=== PATIENT | female | born 1945 | race Caucasian/White ===

== ENCOUNTER 2018-08-08 08:17 | Day surgery (SDC) | payer OTHER, MEDICARE ==
[2018-08-02 13:57] LABS: Absolute Lymphocytes (CBC) 1.8 K/uL (0.7-4.9); Absolute Monocytes 0.4 K/uL (0.1-1.3); Absolute Neutrophil 5.2 K/uL (1.8-8.0); Basophils % 0.5 % (0-1.3); Eosinophils % 2.2 % (0-4.4); Hematocrit 42.7 % (36.0-45.0); Lymphocytes % 23.8 % (15.3-44.8); MPV 8.4 fL (7.6-11.3); Monocytes % 5.5 % (3.3-12.3); RBC Red Blood Cell Count 4.78 M/uL (3.86-4.86)
[2018-08-02 14:03] LABS: Protime INR 0.95
[2018-08-02 14:09] LABS: Potassium 3.8 mmol/L (3.5-5.1)
--- NOTE | 2018-08-03 05:30 | EKG ---
Test Date: 2018-08-02 Test Time: 12:01:06 Pigment Processor: WILLIAM MEASUREMENT RESULTS: Intervals: Rate: 88 [place]: 198 QRSD: 84 QT: 356 QTc: 430 [place]: P: 48 [place]: 198 QRS: -19 T: 47 INTERPRETIVE STATEMENTS: Sinus rhythm with occasional premature ventricular complexes Abnormal ECG Compared to ECG 11/13/2012 09:25:01 Ventricular premature complex(es) now present Sinus bradycardia no longer present Electronically Signed On 08-03-18 05:29:53 CDT by Enrike Roach
--- OUTSIDE RECORDS SUMMARY | 2018-08-08 08:37 | XMS REPORT | Clinical Summary ---
:1945 Author Organization [facility] Address [address] [place] [address] Care Team Providers Name Role Phone Sourav Gomez MD Primary Care Provider Allergies Active Allergy Reactions Severity Noted Date Comments Hydrocodone-Acetaminophen GI Intolerance, Hives High 06/11/2016 Medications Medication Sig Dispensed Refills Start End Status Date Date losartan (COZAAR) 100 Take 100 mg by 0 Active MG tablet mouth daily. hydroCHLOROthiazide Take 25 mg by 0 Active (HYDRODIURIL) 25 MG mouth daily. tablet amLODIPine (NORVASC) 10 0 Active mg tablet 7 losartan-hydrochlorothi 0 Active azide (HYZAAR) 100-25 7 mg per tablet simvastatin (ZOCOR) 40 0 Active MG tablet 7 COMBIVENT RESPIMAT 0 Active 20-100 mcg/actuation 7 mist inhaler anastrozole (ARIMIDEX) Take 1 mg by 0 Active 1 mg chemo tablet mouth. 6 aspirin (ECOTRIN) 81 MG Take 81 mg by 0 Active enteric coated tablet mouth daily. calcium Take by mouth. 0 Active carbonate/vitamin D3 (CALCIUM 600 + D,3, ORAL) ascorbic acid, vitamin Take 500 mg by 0 Active C, (ascorbic acid with mouth daily. rhona hips) 500 MG tablet potassium 99 mg tablet Take by mouth. 0 Active omega-3/dha/epa/dpa/fis Take by mouth. 0 Active h oil (OMEGA-3 2100 ORAL) therapeutic Take 1 tablet 0 Active multivitamin by mouth daily. (THERAGRAN) tablet garlic 1,000 mg capsule Take by mouth. 0 Active cinnamon bark 500 mg Take 500 mg by 0 Active capsule mouth daily. albuterol (PROAIR Inhale 2 puffs 18 g 11 Active HFA,PROVENTIL every 6 (six) 9 020 HFA,VENTOLIN HFA) 90 hours as needed mcg/actuation inhaler for wheezing. fluticasone-vilanterol Inhale 1 3 each 1 Active (BREO ELLIPTA) 200-25 inhalations 9 019 mcg/dose blister with once daily for device powder for 90 days. inhalation budesonide-formoterol Inhale 2 puffs 0 Discontinued (SYMBICORT) 160-4.5 2 (two) times a 018 mcg/actuation inhaler day. fluticasone-vilanterol Inhale 1 1 each 3 Discontinued (BREO ELLIPTA) 200-25 inhalations 8 019 mcg/dose blister with once daily. 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 Encounters Date Type Specialty Care Team Description 07/03/2018 Refill Pulmonology Aminata Soriano MA 06/04/2018 Office Visit Pulmonology Yelena Willard MD Mild intermittent asthma, unspecified whether complicated (Primary Dx) 04/30/2018 Clinical Support Pulmonology Yelena Willard MD Dyspnea, unspecified type Randi Thomas 04/30/2018 Clinical Support Pulmonology Yelena Willard MD Dyspnea, unspecified type Randi Thomas 04/30/2018 Office Visit Pulmonology Yelena Willard MD Dyspnea, unspecified type (Primary Dx); Seasonal allergic rhinitis due to pollen; Intermittent asthma, unspecified asthma severity, unspecified whether complicated after 08/07/2017 Family History Medical History Relation Name Comments Cancer Mother Relation Name Status Comments Mother Social History Tobacco Use Types Packs/Day Years Used Date Former Smoker Cigarettes 1 30 Smokeless Tobacco: Never Used Alcohol Use Drinks/Week oz/Week Comments No Sex Assigned at Date Recorded Not on file Job Start Date Occupation Industry Not on file Not on file Not on file Travel History Travel Start Travel End No recent travel history available. Last Filed Vital Signs Vital Sign Reading Time Taken Blood Pressure 158/80 06/04/2018 10:55 AM [employer] Pulse 61 06/04/2018 10:55 AM [employer]ION SPECIALIST Temperature 36.8 C (98.2 F) 06/04/2018 10:55 AM [employer] EXTENSION SPECIALIST Respiratory Rate - - Oxygen Saturation 100% 06/04/2018 10:55 AM [employer] EXTENSION SPECIALIST Inhaled Oxygen Concentration - - Weight 76.9 kg (169 lb 8 oz) 06/04/2018 10:55 AM [employer] EXTENSION SPECIALIST Height 166.4 cm (5' 5.5") 04/30/2018 9:55 AM [employer]ESTRY EXTENSION SPECIALIST Body Mass Index 27.78 06/04/2018 10:55 AM [employer]Y EXTENSION SPECIALIST Plan of Treatment Date Type Specialty Care Team Description 12/03/2018 Office [place] [id number] [id number] Health Maintenance Due Date Last Done Comments BREAST CANCER SCREENING 10/21/1993 COLON CANCER SCREENING 10/21/1993 SHINGLES VACCINES (#1) 10/21/1993 65+ PNEUMOCOCCAL VACCINE (1 of 2 - PCV13) 10/21/2008 PNEUMOCOCCAL POLYSACCHARIDE VACCINE AGE 65 AND OVER 10/21/2008 INFLUENZA VACCINE 12/20/2017 Implants Implanted Type Area [employer] Device Shelf Model / Identifier Expiration Serial / Date Lot Oxf Twin-Pegged Cmntd Fem Sm - [id number] IMPLANT Left: [employer] [id number] / Implanted: Qty: 1 on 06/11/2016 by Sanchez Gallego MD DEVICES Knee / [id number] Cement Bone Full-Dose Premixed With Tobramycin Simplex P 1ea - [id number] Surgical Left: TING 09/18/2017 [id number] / Implanted: Qty: 1 on 06/11/2016 by Sanchez Gallego MD Bone Cement Knee ORTHOPEDICS / HIPS-KNEES [id number] Procedures Procedure Name Priority Date/Time Associated Diagnosis Comments PULMONARY FUNCTION Routine 04/30/2018 10:27 AM Dyspnea, unspecified Results for this TEST [employer]Y EXTENSION SPECIALIST type procedure are in the results section. after 08/07/2017 Results Pulmonary function tests, complete (04/30/2018 10:27 AM FORESTRY EXTENSION SPECIALIST) FEV1 Post 1.93 1.67 - 2.90 L [facility] FEV1/FVC % Post 66.56 65.29 - 84.88 % [facility] MVV Post 80.37 72.13 - 97.59 L/min [facility] FVC Post 2.89 2.31 - 3.76 L [facility] PEF Post 7.39 3.77 - 7.36 L/s [facility] FEF 25-75% Post 0.99 0.50 - 3.09 L/s [facility] R0.5IN Pre 3.09 3.06 - 3.06 cmH2O*s/L [facility] FRCpl Pre 3.73 1.98 - 3.62 L [facility] RV Pre 3.01 1.62 - 2.77 L [facility] TLC Pre 5.66 4.20 - 6.18 L [facility] RV % TLC Pre 53.23 34.53 - 53.71 % [facility] VC Pre 2.65 2.31 - 3.76 L [facility] ERV Pre 0.72 0.61 - 0.61 L [facility] IC Pre 1.92 2.09 - 2.09 L [facility] sR0.5IN Pre 13.44 cmH2O*s [facility] Raw Pre 5.42 3.06 - 3.06 cmH2O*s/L [facility] sGaw Predicted 0.04 0.10 - 0.10 1/(cmH2O*s) [facility] FEV1 Pre 1.61 1.67 - 2.90 L [facility] FEV1/FVC % Pre 61.77 65.29 - 84.88 % [facility] MVV Pre 78.93 72.13 - 97.59 L/min [facility] FVC Pre 2.60 2.31 - 3.76 L [facility] PEF Pre 6.42 3.77 - 7.36 L/s [facility] FEF 25-75% Pre 0.68 0.50 - 3.09 L/s [facility] DLCO Pre 18.62 10.56 - 25.25 ml/(min*mmHg) [facility] DL/VA Pre 3.91 2.57 - 5.32 ml/(min*mmHg*L) [facility] VA SB Pre 4.76 5.04 - 5.04 L [facility] FEV1 Predicted 2.29 [facility] FEV1 LLN 1.67 [facility] FEV1 % Pre of Predicted 70.3 % [facility] FEV1 % Post of Predicted 84.2 % [facility] FEV1 % Change 19.9 % [facility] FVC Predicted 3.04 [facility] FVC LLN 2.31 [facility] FVC % Pre of Predicted 85.6 % [facility] FVC % Post of Predicted 95.3 % [facility] FVC % Change 11.3 % [facility] FEV1/FVC % Predicted 75 [facility] FEV1/FVC % LLN 65 [facility] FEV1/FVC % Pre of Predicted 82.3 % [facility] FEV1/FVC % Post of Predicted 88.6 % [facility] FEV1/FVC % Change 7.8 % [facility] FEF 25-75% Predicted 1.80 [facility] FEF 25-75% LLN 0.50 [facility] FEF 25-75% % Pre of Predicted 37.9 % [facility] FEF 25-75% % Post of Predicted 55.2 % [facility] FEF 25-75% % Change 45.4 % [facility] PEF Predicted 5.56 [facility] PEF LLN 3.77 [facility] PEF % Pre of Predicted 115.5 % [facility] PEF % Post of Predicted 132.8 % [facility] PEF % Change 15.0 % [facility] VC Predicted 3.04 [facility] VC LLN 2.31 [facility] VC % Pre of Predicted 87.1 % [facility] ERV Predicted 0.61 [facility] ERV LLN 0.61 [facility] ERV % Pre of Predicted 119.6 % [facility] FRCpl % Predicted 2.80 [facility] FRCpl % LLN 1.98 [facility] FRCpl % Pre of Predicted 133.4 % [facility] IC Predicted 2.09 [facility] IC LLN 2.09 [facility] IC % Pre of Predicted 91.9 % [facility] RV Predicted 2.20 [facility] RV LLN 1.62 [facility] RV % Pre of Predicted 137.2 % [facility] RV % TLC Predicted 44 [facility] RV % TLC LLN 35 [facility] RV % TLC % Pre of Predicted 120.6 % [facility] TLC Predicted 5.19 [facility] TLC LLN 4.20 [facility] TLC % Pre of Predicted 109.0 % [facility] Raw Predicted 3.06 [facility] Raw LLN 3.06 [facility] Raw % Pre of Predicted 177.3 % [facility] R0.5IN Predicted 3.06 [facility] R0.5IN LLN 3.06 [facility] R0.5IN % Pre of Predicted 101.0 % [facility] sGaw Predicted 0.10 [facility] sGaw LLN 0.10 [facility] sGaw % Pre of Predicted 41.6 % [facility] DLCO Predicted 17.90 [facility] DLCO LLN 10.56 [facility] DLCO % Pre of Predicted 104.0 % [facility] DLCOc Predicted 17.90 [facility] DLCOc LLN 10.56 [facility] DL/VA Predicted 3.95 [facility] DL/VA LLN 2.57 [facility] DL/VA % Pre of Predicted 99.2 % [facility] KCOc SB Predicted 3.95 [facility] KCOc SB LLN 2.57 [facility] VA SB Predicted 5.04 [facility] VA SB LLN 5.04 [facility] VA SB % Pre of Predicted 94.4 % [facility] MIP Predicted 49.42 [facility] MIP LLN 22.70 [facility] MEP Predicted 61.16 [facility] MEP LLN 19.26 [facility] MVV Predicted 85 [facility] MVV LLN 72 [facility] MVV % Pre of Predicted 93.0 % [facility] MVV % Post of Predicted 94.7 % [facility] MVV Change 1.8 % [facility] Narrative Performed At Performing Organization Address City/State/[facility] Phone Number [facility] [address] [place] [address] after 08/07/2017 Insurance Payer Benefit Plan / Group Subscriber ID Type Phone Address MEDICARE MEDICARE PART A AND B xxxxxxxxxxx Medicare [place], [place] AARP AARP SUPPLEMENT xxxxxxxxxxx Commercial Advance Directives Patient has advance care planning documents, and code status on file. For more information, please contact:Michael Marcelino[address] [place] [address] Code Status Date Activated Date Inactivated Comments Full Code 06/11/2016 5:02 PM 06/15/2016 5:09 PM Code Status decision reached by: Patient Full Code 06/11/2016 12:43 PM 06/11/2016 5:02 PM Code Status decision reached by: Patient
--- OUTSIDE RECORDS SUMMARY | 2018-08-08 08:40 | XMS REPORT | Continuity of Care Document ---
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 010 and Spine COPD (<span Active Problem 09/13/2016 Ortho ID="[id number]">Co and Spine nfirmed</span>) Hypercholesteremia Active Problem 09/13/2016 [facility] Hypertension Active Problem 09/13/2016 [facility] Arthritis Active Problem 06/14/2016 [facility] OSTEOARTHRITIS OF Active [facility] KNEE, UNSPECIFIED [place] Medications Medication Details Route Status Patient Ordering Order Source Instructions Provider Date celecoxib 200 MG 200 mg=1 cap, Active Oral Capsule PO, BID, # 28 2017 Ortho [Celebrex] cap, 0 and Refill(s), Spine Pharmacy: [facility] [id number] tramadol 50 mg=1 tab, PO, Active hydrochloride 50 MG Q6H, PRN Pain, X 2017 Ortho Oral Tablet 10 day, # 40 and tab, 0 Spine Refill(s), given to patient rifaMPIN 150 mg 600 mg=4 cap, Active oral capsule PO, [id number], X 2017 Ortho 14 day, # 56 and cap, 0 Spine Refill(s), Pharmacy: [facility] [id number] POLYETHYLENE GLYCOL 17 gm, PO, Active 3350 142 MG/ML Oral Daily, X 15 day, 2017 Ortho Solution [Miralax] # 255 gm, 0 and Refill(s), Spine Pharmacy: [facility] [id number] Docusate Sodium 100 100 mg=1 cap, Active MG Oral Capsule PO, BID, # 20 2017 Ortho cap, 0 and Refill(s), Spine Pharmacy: [facility] [id number] carvedilol 6.25 mg 3.125 mg=0.5 Active oral tablet tab, PO, Q12H, # 2017 Ortho 30 tab, 0 and Refill(s), Spine Pharmacy: [facility] [id number] Aspirin 325 MG 325 mg=1 tab, Active Enteric Coated PO, BID, # 60 2017 Ortho Tablet tab, 0 and Refill(s), Spine Pharmacy: [facility] [id number] ferrous sulfate 325 325 mg=1 tab, Active mg oral enteric PO, BID, give 2017 Ortho coated tablet with orange and juice, # 60 tab, Spine 1 Refill(s), Pharmacy: [facility] [place] [id number] anastrozole 1 mg, 1 tab, No Longer Route: PO, Drug Active 2016 Ortho form: TAB, and Bedtime, Dosing Spine Weight 73.091, kg, Start date: 09/09/16 21:00:00 CDT, Duration: 30 day, Stop date: 10/08/16 21:00:00 CDTNotes: (Same as: Arimidex) Chemotherapy agent/Handle with caution WASTE: F/P - Black; E - Yellow Coreg 3.125 mg, 0.5 No Longer tab, Route: PO, Active 2016 Ortho Drug form: TAB, and Q12H, Dosing Spine Weight 73.091, kg, Start date: 09/09/16 21:00:00 CDT, Duration: 30 day, Stop date: 10/09/16 9:00:00 CDTNotes: Give with food. (Same As: Coreg) Rifampin 600 mg, 4 cap, No Longer Route: PO, Drug Active 2016 Ortho form: CAP, and PRND64H, Dosing Spine Weight 73.091, kg, Start date: 09/09/16 15:00:00 CDT, Duration: 30 day, Stop date: 10/08/16 15:00:00 CDTNotes: (Same as: Rifadin) Dexamethasone 10 mg, 1 mL, Inactive Route: IVP, Drug 2016 Ortho form: INJ, ONCE, and Dosing Weight Spine 73.091, kg, Start date: 09/09/16 12:25:00 CDT, Stop date: 09/09/16 12:25:00 CDTNotes: MEDICATION WASTE Product Size: 10 mg Product Wasted: ___ mg Hydralazine 5 mg, 0.25 mL, No Longer Route: IV, Drug Active 2016 Ortho form: INJ, Q4H, and Dosing Weight Spine 73.091, kg, PRN Hypertension, Start date: 09/09/16 12:23:00 CDT, Duration: 30 day, Stop date: 10/09/16 12:22:00 CDT, Systolic Blood pressure greater than 160 mmHgNotes: (Same as: Apresoline) Push over 5 minutes Hydrochlorothiazide 1 tab, Route: No Longer 25 MG / Losartan PO, Drug Form: Active 2016 Ortho Potassium 100 MG TAB, Dosing and Oral Tablet Weight 73.091, Spine kg, Daily, Start date: 09/09/16 9:00:00 CDT, Duration: 30 day, Stop date: 10/08/16 9:00:00 CDTNotes: (losartan-hydroc hlorothiazide 100-25 mg TAB) (Same as: Hyzaar) Non-formulary POLYETHYLENE GLYCOL 17 gm, 1 pkt, No Longer 3350 Route: PO, Drug Active 2016 Ortho form: PWDR, and Daily, Dosing Spine Weight 73.091, kg, Start date: 09/09/16 9:00:00 CDT, Duration: 30 day, Stop date: 10/08/16 9:00:00 CDTNotes: Dissolve in 8 oz of water or juice. (Same as: Miralax) Simvastatin 40 mg, 2 tab, No Longer Route: PO, Drug Active 2016 Ortho form: TAB, and Bedtime, Dosing Spine Weight 73.091, kg, Start date: 09/08/16 21:00:00 CDT, Duration: 30 day, Stop date: 10/07/16 21:00:00 CDTNotes: (Same as: Zocor) celecoxib 200 mg, 1 cap, No Longer Route: PO, Drug Active 2016 Ortho form: CAP, and [id number], Dosing Spine Weight 73.091, kg, Start date: 09/08/16 21:00:00 CDT, Duration: 30 day, Stop date: 10/08/16 9:00:00 CDTNotes: NSAID. Please check indication. Not for seizure. (Same As: CeleBREX) Vancomycin 1,000 mg, Route: No Longer IVPB, Q12H, Active 2016 Ortho Dosing Weight and 73.091, kg, Time Spine Critical Medication, Start date: 09/08/16 21:00:00 CDT, Duration: 4 doses or times, Stop date: 09/10/16 9:00:00 CDT, Pharmacy to adjust dose for renal functionNotes: TIME CRITICAL MEDICATION (Same As: Vancocin) Infusion rate 2001 mg: infuse over 2.5 hours MEDICATION WASTE Product Size: 1000 mg Product Wasted: ___ mg Tranexamic Acid 1.95 gm, 3 tab, Inactive Route: PO, Drug 2016 Ortho form: TAB, ONCE, and Dosing Weight Spine 73.091, kg, Start date: 09/08/16 18:25:00 CDT, Stop date: 09/08/16 18:25:00 CDTNotes: (Same as: Lysteda) Non-Formulary Ondansetron 4 mg, 2 mL, No Longer Route: IV, Drug Active 2016 Ortho form: INJ, Q8H, and Dosing Weight Spine 73.091, kg, PRN Nausea, Start date: 09/08/16 18:25:00 CDT, Duration: 3 doses or times, Stop date: Limited # of timesNotes: (Same as: Zofran) MEDICATION WASTE Product Size: 4 mg Product Wasted: ___ mg Tramadol 100 mg, 2 tab, No Longer Route: PO, Drug Active 2016 Ortho form: TAB, and Q6Hnow, Dosing Spine Weight 73.091, kg, Start date: 09/08/16 18:00:00 CDT, Duration: 30 day, Stop date: 10/08/16 15:00:00 CDTNotes: Not to exceed 400mg/day. (Same As: Ultram) Symbicort 160/4.5 2 puff, Route: No Longer inhalation aerosol INHALER, Drug Active 2016 Ortho with adapter Form: AERO/A, and Dosing Weight Spine 73.091, kg, QID, Start date: 09/08/16 17:00:00 CDT, Stop date: 10/08/16 13:00:00 CDTNotes: (Same as: Symbicort) WASTE: Aerosol - Return to Pharmacy Docusate 100 mg, 1 cap, No Longer Route: PO, Drug Active 2016 Ortho form: CAP, BID, and Dosing Weight Spine 73.091, kg, Start date: 09/08/16 17:00:00 CDT, Duration: 30 day, Stop date: 10/08/16 9:00:00 CDTNotes: (Same as: Colace) (Do Not Crush) Aspirin 325 MG 325 mg, 1 tab, No Longer Enteric Coated Route: PO, Drug Active 2016 Ortho Tablet form: ECTAB, and BID, Dosing Spine Weight 73.091, kg, Start date: 09/08/16 17:00:00 CDT, Duration: 30 day, Stop date: 10/08/16 9:00:00 CDTNotes: (Do Not Crush) Do not crush or chew. Cefazolin 2 gm, 100 mL, No Longer Route: IVPB, Active 2016 Ortho Drug form: INJ, and ABXQ6H, Dosing Spine Weight 73.091, kg, Start date: 09/08/16 14:30:00 CDT, Duration: 6 doses or times, Stop date: 09/09/16 20:30:00 CDTNotes: Same as: Ancef Trazodone 50 mg, 1 tab, No Longer Route: PO, Drug Active 2016 Ortho form: TAB, and Bedtime, Dosing Spine Weight 73.091, kg, PRN Insomnia, Start date: 09/08/16 12:25:00 CDT, Duration: 30 day, Stop date: 10/08/16 12:24:00 CDTNotes: (Same As: Desyrel) Ondansetron 4 mg, 2 mL, Inactive Route: IVP, Drug 2016 Ortho form: INJ, Q8H, and Dosing Weight Spine 73.091, kg, PRN Nausea & Vomiting, Start date: 09/08/16 12:25:00 CDT, Duration: 30 day, Stop date: 10/08/16 12:24:00 CDTNotes: (Same as: Shaun) MEDICATION WASTE Product Size: 4 mg Product Wasted: ___ mg Melatonin 3 mg, 1 tab, No Longer Route: PO, Drug Active 2016 Ortho form: TAB, and Bedtime, Dosing Spine Weight 73.091, kg, PRN Insomnia, Start date: 09/08/16 12:25:00 CDT, Duration: 30 day, Stop date: 10/08/16 12:24:00 CDTNotes: (Same as: Melatonin) Bisacodyl 10 mg, 1 supp, No Longer Route: CT, Drug Active 2016 Ortho form: SUPP, and Daily, Dosing Spine Weight 73.091, kg, PRN Constipation, Start date: 09/08/16 12:25:00 CDT, Duration: 30 day, Stop date: 10/08/16 12:24:00 CDTNotes: (Same As: Dulcolax, Bisco-Lax) Morphine 4 mg, 0.4 mL, No Longer Route: IVP, Drug Active 2016 Ortho form: INJ, Q4H, and Dosing Weight Spine 73.091, kg, PRN Pain Score 7-10, Start date: 09/08/16 12:25:00 CDT, Duration: 30 day, Stop date: 10/08/16 12:24:00 CDTNotes: (Same as:MORPhine Sulfate) Oxycodone 5 mg, 1 tab, No Longer Hydrochloride 5 MG Route: PO, Drug Active 2016 Ortho Oral Tablet form: TAB, Q4H, and Dosing Weight Spine 73.091, kg, PRN Pain Score 6-10, Start date: 09/08/16 12:25:00 CDT, Duration: 30 day, Stop date: 10/08/16 12:24:00 CDTNotes: (Same as: Roxicodone) Milk of Magnesia 30 ml, Route: No Longer PO, Drug Form: Active 2017 Ortho SUSP, Dosing and Weight 73.091, Spine kg, Daily, PRN Constipation, Start date: 09/08/16 12:25:00 CDT, Duration: 30 day, Stop date: 10/08/16 12:24:00 CDTNotes: (Same as: Milk of Magnesia, MOM) sodium chloride 1,000 mL, Rate: No Longer 0.9% 1000 ml INJ 85 ml/hr, Infuse Active 2016 Ortho 1,000 mL over: 11.8 hr, and Route: IV, Spine Dosing Weight 73.091 kg, Total Volume: 1,000, Start date: 09/08/16 12:25:00 CDT, Duration: 30 day, Stop date: 10/08/16 12:24:00 CDT Tylenol 650 mg, 2 tab, No Longer Route: PO, Drug Active 2016 Ortho form: TAB, Q6H, and Dosing Weight Spine 73.091, kg, PRN For Temp > 100.4 F, Start date: 09/08/16 12:25:00 CDT, Duration: 30 day, Stop date: 10/08/16 12:24:00 CDTNotes: Do not exceed 4 gm/day. (Same as: Tylenol) Maalox Advanced 15 mL, Route: No Longer Regular Strength PO, Drug Form: Active 2017 Ortho SUSP SUSP, Dosing and Weight 73.091, Spine kg, QID, PRN Indigestion, Start date: 09/08/16 12:25:00 CDT, Duration: 30 day, Stop date: 10/08/16 12:24:00 CDTNotes: (aluminum hydroxide-magnes ium hyd- simethicone [id number]/5ml 30 ml ud JOON) Famotidine 20 mg, 1 tab, No Longer Route: PO, Drug Active 2016 Ortho form: TAB, BID, and Dosing Weight Spine 73.091, kg, PRN Indigestion, Start date: 09/08/16 12:25:00 CDT, Duration: 30 day, Stop date: 10/08/16 12:24:00 CDTNotes: (Same as: Pepcid) Hydromorphone 0.5 mg, 0.25 mL, Inactive Route: IVP, Drug 2016 Ortho form: INJ, and Q5Min, Dosing Spine Weight 73.091, kg, PRN Pain Score 7-10, Start date: 09/08/16 6:50:00 CDT, Duration: 4 doses or times, Stop date: 09/08/16 13:00:00 CDTNotes: Same as Dilaudid Oxycodone 5 mg, 1 tab, Inactive Route: PO, Drug 2016 Ortho form: TAB, Q4H, and Dosing Weight Spine 73.091, kg, PRN Pain Score 4-6, Start date: 09/08/16 6:50:00 CDT, Stop date: 09/08/16 13:00:00 CDTNotes: (Same as: Roxicodone) Labetalol 10 mg, 2 mL, Inactive Route: IVP, Drug 2016 Ortho form: INJ, and Q5Min, Dosing Spine Weight 73.091, kg, PRN Elevated BP, Start date: 09/08/16 6:50:00 CDT, Duration: 5 doses or times, Stop date: 09/08/16 13:00:00 CDT Naloxone 0.4 mg, 1 mL, Inactive Route: IVP, Drug 2016 Ortho form: INJ, and Q2MIN, Dosing Spine Weight 73.091, kg, PRN Narcotic Reversal, Start date: 09/08/16 6:50:00 CDT, Duration: 8 doses or times, Stop date: Limited # of timesNotes: Same as Narcan Ondansetron 4 mg, 2 mL, Inactive Route: IVP, Drug 2016 Ortho form: INJ, ONCE, and Dosing Weight Spine 73.091, kg, PRN Nausea & Vomiting, Start date: 09/08/16 6:50:00 CDTNotes: (Same as: Zofran) MEDICATION WASTE Product Size: 4 mg Product Wasted: ___ mg Flumazenil 0.2 mg, 2 mL, Inactive Route: IVP, Drug 2016 Ortho form: INJ, PRN, and Dosing Weight Spine 73.091, kg, PRN Benzodiazepine Reversal, Initial dose, Start date: 09/08/16 6:50:00 CDT, Stop date: 09/08/16 13:00:00 CDTNotes: (Same as: Romazicon) vancomycin + sodium 500 mg, Route: No Longer chloride 0.9% 250 IRRIG, ONCALL, Active 2016 Ortho mL INJ (for IV set) Start date: and 250 mL 09/08/16 6:00:00 Spine CDT, Duration: 1 doses or times, Stop date: 09/08/16 14:00:00 CDTNotes: TIME CRITICAL MEDICATION (Same As: Vancocin) ropivacaine 100 mL, Route: No Longer InFILtration(loc Active 2016 Ortho al), Drug Form: and INJ, ONCALL, Spine Start date: 09/08/16 6:00:00 CDT, Stop date: 09/08/16 14:00:00 CDTNotes: NOT FOR IV use Ropivacaine 5 mg/mL (49.25 mL) Epinephrine 1 mg/mL (0.5 mL) Clonidine 0.1 mg/mL (0.8 mL) Ketorolac 30 mg/mL (1 mL) Normal Saline 48.45 mL polymyxin B sulfate 125,000 unit, No Longer + sodium chloride Route: IRRIG, Active 2016 Ortho 0.9% 250 mL INJ ONCALL, Start and (for IV set) 250 mL date: 09/08/16 Spine 6:00:00 CDT, Duration: 1 doses or times, Stop date: 09/08/16 14:00:00 CDTNotes: (Same as: Polymyxin B Sulfate) Ancef 1 gm, IV, Q8H, 0 Active Refill(s) 2017 Ortho and Spine Lactated Ringers 1,000 mL, Rate: Inactive 1,000 mL 40 ml/hr, Infuse 2017 Ortho over: 25 hr, and Route: IV, Spine Dosing Weight 73.091 kg, Total Volume: 1,000, Start date: 09/08/16 5:31:00 CDT, Duration: 30 day, Stop date: 10/08/16 5:30:00 CDT Ancef 2 gm, 100 mL, Inactive Route: IVPB, 2017 Ortho Drug form: INJ, and ONCE, Dosing Spine Weight 73.091, kg, Start date: 09/08/16 5:30:00 CDT, Duration: 1 doses or times, Stop date: 09/08/16 5:30:00 CDT, Surgical Prophylaxis Only; For patients Notes: Same as: Ancef Celebrex 400 mg, Route: Inactive PO, Drug form: 2017 Ortho CAP, ONCE, and Dosing Weight Spine 73.091, kg, Start date: 09/08/16 5:30:00 CDT, Stop date: 09/08/16 5:30:00 CDT Tranexamic Acid 1,950 mg, Route: Inactive PO, ONCE, Dosing 2017 Ortho Weight 73.091, and kg, Start date: Spine 09/08/16 5:30:00 CDT, Stop date: 09/08/16 5:30:00 CDT Dexamethasone 10 mg, Route: Inactive IV, ONCE, Dosing 2017 Ortho Weight 73.091, and kg, Start date: Spine 09/08/16 5:30:00 CDT, Stop date: 09/08/16 5:30:00 CDT Zofran 4 mg, Route: IV, Inactive ONCE, Dosing 2017 Ortho Weight 73.091, and kg, Start date: Spine 09/08/16 5:30:00 CDT, Stop date: 09/08/16 5:30:00 CDT vancomycin 1 g 1 gm, IV, Q12H, Active intravenous # 20 doses or 2017 Ortho injection times, 0 and Refill(s) Spine Home Medication PO, Daily, No Longer Refill(s) 0 Active 2016 Ortho and Spine aspirin 81 mg 81 mg=1 tab, PO, No Longer tablet, enteric Daily, # 90 tab, Active 2017 Ortho coated 3 Refill(s) and Spine Vancomycin 750 mg, IV, No Longer Q12H, 0 Active 2017 Ortho Refill(s) and Spine ceFAZolin 2 g 2 gm, IV, Q8H, # No Longer injection 30 doses or Active 2016 Ortho times, 0 and Refill(s) Spine Ancef 2 gm, 100 mL, Inactive Route: IVPB, 2016 Ortho Drug form: INJ, and Q6H, Dosing Spine Weight 72.273, kg, Start date: 08/10/16 14:00:00 CDT, Stop date: 09/09/16 8:00:00 CDT, > 50 kg; Pediatric DosingNotes: Same as Ancef Aspirin 81 MG 81 mg=1 tab, PO, Active Chewable Tablet BID, # 42 tab, 0 2016 Ortho Refill(s), and Pharmacy: [facility] [id number] celecoxib 200 MG 200 mg=1 cap, Active Oral Capsule PO, BID, # 28 2016 Ortho [Celebrex] cap, 0 and Refill(s), Spine Pharmacy: [facility] [id number] Dexamethasone 10 mg, 1 mL, Inactive Route: IVP, Drug 2016 Ortho form: INJ, ONCE, and Dosing Weight Spine 72.955, kg, Start date: 08/09/16 14:30:00 CDT, Stop date: 08/09/16 14:30:00 CDTNotes: MEDICATION WASTE Product Size: 10 mg Product Wasted: ___ mg anastrozole 1 mg, 1 tab, No Longer Route: PO, Drug Active 2016 Ortho form: TAB, and Daily, Dosing Spine Weight 72.273, kg, Start date: 08/09/16 9:00:00 CDT, Duration: 30 day, Stop date: 09/07/16 9:00:00 CDTNotes: (Same as: Arimidex) Chemotherapy agent/Handle with caution WASTE: F/P - Black; E - Yellow Hydrochlorothiazide 1 tab, Route: No Longer 25 MG / Losartan PO, Drug Form: Active 2017 Ortho Potassium 100 MG TAB, Dosing and Oral Tablet Weight 72.273, Spine kg, Daily, Start date: 08/09/16 9:00:00 CDT, Duration: 30 day, Stop date: 09/07/16 9:00:00 CDTNotes: (losartan-hydroc hlorothiazide 100-25 mg TAB) (Same as: Hyzaar) Non-formulary POLYETHYLENE GLYCOL 17 gm, 1 pkt, No Longer 3350 Route: PO, Drug Active 2016 Ortho form: PWDR, and Daily, Dosing Spine Weight 72.273, kg, Start date: 08/09/16 9:00:00 CDT, Duration: 30 day, Stop date: 09/07/16 9:00:00 CDTNotes: Dissolve in 8 oz of water or juice. (Same as: Miralax) tramadol 50 mg=1 tab, PO, Active hydrochloride 50 MG Q4H, PRN Pain, X 2017 Ortho Oral Tablet 10 day, # 60 and tab, 0 Refill(s) Spine Vancomycin 1,000 mg, Route: No Longer IVPB, Q12H, Active 2016 Ortho Dosing Weight and 72.955, kg, Time Spine Critical Medication, Start date: 08/08/16 23:30:00 CDT, Duration: 4 doses or times, Stop date: 08/10/16 11:30:00 CDT, Pharmacy to adjust dose for renal functionNotes: TIME CRITICAL MEDICATION (Same As: Vancocin) Infusion rate 2001 mg: infuse over 2.5 hours MEDICATION WASTE Product Size: 1000 mg Product Wasted: ___ mg Celebrex 200 mg, 1 cap, Inactive Route: PO, Drug 2016 Ortho form: CAP, BID, and Dosing Weight Spine 72.273, kg, Start date: 08/08/16 21:00:00 CDT, Duration: 30 day, Stop date: 09/07/16 9:00:00 CDTNotes: NSAID. Please check indication. Not for seizure. (Same As: CeleBREX) Simvastatin 40 mg, 1 tab, No Longer Route: PO, Drug Active 2016 Ortho form: TAB, and Bedtime, Dosing Spine Weight 72.273, kg, Start date: 08/08/16 21:00:00 CDT, Duration: 30 day, Stop date: 09/06/16 21:00:00 CDTNotes: (Same as: Zocor) meloxicam 7.5 mg, 1 tab, No Longer Route: PO, Drug Active 2016 Ortho form: TAB, BID, and Dosing Weight Spine 72.273, kg, Start date: 08/08/16 21:00:00 CDT, Duration: 30 day, Stop date: 09/07/16 9:00:00 CDTNotes: (Same as: Mobabena) celecoxib 200 mg, 1 cap, No Longer Route: PO, Drug Active 2016 Ortho form: CAP, Q12H, and Dosing Weight Spine 72.273, kg, Start date: 08/08/16 21:00:00 CDT, Duration: 30 day, Stop date: 09/07/16 9:00:00 CDTNotes: NSAID. Please check indication. Not for seizure. (Same As: CeleBREX) Tranexamic Acid 1.95 gm, 3 tab, Inactive Route: PO, Drug 2016 Ortho form: TAB, ONCE, and Dosing Weight Spine 72.955, kg, Start date: 08/08/16 20:30:00 CDT, Stop date: 08/08/16 20:30:00 CDTNotes: (Same as: Lysteda) Non-Formulary Ondansetron 4 mg, 2 mL, No Longer Route: IV, Drug Active 2016 Ortho form: INJ, Q8H, and Dosing Weight Spine 72.955, kg, PRN Nausea, Start date: 08/08/16 20:30:00 CDT, Duration: 3 doses or times, Stop date: Limited # of timesNotes: (Same as: Zofran) MEDICATION WASTE Product Size: 4 mg Product Wasted: ___ mg Symbicort 160/4.5 2 puff, Route: No Longer inhalation aerosol INHALER, Drug Active 2016 Ortho with adapter Form: AERO/A, and Dosing Weight Spine 72.273, kg, BID, Start date: 08/08/16 20:00:00 CDT, Duration: 30 day, Stop date: 09/07/16 8:00:00 CDTNotes: (Same as: Symbicort) WASTE: Aerosol - Return to Pharmacy Docusate 100 mg, 1 cap, No Longer Route: PO, Drug Active 2016 Ortho form: CAP, BID, and Dosing Weight Spine 72.273, kg, Start date: 08/08/16 17:00:00 CDT, Duration: 30 day, Stop date: 09/07/16 9:00:00 CDTNotes: (Same as: Colace) (Do Not Crush) Famotidine 20 mg, 1 tab, No Longer Route: PO, Drug Active 2016 Ortho form: TAB, BID, and Dosing Weight Spine 72.955, kg, Start date: 08/08/16 17:00:00 CDT, Duration: 30 day, Stop date: 09/07/16 9:00:00 CDTNotes: (Same as: Pepcid) Aspirin 325 MG 325 mg, 1 tab, No Longer Enteric Coated Route: PO, Drug Active 2016 Ortho Tablet form: ECTAB, and BID, Dosing Spine Weight 72.273, kg, Start date: 08/08/16 17:00:00 CDT, Duration: 30 day, Stop date: 09/07/16 9:00:00 CDTNotes: (Do Not Crush) Do not crush or chew. Cefazolin 2 gm, 100 mL, No Longer Route: IVPB, Active 2016 Ortho Drug form: INJ, and Q6H, Dosing Spine Weight 72.955, kg, Start date: 08/08/16 17:00:00 CDT, Duration: 6 doses or times, Stop date: 08/09/16 23:00:00 CDTNotes: Same as: Ancef Saline Flush 0.9% 10 mL, Route: No Longer IVP, Drug Form: Active 2016 Ortho INJ, Dosing and Weight 72.273, Spine kg, Q8H, Start date: 08/08/16 16:00:00 CDT, Duration: 30 day, Stop date: 09/07/16 8:00:00 CDTNotes: Same as: BD Posiflush Sterile Lidocaine 50 mg, 5 mL, No Longer Hydrochloride 10 Route: Active 2016 Ortho MG/ML Injectable INTRADERM, Drug and Solution Form: INJ, Spine Dosing Weight 72.273, kg, ONCALL, Start date: 08/08/16 15:00:00 CDT, Duration: 30 day, Stop date: 09/07/16 14:59:00 CDTNotes: (Same as: Xylocaine) Saline Flush 0.9% 10 mL, Route: No Longer IVP, Drug Form: Active 2017 Ortho INJ, Dosing and Weight 72.273, Spine kg, PRN, PRN Line Flush, Start date: 08/08/16 14:59:00 CDT, Duration: 30 day, Stop date: 09/07/16 14:58:00 CDTNotes: Same as: BD Posiflush Sterile Acetaminophen 300 1 tab, Route: No Longer MG / Codeine PO, Drug Form: Active 2017 Ortho Phosphate 30 MG TAB, Dosing and Oral Tablet Weight 72.273, Spine [Tylenol with kg, Q4H, PRN Codeine #3] Pain Score 4-6, Start date: 08/08/16 14:30:00 CDT, Duration: 30 day, Stop date: 09/07/16 14:29:00 CDTNotes: Do not exceed 4gm/day of acetaminophen. (Same as: Tylenol with Codeine # 3) tramadol 50 mg, 1 tab, No Longer hydrochloride 50 MG Route: PO, Drug Active 2016 Ortho Oral Tablet form: TAB, Q6H, and Dosing Weight Spine 72.273, kg, PRN Pain Score 1-3, Start date: 08/08/16 14:30:00 CDT, Duration: 30 day, Stop date: 09/07/16 14:29:00 CDTNotes: Not to exceed 400mg/day. (Same As: Ultram) Ondansetron 4 mg, Route: Inactive IVP, Q8H, Dosing 2016 Ortho Weight 72.273, and kg, PRN Nausea & Spine Vomiting, Start date: 08/08/16 14:30:00 CDT, Duration: 30 day, Stop date: 09/07/16 14:29:00 CDT Bisacodyl 10 mg, 1 supp, No Longer Route: CT, Drug Active 2016 Ortho form: SUPP, and Daily, Dosing Spine Weight 72.273, kg, PRN Constipation, Start date: 08/08/16 14:30:00 CDT, Duration: 30 day, Stop date: 09/07/16 14:29:00 CDTNotes: (Same As: Dulcolax, Bisco-Lax) Morphine 4 mg, 0.4 mL, No Longer Route: IVP, Drug Active 2016 Ortho form: INJ, Q4H, and Dosing Weight Spine 72.955, kg, PRN Pain Score 7-10, Start date: 08/08/16 14:30:00 CDT, Duration: 30 day, Stop date: 09/07/16 14:29:00 CDTNotes: (Same as:MORPhine Sulfate) sodium chloride 1,000 mL, Rate: No Longer 0.9% 1000 ml INJ 85 ml/hr, Infuse Active 2016 Ortho 1,000 mL over: 11.8 hr, and Route: IV, Spine Dosing Weight 72.273 kg, Total Volume: 1,000, Start date: 08/08/16 14:30:00 CDT, Duration: 30 day, Stop date: 09/07/16 14:29:00 CDT Tylenol 650 mg, 2 tab, No Longer Route: PO, Drug Active 2016 Ortho form: TAB, Q6H, and Dosing Weight Spine 72.955, kg, PRN For Temp > 100.4 F, Start date: 08/08/16 14:30:00 CDT, Duration: 30 day, Stop date: 09/07/16 14:29:00 CDTNotes: Do not exceed 4 gm/day. (Same as: Tylenol) Maalox Advanced 30 mL, Route: No Longer Regular Strength PO, Drug Form: Active 2016 Ortho SUSP SUSP, Dosing and Weight 72.955, Spine kg, QID, PRN Indigestion, Start date: 08/08/16 14:30:00 CDT, Duration: 30 day, Stop date: 09/07/16 14:29:00 CDTNotes: (aluminum hydroxide-magnes ium hyd- simethicone [phone]/5ml 30 ml ud JOON) Milk of Magnesia 30 ml, Route: No Longer PO, Drug Form: Active 2017 Ortho SUSP, Dosing and Weight 72.955, Spine kg, Daily, PRN Constipation, Start date: 08/08/16 14:30:00 CDT, Duration: 30 day, Stop date: 09/07/16 14:29:00 CDTNotes: (Same as: Milk of Magnesia, MOM) Oxycodone 5 mg, 1 tab, No Longer Hydrochloride 5 MG Route: PO, Drug Active 2016 Ortho Oral Tablet form: TAB, Q4H, and Dosing Weight Spine 72.955, kg, PRN Pain Score 7-10, Start date: 08/08/16 14:30:00 CDT, Duration: 30 day, Stop date: 09/07/16 14:29:00 CDTNotes: (Same as: Roxicodone) Vancomycin 1 gm, Route: IV, Inactive ONCE, Dosing 2016 Ortho Weight 72.273, and kg, Start date: Spine 08/08/16 12:19:00 CDT, Stop date: 08/08/16 12:19:00 CDT Flumazenil 0.2 mg, 2 mL, Inactive Route: IVP, Drug 2016 Ortho form: INJ, PRN, and Dosing Weight Spine 72.273, kg, PRN Benzodiazepine Reversal, Initial dose, Start date: 08/08/16 11:54:00 CDT, Duration: 30 day, Stop date: 09/07/16 11:53:00 CDTNotes: (Same as: Romazicon) Naloxone 0.4 mg, 1 mL, Inactive Route: IVP, Drug 2016 Ortho form: INJ, and Q2MIN, Dosing Spine Weight 72.273, kg, PRN Narcotic Reversal, Start date: 08/08/16 11:54:00 CDT, Duration: 8 doses or times, Stop date: Limited # of timesNotes: Same as Narcan Hydromorphone 0.5 mg, 0.25 mL, Inactive Route: IVP, Drug 2016 Ortho form: INJ, and Q5Min, Dosing Spine Weight 72.273, kg, PRN Pain Score 7-10, Start date: 08/08/16 11:54:00 CDT, Duration: 4 doses or times, Stop date: Limited # of timesNotes: Same as Dilaudid Meperidine 12.5 mg, 0.25 Inactive MH mL, Route: IVP, 2016 Ortho Drug form: INJ, and Q30Min, Dosing Spine Weight 72.273, kg, PRN Other -See Comment, For shivering, Start date: 08/08/16 11:54:00 CDT, Duration: 2 doses or times, Stop date: Limited # of timesNotes: (Same as: Demerol) "Use Precaution in Elderly, Seizure disorders, and Renal impairment" Ondansetron 4 mg, 2 mL, Inactive Route: IVP, Drug 2016 Ortho form: INJ, ONCE, and Dosing Weight Spine 72.273, kg, PRN Nausea & Vomiting, Start date: 08/08/16 11:54:00 CDTNotes: (Same as: Zofran) MEDICATION WASTE Product Size: 4 mg Product Wasted: ___ mg Oxycodone 5 mg, 1 tab, Inactive Route: PO, Drug 2016 Ortho form: TAB, Q4H, and Dosing Weight Spine 72.273, kg, PRN Pain Score 4-6, Start date: 08/08/16 11:54:00 CDT, Stop date: 08/08/16 22:00:00 CDTNotes: (Same as: Roxicodone) Albuterol 0.833 3 ml, Route: No Longer MG/ML / Ipratropium NEB, Drug Form: Active 2017 [facility]o [place] 0.167 MG/ML SOLN, Dosing and Inhalant Solution Weight 72.273, Spine kg, PRN, PRN Respiratory Protocol, Start date: 08/08/16 9:36:00 CDT, Duration: 30 day, Stop date: 09/07/16 9:35:00 CDTNotes: (Same as: Duoneb) Dexamethasone 10 mg, 1 mL, Inactive Route: IV, Drug 2016 Ortho form: INJ, ONCE, and Dosing Weight Spine 72.273, kg, Start date: 08/08/16 9:07:00 CDT, Stop date: 08/08/16 9:07:00 CDTNotes: MEDICATION WASTE Product Size: 10 mg Product Wasted: ___ mg Celebrex 400 mg, 2 cap, Inactive Route: PO, Drug 2017 Ortho form: CAP, ONCE, and Dosing Weight Spine 72.273, kg, Start date: 08/08/16 9:07:00 CDT, Stop date: 08/08/16 9:07:00 CDTNotes: NSAID. Please check indication. Not for seizure. (Same As: CeleBREX) Ancef 2 gm, 100 mL, Inactive Route: IVPB, 2016 Ortho Drug form: INJ, and ONCE, Dosing Spine Weight 72.273, kg, Start date: 08/08/16 9:06:00 CDT, Duration: 1 doses or times, Stop date: 08/08/16 9:06:00 CDT, Surgical Prophylaxis Only; For patients Notes: Same as: Ancef Tranexamic Acid 1,950 mg, 3 tab, Inactive Route: PO, Drug 2016 Ortho form: TAB, ONCE, and Dosing Weight Spine 72.273, kg, Start date: 08/08/16 9:06:00 CDT, Stop date: 08/08/16 9:06:00 CDTNotes: (Same as: Lysteda) Non-Formulary Zofran 4 mg, 2 mL, Inactive Route: IVP, Drug 2016 Ortho form: INJ, ONCE, and Dosing Weight Spine 72.273, kg, Start date: 08/08/16 9:06:00 CDT, Stop date: 08/08/16 9:06:00 CDTNotes: (Same as: Zofran) MEDICATION WASTE Product Size: 4 mg Product Wasted: ___ mg Lactated Ringers 1,000 mL, Rate: Inactive 1,000 mL TKO, Route: IV, 2017 Ortho Dosing Weight and 72.273 kg, Total Spine Volume: 1,000, Start date: 08/08/16 9:06:00 CDT, Duration: 30 day, Stop date: 09/07/16 9:05:00 CDT ropivacaine 100 mL, Route: Inactive InFILtration(loc 2017 Ortho al), Drug Form: and INJ, ONCALL, Spine Start date: 08/08/16 6:00:00 CDT, Duration: 1 day, Stop date: 08/09/16 5:59:00 CDTNotes: NOT FOR IV use Ropivacaine 5 mg/mL (49.25 mL) Epinephrine 1 mg/mL (0.5 mL) Clonidine 0.1 mg/mL (0.8 mL) Ketorolac 30 mg/mL (1 mL) Normal Saline 48.45 mL polymyxin B sulfate 125,000 unit, Inactive + sodium chloride Route: IRRIG, 2016 Ortho 0.9% 250 mL INJ ONCALL, Start and (for IV set) 250 mL date: 08/08/16 Spine 6:00:00 CDT, Duration: 1 doses or times, Stop date: 08/09/16 0:00:00 CDTNotes: (Same as: Polymyxin B Sulfate) vancomycin + sodium 500 mg, Route: Inactive chloride 0.9% 250 IRRIG, ONCALL, 2016 Ortho mL INJ (for IV set) Start date: and 250 mL 08/08/16 6:00:00 Spine CDT, Duration: 1 doses or times, Stop date: 08/09/16 0:00:00 CDTNotes: TIME CRITICAL MEDICATION (Same As: Vancocin) cephalexin 500 mg 500 mg=1 cap, No Longer oral capsule PO, QID, pt to Active 2016 Ortho take until DOS and per Dr. Kay Gallego., 0 Refill(s) meloxicam 7.5 mg 7.5 mg=1 tab, No Longer oral tablet PO, BID Active 2016 Ortho and Spine Physical Therapy See Active Instructions, 2016 Ortho MISC, ONCALL, and Evaluate and Spine Treat 3 times per week for 4-6 weeks, # 1 unit, 0 Refill(s), s/p left medial unicompartmental knee replacement Aspirin 81 MG 81 mg=1 tab, PO, Active Chewable Tablet BID, # 42 tab, 0 2015 Ortho Refill(s), and Pharmacy: [facility] [id number] celecoxib 200 MG 200 mg=1 cap, Active Oral Capsule PO, BID, # 28 2015 Ortho [Celebrex] cap, 0 and Refill(s), Spine Pharmacy: [facility] [id number] Dexamethasone 10 mg, 1 mL, Inactive Route: IVP, Drug 2015 Ortho form: INJ, ONCE, and Dosing Weight Spine 76.591, kg, Start date: 05/03/16 12:12:00 COMMERCIAL LOAN COLLECTION OFFICER, Stop date: 05/03/16 12:12:00 CSTNotes: MEDICATION WASTE Product Size: 10 mg Product Wasted: ___ mg POLYETHYLENE GLYCOL 17 gm, 1 pkt, Inactive 3350 Route: PO, Drug 2015 Ortho form: PWDR, and Daily, Dosing Spine Weight 76.591, kg, Start date: 05/03/16 9:00:00 COMMERCIAL LOAN COLLECTION OFFICER, Duration: 30 day, Stop date: 06/01/16 9:00:00 CSTNotes: Dissolve in 8 oz of water or juice. (Same as: Miralax) Hydrochlorothiazide 1 tab, Route: Inactive 25 MG / Losartan PO, Drug Form: 2016 Ortho Potassium 100 MG TAB, Dosing and Oral Tablet Weight 76.591, Spine kg, Daily, Start date: 05/03/16 9:00:00 COMMERCIAL LOAN COLLECTION OFFICER, Duration: 30 day, Stop date: 06/01/16 9:00:00 CSTNotes: (losartan-hydroc hlorothiazide 100-25 mg TAB) (Same as: Hyzaar) Non-formulary celecoxib 200 mg, 1 cap, No Longer Route: PO, Drug Active 2015 Ortho form: CAP, and [id number], Dosing Spine Weight 76.591, kg, Start date: 05/02/16 21:00:00 COMMERCIAL LOAN COLLECTION OFFICER, Duration: 30 day, Stop date: 06/01/16 9:00:00 CSTNotes: NSAID. Please check indication. Not for seizure. (Same As: CeleBREX) Lovenox 40 mg, 0.4 mL, No Longer Route: SUB-Q, Active 2015 Ortho Drug form: INJ, and [id number], Dosing Spine Weight 76.591, kg, Start date: 05/02/16 21:00:00 COMMERCIAL LOAN COLLECTION OFFICER, Duration: 30 day, Stop date: 05/31/16 21:00:00 CSTNotes: (Same as: Lovenox) Simvastatin 40 mg, 1 tab, No Longer Route: PO, Drug Active 2015 Ortho form: TAB, and Bedtime, Dosing Spine Weight 76.591, kg, Start date: 05/02/16 21:00:00 COMMERCIAL LOAN COLLECTION OFFICER, Duration: 30 day, Stop date: 05/31/16 21:00:00 CSTNotes: (Same as: Zocor) Symbicort 160/4.5 2 puff, Route: No Longer inhalation aerosol INHALER, Drug Active 2015 Ortho with adapter Form: AERO/A, and Dosing Weight Spine 76.591, kg, BID, Start date: 05/02/16 20:00:00 COMMERCIAL LOAN COLLECTION OFFICER, Duration: 30 day, Stop date: 06/01/16 8:00:00 CSTNotes: (Same as: Symbicort) WASTE: Aerosol - Return to Pharmacy anastrozole 1 mg, 1 tab, No Longer Route: PO, Drug Active 2015 Ortho form: TAB, and Daily, Dosing Spine Weight 76.591, kg, Start date: 05/02/16 19:00:00 COMMERCIAL LOAN COLLECTION OFFICER, Duration: 30 day, Stop date: 06/01/16 9:00:00 CSTNotes: (Same as: Arimidex) Chemotherapy agent/Handle with caution WASTE: F/P - Black; E - Yellow Tranexamic Acid 1,950 mg, 3 tab, Inactive Route: PO, Drug 2015 Ortho form: TAB, ONCE, and Dosing Weight Spine 76.591, kg, Start date: 05/02/16 18:12:00 COMMERCIAL LOAN COLLECTION OFFICER, Stop date: 05/02/16 18:12:00 CSTNotes: (Same as: Lysteda) Non-Formulary Ondansetron 4 mg, 2 mL, No Longer Route: IV, Drug Active 2015 Ortho form: INJ, Q8H, and Dosing Weight Spine 76.591, kg, PRN Nausea, Start date: 05/02/16 18:12:00 COMMERCIAL LOAN COLLECTION OFFICER, Duration: 3 doses or times, Stop date: Limited # of timesNotes: (Same as: Zofran) MEDICATION WASTE Product Size: 4 mg Product Wasted: ___ mg Docusate 100 mg, 1 cap, Inactive Route: PO, Drug 2015 Ortho form: CAP, BID, and Dosing Weight Spine 76.591, kg, Start date: 05/02/16 17:00:00 COMMERCIAL LOAN COLLECTION OFFICER, Duration: 30 day, Stop date: 06/01/16 9:00:00 CSTNotes: (Same as: Colace) (Do Not Crush) Aspirin 325 MG 325 mg, 1 tab, No Longer Enteric Coated Route: PO, Drug Active 2015 Ortho Tablet form: ECTAB, and BID, Dosing Spine Weight 76.591, kg, Start date: 05/02/16 17:00:00 COMMERCIAL LOAN COLLECTION OFFICER, Duration: 30 day, Stop date: 06/01/16 9:00:00 CSTNotes: (Do Not Crush) Do not crush or chew. ceFAZolin (SCIP) 2 gm, 100 mL, No Longer Route: IVPB, Active 2015 Ortho Drug form: INJ, and [id number], Dosing Spine Weight 76.591, kg, Start date: 05/02/16 16:00:00 COMMERCIAL LOAN COLLECTION OFFICER, Duration: 3 doses or times, Stop date: 05/03/16 4:00:00 CSTNotes: Same as: Ancef Albuterol 0.833 3 mL, Route: No Longer MG/ML / Ipratropium INHALER, Drug Active 2015 Ortho [place] 0.167 MG/ML Form: SOLN, and Inhalant Solution Dosing Weight Spine 76.591, kg, QID, PRN as needed for shortness of breath or wheezing, Start date: 05/02/16 13:00:00 COMMERCIAL LOAN COLLECTION OFFICER, Stop date: 06/01/16 8:00:00 CSTNotes: (Same as: Corrie) Ondansetron 4 mg, 2 mL, No Longer Route: IVP, Drug Active 2015 Ortho form: INJ, Q6H, and Dosing Weight Spine 76.591, kg, PRN Nausea & Vomiting, Start date: 05/02/16 12:55:00 COMMERCIAL LOAN COLLECTION OFFICER, Duration: 30 day, Stop date: 06/01/16 12:54:00 CSTNotes: (Same as: Lexifran) MEDICATION WASTE Product Size: 4 mg Product Wasted: ___ mg Acetaminophen 650 mg, 2 tab, Inactive Route: PO, Drug 2015 Ortho form: TAB, Q4H, and Dosing Weight Spine 76.591, kg, PRN Pain 1-3/Temp > 100.4 F, Start date: 05/02/16 12:55:00 COMMERCIAL LOAN COLLECTION OFFICER, Duration: 30 day, Stop date: 06/01/16 12:54:00 CSTNotes: Do not exceed 4 gm/day. (Same as: Tylenol) Insulin, Aspart, 2 unit, 0.02 mL, Inactive Human Route: SUB-Q, 2015 Ortho Drug form: SOLN, and Sliding Scale, Spine Dosing Weight 76.591, kg, PRN Blood Glucose Results, Start date: 05/02/16 12:37:00 COMMERCIAL LOAN COLLECTION OFFICER, Duration: 30 day, Stop date: 06/01/16 12:36:00 CSTNotes: Roll in palms of hands gently; Do not shake vigorously. (Same as: NovoLOG) "single patient use only" WASTE: F/P - Black; E - Municipal Trash Bin Stable for 28 days at room temperature. Expires in days from Da te Ondansetron 4 mg, 2 mL, Inactive Route: IVP, Drug 2015 Ortho form: INJ, ONCE, and Dosing Weight Spine 76.591, kg, PRN Nausea & Vomiting, Start date: 05/02/16 12:37:00 CSTNotes: (Same as: Zofran) MEDICATION WASTE Product Size: 4 mg Product Wasted: ___ mg Hydromorphone 0.5 mg, 0.25 mL, Inactive Route: IVP, Drug 2015 Ortho form: INJ, and Q5Min, Dosing Spine Weight 76.591, kg, PRN Pain Score 7-10, Start date: 05/02/16 12:37:00 COMMERCIAL LOAN COLLECTION OFFICER, Duration: 4 doses or times, Stop date: 05/02/16 18:36:00 CSTNotes: Same as Dilaudid Naloxone 0.4 mg, 1 mL, Inactive Route: IVP, Drug 2015 Ortho form: INJ, and Q2MIN, Dosing Spine Weight 76.591, kg, PRN Narcotic Reversal, Start date: 05/02/16 12:37:00 COMMERCIAL LOAN COLLECTION OFFICER, Duration: 8 doses or times, Stop date: 05/02/16 18:36:00 CSTNotes: Same as Narcan Flumazenil 0.2 mg, 2 mL, Inactive Route: IVP, Drug 2015 Ortho form: INJ, PRN, and Dosing Weight Spine 76.591, kg, PRN Benzodiazepine Reversal, Initial dose, Start date: 05/02/16 12:37:00 COMMERCIAL LOAN COLLECTION OFFICER, Duration: 6 hr, Stop date: 05/02/16 18:36:00 CSTNotes: (Same as: Romazicon) Labetalol 10 mg, 2 mL, Inactive Route: IVP, Drug 2015 Ortho form: INJ, and Q5Min, Dosing Spine Weight 76.591, kg, PRN Elevated BP, Start date: 05/02/16 12:37:00 COMMERCIAL LOAN COLLECTION OFFICER, Duration: 5 doses or times, Stop date: 05/02/16 18:36:00 COMMERCIAL LOAN COLLECTION OFFICER Morphine 2 mg, 0.2 mL, Inactive Route: IVP, Drug 2015 Ortho form: INJ, and Q5Min, Dosing Spine Weight 76.591, kg, PRN Pain Score 4-6, Start date: 05/02/16 12:37:00 COMMERCIAL LOAN COLLECTION OFFICER, Duration: 5 doses or times, Stop date: 05/02/16 18:36:00 CSTNotes: (Same as:MORPhine Sulfate) Acetaminophen 1,000 mg, 100 Inactive mL, Route: IVPB, 2015 Ortho Drug form: INJ, and ONCE, Dosing Spine Weight 76.591, kg, PRN Pain Score 1-3, Start date: 05/02/16 12:37:00 COMMERCIAL LOAN COLLECTION OFFICER, Duration: 1 doses or times, Stop date: Limited # of timesNotes: Infuse over 15 minutes Do not exceed 4gm/day of acetaminophen MEDICATION WASTE Product Size: 1000 mg Product Wasted: ___ mg Hydralazine 10 mg, 0.5 mL, Inactive Route: IVP, Drug 2015 Ortho form: INJ, and Q20Min, Dosing Spine Weight 76.591, kg, PRN Elevated BP, Start date: 05/02/16 12:37:00 COMMERCIAL LOAN COLLECTION OFFICER, Duration: 2 doses or times, Stop date: 05/02/16 18:36:00 CSTNotes: (Same as: Apresoline) Push over 5 minutes Bisacodyl 10 mg, 1 supp, No Longer Route: CT, Drug Active 2015 Ortho form: SUPP, and Daily, Dosing Spine Weight 76.591, kg, PRN Constipation, Start date: 05/02/16 12:12:00 COMMERCIAL LOAN COLLECTION OFFICER, Duration: 30 day, Stop date: 06/01/16 12:11:00 CSTNotes: (Same As: Dulcolax, Bisco-Lax) Ondansetron 4 mg, 2 mL, Inactive Route: IVP, Drug 2015 Ortho form: INJ, Q8H, and Dosing Weight Spine 76.591, kg, PRN Nausea & Vomiting, Start date: 05/02/16 12:12:00 COMMERCIAL LOAN COLLECTION OFFICER, Duration: 30 day, Stop date: 06/01/16 12:11:00 CSTNotes: (Same as: Shaun) MEDICATION WASTE Product Size: 4 mg Product Wasted: ___ mg Morphine 5 mg, 0.5 mL, No Longer Route: IVP, Drug Active 2015 Ortho form: INJ, Q4H, and Dosing Weight Spine 76.591, kg, PRN Pain Score 7-10, Start date: 05/02/16 12:12:00 COMMERCIAL LOAN COLLECTION OFFICER, Duration: 30 day, Stop date: 06/01/16 12:11:00 CSTNotes: (Same as:MORPhine Sulfate) Oxycodone 5 mg, 1 tab, No Longer Hydrochloride 5 MG Route: PO, Drug Active 2015 Ortho Oral Tablet form: TAB, Q6H, and Dosing Weight Spine 76.591, kg, PRN Pain Score 6-10, Start date: 05/02/16 12:12:00 COMMERCIAL LOAN COLLECTION OFFICER, Duration: 30 day, Stop date: 06/01/16 12:11:00 CSTNotes: (Same as: Roxicodone) Tramadol 50 mg, 1 tab, No Longer Route: PO, Drug Active 2015 Ortho form: TAB, Q6H, and Dosing Weight Spine 76.591, kg, PRN Pain Score 1-5, Start date: 05/02/16 12:12:00 COMMERCIAL LOAN COLLECTION OFFICER, Duration: 30 day, Stop date: 06/01/16 12:11:00 CSTNotes: Not to exceed 400mg/day. (Same As: Ultram) Milk of Magnesia 30 ml, Route: No Longer PO, Drug Form: Active 2016 Ortho SUSP, Dosing and Weight 76.591, Spine kg, Daily, PRN Constipation, Start date: 05/02/16 12:12:00 COMMERCIAL LOAN COLLECTION OFFICER, Duration: 30 day, Stop date: 06/01/16 12:11:00 CSTNotes: (Same as: Milk of Magnesia, MOM) Famotidine 20 mg, 1 tab, No Longer Route: PO, Drug Active 2015 Ortho form: TAB, BID, and Dosing Weight Spine 76.591, kg, PRN Indigestion, Start date: 05/02/16 12:12:00 COMMERCIAL LOAN COLLECTION OFFICER, Duration: 30 day, Stop date: 06/01/16 12:11:00 CSTNotes: (Same as: Pepcid) sodium chloride 1,000 mL, Rate: No Longer 0.9% 1000 ml INJ 85 ml/hr, Infuse Active 2016 Ortho 1,000 mL over: 11.8 hr, and Route: IV, Spine Dosing Weight 76.591 kg, Total Volume: 1,000, Start date: 05/02/16 12:12:00 COMMERCIAL LOAN COLLECTION OFFICER, Duration: 30 day, Stop date: 06/01/16 12:11:00 COMMERCIAL LOAN COLLECTION OFFICER Tylenol 650 mg, 2 tab, No Longer Route: PO, Drug Active 2015 Ortho form: TAB, Q6H, and Dosing Weight Spine 76.591, kg, PRN For Temp > 100.4 F, Start date: 05/02/16 12:12:00 COMMERCIAL LOAN COLLECTION OFFICER, Stop date: 06/01/16 12:11:00 CSTNotes: Do not exceed 4 gm/day. (Same as: Tylenol) Maalox Advanced 15 mL, Route: No Longer Regular Strength PO, Drug Form: Active 2016 Ortho SUSP SUSP, Dosing and Weight 76.591, Spine kg, QID, PRN Indigestion, Start date: 05/02/16 12:12:00 COMMERCIAL LOAN COLLECTION OFFICER, Duration: 30 day, Stop date: 06/01/16 12:11:00 CSTNotes: (aluminum hydroxide-magnes ium hyd- simethicone [id number]/5ml 30 ml ud JOON) Tranexamic Acid 1,950 mg, 3 tab, Inactive Route: PO, Drug 2015 Ortho form: TAB, ONCE, and Dosing Weight Spine 76.591, kg, Start date: 05/02/16 8:01:00 COMMERCIAL LOAN COLLECTION OFFICER, Stop date: 05/02/16 8:01:00 CSTNotes: (Same as: Lysteda) Non-Formulary Dexamethasone 10 mg, 1 mL, Inactive Route: IV, Drug 2015 Ortho form: INJ, ONCE, and Dosing Weight Spine 76.591, kg, Start date: 05/02/16 8:01:00 COMMERCIAL LOAN COLLECTION OFFICER, Stop date: 05/02/16 8:01:00 CSTNotes: MEDICATION WASTE Product Size: 10 mg Product Wasted: ___ mg Lactated Ringers 1,000 mL, Rate: No Longer 1,000 mL TKO, Route: IV, Active 2015 Ortho Dosing Weight and 76.591 kg, Total Spine Volume: 1,000, Start date: 05/02/16 8:00:00 COMMERCIAL LOAN COLLECTION OFFICER, Duration: 30 day, Stop date: 06/01/16 7:59:00 COMMERCIAL LOAN COLLECTION OFFICER Ancef 2 gm, 100 mL, Inactive Route: IVPB, 2015 Ortho Drug form: INJ, and ONCE, Dosing Spine Weight 76.591, kg, Start date: 05/02/16 8:00:00 COMMERCIAL LOAN COLLECTION OFFICER, Duration: 1 doses or times, Stop date: 05/02/16 8:00:00 COMMERCIAL LOAN COLLECTION OFFICER, Surgical Prophylaxis Only; For patients Notes: Same as Ancef Zofran 4 mg, 2 mL, Inactive Route: IVP, Drug 2015 Ortho form: INJ, ONCE, and Dosing Weight Spine 76.591, kg, Start date: 05/02/16 8:00:00 COMMERCIAL LOAN COLLECTION OFFICER, Stop date: 05/02/16 8:00:00 CSTNotes: (Same as: Zofran) MEDICATION WASTE Product Size: 4 mg Product Wasted: ___ mg Celebrex 400 mg, 2 cap, Inactive Route: PO, Drug 2015 Ortho form: CAP, ONCE, and Dosing Weight Spine 76.591, kg, Start date: 05/02/16 8:00:00 COMMERCIAL LOAN COLLECTION OFFICER, Stop date: 05/02/16 8:00:00 CSTNotes: NSAID. Please check indication. Not for seizure. (Same As: CeleBREX) ropivacaine 100 mL, Route: No Longer InFILtration(loc Active 2015 Ortho al), Drug Form: and INJ, ONCALL, Spine Start date: 05/02/16 6:00:00 COMMERCIAL LOAN COLLECTION OFFICER, Stop date: 05/02/16 14:00:00 CSTNotes: NOT FOR IV use Ropivacaine 5 mg/mL (49.25 mL) Epinephrine 1 mg/mL (0.5 mL) Clonidine 0.1 mg/mL (0.8 mL) Ketorolac 30 mg/mL (1 mL) Normal Saline 48.45 mL polymyxin B sulfate 125,000 unit, No Longer + sodium chloride Route: IRRIG, Active 2015 Ortho 0.9% INJ 250 mL Drug form: and PDR/INJ, ONCALL, Spine Start date: 05/02/16 6:00:00 COMMERCIAL LOAN COLLECTION OFFICER, Stop date: 05/02/16 15:00:00 CSTNotes: (Same as: Polymyxin B Sulfate) vancomycin + sodium 500 mg, Route: No Longer chloride 0.9% INJ IRRIG, Drug Active 2015 Ortho 250 mL form: PDR/INJ, and ONCALL, Start Spine date: 05/02/16 6:00:00 COMMERCIAL LOAN COLLECTION OFFICER, Stop date: 05/02/16 14:00:00 CSTNotes: TIME CRITICAL MEDICATION (Same As: Vancocin) Home Medication 99 mg=, PO, No Longer Daily, Refill(s) Active 2015 Ortho 0 and Spine meloxicam 7.5 mg 15 mg=2 tab, PO, No Longer oral tablet Daily, # 30 tab, Active 2015 Ortho 0 Refill(s) and Spine Vitamin D3 5000 5,000 IntlUnit=1 No Longer intl units oral tab, PO, Daily, Active 2015 Ortho tablet 0 Refill(s) and Spine aspirin 81 mg 81 mg=1 tab, PO, No Longer tablet, enteric Daily, # 90 tab, Active 2015 Ortho coated 3 Refill(s) and Spine garlic oral tablet 1 tab, PO, No Longer Daily, 0 Active 2015 Ortho Refill(s) and Spine Vitamin C 500 mg 1,000 mg=2 tab, No Longer oral tablet PO, Daily, # 30 Active 2015 Ortho tab, 0 Refill(s) and Spine multivitamin 2 tab, PO, No Longer Daily, 0 Active 2015 Ortho Refill(s) and Spine Cinnamon 500 mg 1,000 mg=2 cap, No Longer oral capsule PO, Daily, # 100 Active 2015 Ortho cap, 0 Refill(s) and Spine Calcium Carbonate 2 tab, PO, No Longer 1500 MG / Daily, # 60 tab, Active 2015 Ortho Cholecalciferol 400 0 Refill(s) and UNT Oral Tablet Spine anastrozole 1 mg 1 mg=1 tab, PO, Active oral tablet Daily, # 30 tab, 2016 Ortho 0 Refill(s) and Spine Symbicort 160/4.5 2 puff, INHALER, Active inhalation aerosol BID, # 1 ea, 3 2015 Ortho with adapter Refill(s) and Spine 200 ACTUAT 1 puff, INHALER, Active Albuterol 0.09 QID, # 14 gm, 0 2015 Ortho MG/ACTUAT / Refill(s) and Ipratropium [place] Spine 0.018 MG/ACTUAT Metered Dose Inhaler [Combivent] Hydrochlorothiazide 1 tab, PO, Active 25 MG / Losartan Daily, # 30 tab, 2016 Ortho Potassium 100 MG 0 Refill(s) and Oral Tablet Spine simvastatin 40 mg 40 mg=1 tab, PO, Active oral tablet Bedtime, # 90 2016 Ortho tab, 1 Refill(s) and Spine Allergies, Adverse Reactions, Alerts Substance Category Reaction Severity Reaction Status Date Comments Source type Reported acetaminoph Assertion nausea/vom Drug Active en-HYDROcod iting allergy Ortho one and Spine Immunizations Immunization Date Given Site Status Last Updated Comments Source Results Order Name Results Value Reference Date Interpretation Comments Source Range HEMATOLOGY Hct 29.1 % 36.0 - 09/10 Ortho 48.0 /2016 and Spine HEMATOLOGY Hgb 9.3 g/dL 12.0 - 09/10 Ortho 16.0 /2016 and Spine ELECTROLYTE AGAP 13.9 meq/L 10.0 - 09/09 Ortho S 20.0 and Spine ELECTROLYTE Calcium Lvl 9.9 mg/dL 8.5 - 10.5 09/09 Ortho S and Spine ELECTROLYTE eGFR 81 09/09 Result Comment: The eGFR is calculated using the CKD-EPI formula. In most young, healthy individuals the eGFR will be >90 mL/ min/1.73m2. The eGFR declines with age. An eGFR of 60-89 may be normal in [facility] S mL/min/1.7 /2017 some populations, particularly the elderly, for whom the CKD-EPI formula has not been extensively validated. Use of the eGFR is not recommended in the following populations: and Spine 3m2 Individuals with unstable creatinine concentrations, including patients and those with serious co-morbid conditions. Patients with extremes in muscle mass or diet. The data above are obtained from the National Kidney Disease Education Program (NKDEP) which additionally recommends that when the eGFR is used in patients with extremes of body mass index for purposes of drug dosing, the eGFR should be multiplied by the estimated BMI. ELECTROLYTE CO2 26 meq/L 24 - 32 09/09 Ortho S and Spine ELECTROLYTE BUN 14 mg/dL 7 - 22 09/09 Ortho S and Spine ELECTROLYTE Glucose Lvl 147 mg/dL 70 - 99 09/09 Ortho S and Spine ELECTROLYTE Chloride Lvl 105 meq/L 95 - 109 09/09 Ortho S and Spine ELECTROLYTE Potassium 3.9 meq/L 3.5 - 5.1 09/09 Ortho S Lvl /2016 and Spine ELECTROLYTE Creatinine 0.74 mg/dL 0.50 - 09/09 Ortho S Lvl 1.40 /2016 and Spine ELECTROLYTE Sodium Lvl 141 meq/L 135 - 145 09/09 Ortho S /2016 and Spine HEMATOLOGY Hgb 9.3 g/dL 12.0 - 09/09 Ortho 16.0 /2016 and Spine HEMATOLOGY Hct 28.8 % 36.0 - 09/09 Ortho 48.0 /2016 and Spine TOXICOLOGY Vanco Tr TND 2100 09/09 Ortho and Spine TOXICOLOGY Vanco Tr 14.1 ug/ml 09/09 Ortho /2016 and Spine Chest 1view Chest 1view EXAM: XR CHEST 1 VIEW 09/08 - [facility] /2016 - [facility] This report was dictated by a Transverse Abdominal Muscle Surgeon/Fellow. I have personally reviewed the images as well as the Resident's interpretation and agree with the findings. DATE: 09/08/2016 7:28 PM CDT Read by: Dori Guevara MD Resident: Dori Guevara MD Dictated Date/time: 09/08/16 20:57 Electronically Signed by: Moy Ly MD 09/09/16 08:02 FINAL REPORT INDICATION: Central Line Placement - Chest 1 view for central line placement COMPARISON: 08/08/2016 FINDINGS: Left PICC with tip overlying SVC. The cardiomediastinal silhouette is stable. While evaluation is limited given semi-upright positioning, no distinct pneumothorax is identified. Minimal basilar atelectasis present. IMPRESSION: 1. Stable left PICC. THIS IS A PRELIMINARY REPORT BY THE ON-CALL RESIDENT. CHANGES TO THIS PRELIMINARY REPORT MAY OCCUR IN AN ADDITIONAL PRELIMINARY OR FINALIZED VERSION.* * IMPRESSION: Left subclavian approach central line with tip in the distal superior vena cava. UT SECTION: Chest Knee 1-2 Knee 1-2 EXAM: XR LEFT KNEE 2 VIEWS 09/08 - [facility] Views Views /2016 - [facility] unilateral unilateral DX DX DATE: 09/08/2016 12:25 PM CDT Read by: Kirsten Beltre MD Dictated Date/time: 09/08/16 15:45 Electronically Signed by: Kirsten Beltre MD 09/08/16 15:49 FINAL REPORT INDICATION: Joint deformities - to be done in PACU, please include all of implant stems ADDITIONAL INFORMATION: Postoperative revision left total knee arthroplasty COMPARISON: 08/08/2016 TECHNIQUE: AP and lateral radiographs of the knee FINDINGS: There has been interim revision of a left total knee arthroplasty , with explantation of a cement spacer, placement of a longstem femoral and tibial component which project in satisfactory alig nment on both views. No perihardware fracture or complication is identified. An additional tibial tuberosity screw, proximal tibial cerclage wire are present. Lateral surgical drains present at the distal femur. IMPRESSION: Expected appearance following interim hardware revision of a left total knee arthroplasty. HEMATOLOGY aPTT 27.6 s 22.9 - 08/31 [facility] 35.8 /2017 and Spine HEMATOLOGY PROTIME 13.4 s 12.0 - 08/31 [facility] 14.7 /2017 and Spine HEMATOLOGY INR 1.00 0.85 - 08/31 Ortho 1.17 and Spine TOXICOLOGY Vanco Tr 11.0 ug/ml 08/10 [facility] TOXICOLOGY Vanco Tr TND 1100 08/10 and Spine HEMATOLOGY Hct 29.9 % 36.0 - 08/10 [facility] Ortho 48.0 and Spine HEMATOLOGY Hgb 9.8 g/dL 12.0 - 08/10 Ortho 16.0 and Spine CHEM PANEL eGFR 74 08/09 Result Comment: The eGFR is calculated using the CKD-EPI formula. In most young, healthy individuals the eGFR will be >90 mL/ min/1.73m2. The eGFR declines with age. An eGFR of 60-89 may be normal in Ortho mL/min/1. some populations, particularly the elderly, for whom the CKD-EPI formula has not been extensively validated. Use of the eGFR is not recommended in the following populations: and Spine 3m2 Individuals with unstable creatinine concentrations, including patients and those with serious co-morbid conditions. Patients with extremes in muscle mass or diet. The data above are obtained from the National Kidney Disease Education Program (NKDEP) which additionally recommends that when the eGFR is used in patients with extremes of body mass index for purposes of drug dosing, the eGFR should be multiplied by the estimated BMI. CHEM PANEL Potassium 4.4 meq/L 3.5 - 5.1 08/09 Ortho Lvl /2016 and Spine CHEM PANEL Calcium Lvl 9.9 mg/dL 8.5 - 10.5 08/09 and Spine CHEM PANEL CO2 24 meq/L 24 - 32 08/09 and Spine CHEM PANEL Chloride Lvl 106 meq/L 95 - 109 08/09 and Spine CHEM PANEL Sodium Lvl 139 meq/L 135 - 145 08/09 and Spine CHEM PANEL BUN 18 mg/dL 7 - 22 08/09 Ortho and Spine CHEM PANEL Creatinine 0.80 mg/dL 0.50 - 08/09 Ortho Lvl 1.40 /2016 and Spine CHEM PANEL Glucose Lvl 119 mg/dL 70 - 99 08/09 Ortho and Spine CHEM PANEL AGAP 13.4 meq/L 10.0 - 08/09 Ortho 20.0 and Spine HEMATOLOGY Hct 30.8 % 36.0 - 03/21 Ortho 48.0 /2016 and Spine HEMATOLOGY Hgb 10.1 g/dL 12.0 - 08/09 [facility] 16.0 /2016 and Spine Chest 1 v Chest 1 v EXAM: XR CHEST AP 1 VIEW 08/08 - [facility] for for /2016 - Wu Placement Placement DX DX DATE: 08/08/2016 1930 hours CDT Read by: Volodymyr Jeffries MD Dictated Date/time: 08/09/16 08:21 Electronically Signed by: Volodymyr Jeffries MD 08/09/16 08:24 FINAL REPORT INDICATION: Line Placement COMPARISON: None TECHNIQUE: Chest AP -- 1 View FINDINGS: Left PICC tip at mid SVC. Cardiac silhouette size is normal. Central pulmonary vascularity is within normal limits. Mediastinal and hilar contours are normal. Minimal scarring and/or subsegmental atelectasis at the left lung base noted. No airspace consolidation, pleural effusion, or pneumothorax present. Skeletal structures demonstrate no acute findings. Gallbladder has been removed. IMPRESSION: Left PICC tip at mid SVC. Minimal scarring and/or subsegmental atelectasis at the left lung base. 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 Expected postoperative soft tissue changes and a lateral drain are noted. No acute fracture seen. Diffuse osteopenia is present. There are vascular calcifications. IMPRESSION: Status post knee arthroplasty with metallic femoral component and tibial stem spacer without immediate complications. CHEM PANEL eGFR 81 07/27 Result Comment: The eGFR is calculated using the CKD-EPI formula. In most young, healthy individuals the eGFR will be >90 mL/ min/1.73m2. The eGFR declines with age. An eGFR of 60-89 may be normal in Ortho mL/min/1.7 /2017 some populations, particularly the elderly, for whom the CKD-EPI formula has not been extensively validated. Use of the eGFR is not recommended in the following populations: and Spine 3m2 Individuals with unstable creatinine concentrations, including patients and those with serious co-morbid conditions. Patients with extremes in muscle mass or diet. The data above are obtained from the National Kidney Disease Education Program (NKDEP) which additionally recommends that when the eGFR is used in patients with extremes of body mass index for purposes of drug dosing, the eGFR should be multiplied by the estimated BMI. CHEM PANEL Bili Total 0.4 mg/dL 0.2 - 1.3 / Ortho and Spine CHEM PANEL ALANINE 23 unit/L 0 - 65 / Ortho AMINOTRANSFE /2016 and Spine RASE CHEM PANEL ASPARTATE 37 unit/L 0 - 37 / Ortho TRANSAMINASE and Spine CHEM PANEL Alk Phos 110 unit/L 39 - 136 / Ortho and Spine CHEM PANEL Globulin 3.5 g/dL 2.7 - 4.2 / Ortho and Spine CHEM PANEL A/G Ratio 1.2 0.7 - 1.6 / Ortho and Spine CHEM PANEL Glucose Lvl 88 mg/dL 70 - 99 / Ortho and Spine CHEM PANEL Calcium Lvl 12.1 mg/dL 8.5 - 10.5 / Ortho and Spine CHEM PANEL B/C Ratio 26 6 - 25 / Ortho and Spine CHEM PANEL Total 7.6 g/dL 6.4 - 8.4 / Ortho Protein and Spine CHEM PANEL Albumin Lvl 4.1 g/dL 3.5 - 5.0 / Ortho and Spine CHEM PANEL Sodium Lvl 139 meq/L 135 - 145 / [facility] and Spine CHEM PANEL BUN 19 mg/dL 7 - 22 / Ortho and Spine CHEM PANEL Creatinine 0.74 mg/dL 0.50 - 03/ Ortho Lvl 1.40 /2016 and Spine CHEM PANEL AGAP 12.1 meq/L 10.0 - 03/08 [facility] 20.0 /2016 and Spine CHEM PANEL Chloride Lvl 103 meq/L 95 - 109 / Ortho and Spine CHEM PANEL Potassium 4.1 meq/L 3.5 - 5.1 /08 Ortho Lvl /2016 and Spine CHEM PANEL CO2 28 meq/L 24 - 32 / Ortho and Spine HEMATOLOGY Sed Rate 8 mm/h 0 - 20 07/27 Ortho and Spine HEMATOLOGY PROTIME 12.2 s 12.0 - /08 Ortho 14.7 /2016 and Spine HEMATOLOGY aPTT 29.5 s 22.9 - /08 Ortho 35.8 /2016 and Spine HEMATOLOGY INR 0.89 0.85 - 07/27 Ortho 1.17 /2016 and Spine HEMATOLOGY Hct 41.2 % 36.0 - /08 Ortho 48.0 /2016 and Spine HEMATOLOGY MCH 27.9 pg 27.0 - /08 Ortho 31.0 /2016 and Spine HEMATOLOGY MCHC 32.2 g/dL 32.0 - 03/08 Ortho 36.0 /2016 and Spine HEMATOLOGY MCV 86.6 fL 80.0 - 07/27 Ortho 98.0 /2016 and Spine HEMATOLOGY RBC 4.75 M/CMM 4.20 - 0308 Ortho 5.40 /2017 and Spine HEMATOLOGY Hgb 13.3 g/dL 12.0 - 0308 Ortho 16.0 /2016 and Spine HEMATOLOGY RDW 15.1 % 11.5 - 0308 Ortho 14.5 /2016 and Spine HEMATOLOGY MPV 8.0 fL 7.4 - 10.4 07/27 Ortho and Spine HEMATOLOGY Platelet 293 K/CMM 133 - 450 07/27 Ortho and Spine HEMATOLOGY WBC 7.8 K/CMM 3.7 - 10.4 07/27 Ortho and Spine HEMATOLOGY Basophils 0.7 % 0.0 - 1.0 /08 Ortho and Spine HEMATOLOGY Lymphocytes 1.4 K/CMM 1.0 - 5.5 / Ortho # /2017 and Spine HEMATOLOGY Eosinophils 1.6 % 0.0 - 4.0 /08 Ortho and Spine HEMATOLOGY Segs 70.8 % 45.0 - 03/08 Ortho 75.0 /2017 and Spine HEMATOLOGY Lymphocytes 18.3 % 20.0 - 03/08 Ortho 40.0 /2017 and Spine HEMATOLOGY Monocytes 8.6 % 2.0 - 12.0 07/27 Ortho and Spine HEMATOLOGY Basophils # 0.1 K/CMM 0.0 - 0.2 07/27 [facility] Ortho /2016 and Spine HEMATOLOGY Segs-Bands # 5.5 K/CMM 1.5 - 8.1 07/27 [facility] Ortho /2016 and Spine HEMATOLOGY Monocytes # 0.7 K/CMM 0.0 - 0.8 07/27 [facility] Ortho /2016 and Spine HEMATOLOGY Eosinophils 0.1 K/CMM 0.0 - 0.5 07/27 [facility] Ortho # /2016 and Spine IMMUNOLOGY C-REACTIVE null <=2.9 mg/L 07/27 [facility]o PROTEIN and Spine ELECTROLYTE AGAP 13.7 meq/L 10.0 - 05/03 [facility]o S 20.0 /2015 and Spine ELECTROLYTE eGFR 69 05/03 Result Comment: The eGFR is calculated using the CKD-EPI formula. In most young, healthy individuals the eGFR will be >90 mL/ min/1.73m2. The eGFR declines with age. An eGFR of 60-89 may be normal in Ortho S mL/min/1.7 /2015 some populations, particularly the elderly, for whom the CKD-EPI formula has not been extensively validated. Use of the eGFR is not recommended in the following populations: and Spine 3m2 Individuals with unstable creatinine concentrations, including patients and those with serious co-morbid conditions. Patients with extremes in muscle mass or diet. The data above are obtained from the National Kidney Disease Education Program (NKDEP) which additionally recommends that when the eGFR is used in patients with extremes of body mass index for purposes of drug dosing, the eGFR should be multiplied by the estimated BMI. ELECTROLYTE CO2 24 meq/L 24 - 32 05/03 [facility] Ortho S /2015 and Spine ELECTROLYTE Chloride Lvl 106 meq/L 95 - 109 05/03 [facility]o S /2015 and Spine ELECTROLYTE Potassium 4.7 meq/L 3.5 - 5.1 05/03 [facility]o S Lvl /2015 and Spine ELECTROLYTE BUN 17 mg/dL 7 - 22 05/03 [facility]o S /2015 and Spine ELECTROLYTE Sodium Lvl 139 meq/L 135 - 145 05/03 [facility]o S /2015 and Spine ELECTROLYTE Creatinine 0.85 mg/dL 0.50 - 05/03 [facility]o S Lvl 1.40 /2015 and Spine ELECTROLYTE Glucose Lvl 149 mg/dL 70 - 99 05/03 [facility]o S /2015 and Spine ELECTROLYTE Calcium Lvl 9.9 mg/dL 8.5 - 10.5 05/03 [facility] S /2015 and Spine HEMATOLOGY Hct 38.6 % 36.0 - 05/03 Ortho 48.0 /2016 and Spine HEMATOLOGY Hgb 12.8 g/dL 12.0 - 05/03 Ortho 16.0 and Spine ELECTROLYTE AGAP 12.0 meq/L 10.0 - 04/28 Ortho S 20.0 /2015 and Spine ELECTROLYTE B/C Ratio 26 6 - 25 04/28 Ortho S /2015 and Spine ELECTROLYTE A/G Ratio 1.3 0.7 - 1.6 04/28 Ortho S /2015 and Spine ELECTROLYTE Globulin 3.4 g/dL 2.7 - 4.2 04/28 Ortho S and Spine ELECTROLYTE eGFR 77 04/28 Result Comment: The eGFR is calculated using the CKD-EPI formula. In most young, healthy individuals the eGFR will be >90 mL/ min/1.73m2. The eGFR declines with age. An eGFR of 60-89 may be normal in [facility] S mL/min/1.7 /2016 some populations, particularly the elderly, for whom the CKD-EPI formula has not been extensively validated. Use of the eGFR is not recommended in the following populations: and Spine 3m2 Individuals with unstable creatinine concentrations, including patients and those with serious co-morbid conditions. Patients with extremes in muscle mass or diet. The data above are obtained from the National Kidney Disease Education Program (NKDEP) which additionally recommends that when the eGFR is used in patients with extremes of body mass index for purposes of drug dosing, the eGFR should be multiplied by the estimated BMI. ELECTROLYTE Chloride Lvl 102 meq/L 95 - 109 04/28 Ortho S and Spine ELECTROLYTE CO2 29 meq/L 24 - 32 04/28 Ortho S and Spine ELECTROLYTE ASPARTATE 28 unit/L 0 - 37 04/28 Ortho S TRANSAMINASE and Spine ELECTROLYTE ALANINE 50 unit/L 0 - 65 04/28 Ortho S AMINOTRANSFE /2015 and Spine RASE ELECTROLYTE Albumin Lvl 4.3 g/dL 3.5 - 5.0 04/28 Ortho S and Spine ELECTROLYTE Total 7.7 g/dL 6.4 - 8.4 04/28 Ortho S Protein and Spine ELECTROLYTE Calcium Lvl 11.0 mg/dL 8.5 - 10.5 04/28 Ortho S and Spine ELECTROLYTE Alk Phos 104 unit/L 39 - 136 04/28 Ortho S and Spine ELECTROLYTE Bili Total 0.3 mg/dL 0.2 - 1.3 04/28 Ortho S and Spine ELECTROLYTE Creatinine 0.77 mg/dL 0.50 - 04/28 [facility] Ortho S Lvl 1.40 and Spine ELECTROLYTE Potassium 4.0 meq/L 3.5 - 5.1 04/28 Ortho S Lvl /2015 and Spine ELECTROLYTE Sodium Lvl 139 meq/L 135 - 145 04/28 Ortho S and Spine ELECTROLYTE BUN 20 mg/dL 7 - 22 04/28 Ortho S and Spine ELECTROLYTE Glucose Lvl 104 mg/dL 70 - 99 04/28 Ortho and Spine HEMATOLOGY MCH 29.4 pg 27.0 - 04/28 Ortho 31.0 and Spine HEMATOLOGY RDW 14.8 % 11.5 - 04/28 Ortho 14. and Spine HEMATOLOGY Platelet 301 K/CMM 133 - 450 04/28 Ortho and Spine HEMATOLOGY MCHC 33.2 g/dL 32.0 - 04/28 Ortho 36.0 and Spine HEMATOLOGY Hgb 15.4 g/dL 12.0 - 04/28 Ortho 16.0 and Spine HEMATOLOGY RBC 5.25 M/CMM 4.20 - 04/28 Ortho 5.40 and Spine HEMATOLOGY MCV 88.5 fL 80.0 - 04/28 Ortho 98.0 /2015 and Spine HEMATOLOGY Hct 46.5 % 36.0 - 04/28 Ortho 48.0 /2015 and Spine HEMATOLOGY MPV 7.4 fL 7.4 - 10.4 04/28 [facility] and Spine HEMATOLOGY WBC 7.2 K/CMM 3.7 - 10.4 04/28 Ortho and Spine HEMATOLOGY Basophils # 0.1 K/CMM 0.0 - 0.2 04/28 [facility] and Spine HEMATOLOGY Monocytes # 0.8 K/CMM 0.0 - 0.8 04/28 [facility]o and Spine HEMATOLOGY Eosinophils 0.2 K/CMM 0.0 - 0.5 04/28 Ortho and Spine HEMATOLOGY Lymphocytes 1.7 K/CMM 1.0 - 5.5 04/28 Ortho # and Spine HEMATOLOGY Segs-Bands # 4.5 K/CMM 1.5 - 8.1 04/28 Ortho and Spine HEMATOLOGY Basophils 1.0 % 0.0 - 1.0 04/28 Ortho and Spine HEMATOLOGY Eosinophils 2.8 % 0.0 - 4.0 04/28 Ortho and Spine HEMATOLOGY Monocytes 10.9 % 2.0 - 12.0 04/28 Ortho and Spine HEMATOLOGY Lymphocytes 23.5 % 20.0 - 04/28 Ortho 40.0 /2016 and Spine HEMATOLOGY Segs 61.8 % 45.0 - 04/28 Ortho 75.0 /2016 and Spine HEMATOLOGY INR 0.87 0.85 - 04/28 Ortho 1.17 /2016 and Spine HEMATOLOGY aPTT 30.1 s 22.9 - 04/28 Ortho 35.8 /2015 and Spine HEMATOLOGY PROTIME 12.0 s 12.0 - 04/28 Ortho 14.7 /2016 and Spine URINE AND UA Sq Epi Rare /LPF Few /LPF 04/28 Ortho STOOL and Spine URINE AND UA 0.2 EU/dL 0.1 - 1.0 04/28 Ortho STOOL Urobilinogen /2015 and Spine URINE AND UA Blood Negative Negative 04/28 Ortho STOOL and Spine (04/28/16 1:20 PM) URINE AND UA Ketones Negative Negative 04/28 Ortho STOOL mg/dL mg/dL and Spine URINE AND UA Bili Negative Negative 04/28 Ortho STOOL and Spine *NA* (04/28/16 1:20 PM) URINE AND UA Leuk Est Negative Negative 04/28 Ortho STOOL and Spine (04/28/16 1:20 PM) URINE AND UA Nitrite Negative Negative 04/28 Ortho STOOL and Spine (04/28/16 1:20 PM) URINE AND UA Protein Negative Negative 04/28 Ortho STOOL mg/dL mg/dL and Spine URINE AND UA Glucose Negative Negative 04/28 Ortho STOOL mg/dL mg/dL /2015 and Spine URINE AND UA Spec Grav 1.025 <=1.030 04/28 Ortho STOOL and Spine URINE AND UA pH 6.0 5.0 - 8.0 04/28 Ortho STOOL and Spine URINE AND UA Turbidity Clear Clear 04/28 Ortho STOOL /2016 and Spine (04/28/16 1:20 PM) URINE AND UA Color Yellow Yellow 04/28 Ortho and Spine *NA* (04/28/16 1:20 PM) Vital Signs Vital Sign Value Date Comments Source Temperature Oral (F) 98.4 F 09/10/2016 [facility] and Spine Respitory Rate 18 09/10/2016 [facility] Spine Heart Rate 68 09/10/2016 [facility] Spine Systolic (mm Hg) 145 09/10/2016 [facility] and Spine Diastolic (mm Hg) 75 09/10/2016 [facility] and Spine Systolic (mm Hg) 145 09/10/2016 [facility] and Spine Diastolic (mm Hg) 74 09/10/2016 [facility] and Spine Respitory Rate 16 09/10/2016 [facility] and Spine Heart Rate 65 09/10/2016 Ortho and Spine Temperature Oral (F) 98.4 F 09/10/2016 Ortho and Spine Respitory Rate 17 09/10/2016 [facility] and Spine Heart Rate 63 09/10/2016 Ortho and Spine Temperature Oral (F) 98.1 F 09/10/2016 Ortho and Spine Systolic (mm Hg) 142 09/10/2016 [facility] and Spine Diastolic (mm Hg) 79 09/10/2016 Ortho and Spine Weight 73.091 09/08/2016 Ortho and Spine BMI Calculated 26.01 09/08/2016 Ortho and Spine Height 167.64 cm 08/30/2016 [facility] and Spine Systolic (mm Hg) 143 08/10/2016 [facility] and Spine Diastolic (mm Hg) 72 08/10/2016 [facility] and Spine Heart Rate 70 08/10/2016 [facility] and Spine Systolic (mm Hg) 139 08/10/2016 [facility] and Spine Diastolic (mm Hg) 68 08/10/2016 Ortho and Spine Respitory Rate 16 08/10/2016 Ortho and Spine Temperature Oral (F) 98.7 F 08/10/2016 [facility] and Spine Heart Rate 57 08/10/2016 Ortho and Spine Temperature Oral (F) 97.8 F 08/10/2016 [facility] and Spine Heart Rate 66 08/10/2016 Ortho and Spine Systolic (mm Hg) 139 08/10/2016 [facility] and Spine Diastolic (mm Hg) 68 08/10/2016 Ortho and Spine Respitory Rate 18 08/10/2016 Ortho and Spine Temperature Oral (F) 97.8 F 08/10/2016 Ortho and Spine Respitory Rate 18 08/10/2016 Ortho and Spine Height 168.91 cm 08/08/2016 Ortho and Spine BMI Calculated 25.33 08/08/2016 Ortho and Spine Weight 72.273 08/08/2016 Ortho and Spine Temperature Oral (F) 98.5 F 05/03/2016 Ortho and Spine Respitory Rate 18 05/03/2016 Ortho and Spine Heart Rate 64 05/03/2016 Ortho and Spine Systolic (mm Hg) 117 05/03/2016 Ortho and Spine Diastolic (mm Hg) 65 05/03/2016 Ortho and Spine Heart Rate 75 05/03/2016 Ortho and Spine Temperature Oral (F) 97.7 F 05/03/2016 Ortho and Spine Systolic (mm Hg) 131 05/03/2016 Ortho and Spine Diastolic (mm Hg) 78 05/03/2016 Ortho and Spine Respitory Rate 18 05/03/2016 Ortho and Spine Heart Rate 101 05/03/2016 Ortho and Spine Respitory Rate 18 05/03/2016 Ortho and Spine Temperature Oral (F) 97.6 F 05/03/2016 Ortho and Spine Systolic (mm Hg) 132 05/03/2016 Ortho and Spine Diastolic (mm Hg) 72 05/03/2016 Ortho and Spine Weight 76.591 05/02/2016 Ortho and Spine BMI Calculated 27.25 05/02/2016 Ortho and Spine Height 167.64 cm 04/27/2016 Ortho and Spine Encounters Location Location Encounter Encounter Reason Attending ADM DC Status Source Details Type Number For Provider Date Date Visit [facility] [id number] Sanchez 05/02 05/03 [facility] Spine [facility] [id number] Sanchez 06/11 06/11 [employer] Outpatient [facility] Orthopedic and and Spine Spine [facility] Inpatient [id number] Sanchez 08/08 08/10 [facility] Orthopedic and and Spine Spine [facility] Inpatient [id number] Sanchez 09/08 09/10 [facility] Procedures Procedure Code Date Perfomer Comments Source Incision AND [id number] 08/08/2016 [facility] and drainage Spine Revision of knee [id number] 06/11/2016 [facility] and replacement Spine Arthroplasty [id number] 05/02/2016 [facility]ine Foot joint [id number] 05/22/2013 [facility] and operations Spine Lumpectomy of [id number] 05/22/2012 [facility] and breast Spine Lumpectomy of [id number] 05/22/2012 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 Spine Rotator cuff repair [id number] 05/22/2011 [facility] Spine Cholecystectomy<sup [id number] 05/22/2008 with lysis of [facility] and >1</sup> adhesions Spine Cholecystectomy<sup [id number] 05/22/2008 with lysis of [facility] and >2</sup> adhesions Spine Suspension of [id number] 05/22/1997 [facility] and bladder Spine Knee joint [id number] 05/22/1990 [facility] and operation Spine Arthroscopy of knee [id number] 05/22/1989 [facility] Spine Hysterectomy [id number] 05/22/1974 [facility] Spine 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
--- OUTSIDE RECORDS SUMMARY | 2018-08-08 08:42 | XMS REPORT ---
:1945 [facility] Address [address] [place] [address] Dr. Coello [address] [place] [id number] Care Team Providers Name Role Phone Unavailable Unavailable Unavailable Problems This patient has no known problems. Allergies, Adverse Reactions, Alerts This patient has no known allergies or adverse reactions. Medications This patient has no known medications.
--- OUTSIDE RECORDS SUMMARY | 2018-08-08 08:43 | XMS REPORT ---
:1945 Author Organization [employer] Care Team Providers Name Role Phone Polanco Freddy Provider Role Unavailable Allergies, Adverse Reactions, Alerts Substance Reaction Event Type [place] Info Not Available Drug Allergy Problems Problem Type Condition Code Onset Dates Condition Status Assessment Left hand pain M79.642 Active Assessment Trigger ring finger of left hand M65.342 Active Medications Medication Code Code Instructions Start End Status Dosage System Date Date Calcium 500 + D [facility] 27659619080 500-125 MG-UNIT Active 1 tablet Orally Twice a day Multivitamin [facility] 8[address]96-[address]163 Active not defined [place] 3 [facility] 50[address] 120-180 MG Active 1 capsule Orally Once a day potassium NDC 0 Oral Active 1 tab Breo Ellipta [facility] [address]-77 Active not defined Losartan [facility] [address]-84 Active not Potassium-HCTZ defined Garlic [facility] 14864009750 1000 MG Orally Active as directed Cinnamon 1000mg [facility] 84623-22560 Active not defined Vitamin C [facility] 08626811155 500 MG Orally Active as directed Vitamin D-3 [facility] 68527694606 5000 UNIT Active 1 tablet Orally Once a day Aspirin 81 [facility] 97724330489 81 MG Orally Active 1 tablet Once a day Combivent [facility] [address]-13 Active not Respimat defined Simvastatin [facility] [address]-46 Active not defined Amlodipine NDC 0 Active not Besylate defined Anastrozole [facility] [address]-57 Active not defined Results No Known Results Summary Purpose [employer] Submission
--- OUTSIDE RECORDS SUMMARY | 2018-08-08 08:43 | XMS REPORT ---
:1945 Author Organization [employer] Care Team Providers Name Role Phone Polanco Freddy Provider Role Unavailable Allergies, Adverse Reactions, Alerts Substance Reaction Event Type [place] Info Not Available Drug Allergy Problems Problem Type Condition Code Onset Dates Condition Status Assessment Trigger ring finger of left hand M65.342 Active Assessment Left hand pain M79.642 Active Medications Medication Code Code Instructions Start End Status Dosage System Date Date Anastrozole [facility] [address]-48 Active not defined Simvastatin [facility] [address]-32 Active not defined Vitamin C [facility] 98539660339 500 MG Orally Active as directed Calcium 500 + D [facility] 08783650578 500-125 MG-UNIT Active 1 tablet Orally Twice a day Losartan [facility] [address]-76 Active not Potassium-HCTZ defined potassium ND 0 Oral Active 1 tab [place] 3 [facility] [address] 120-180 MG Active 1 capsule Orally Once a day Amlodipine ND 0 Active not Besylate defined Breo Ellipta [facility] [address]-40 Active not defined Cinnamon 1000mg [facility] 96[address]91 Active not defined Multivitamin [facility] 58991-[address]64 Active not defined Garlic [facility] 28267622127 1000 MG Orally Active as directed Hyzaar [facility] 83192341630 50-12.5 MG Active 1 tablet Orally Once a day Vitamin D-3 [facility] 42031321353 5000 UNIT Active 1 tablet Orally Once a day Aspirin 81 [facility] 35332380116 81 MG Orally Active 1 tablet Once a day Combivent [facility] [address]-15 Active not Respimat defined Results No Known Results Summary Purpose [employer]ClinicalWorks Submission
--- OUTSIDE RECORDS SUMMARY | 2018-08-08 08:43 | XMS REPORT ---
:1945 Author Organization [employer] Care Team Providers Name Role Phone Freddy Polanco Provider Role Unavailable Allergies, Adverse Reactions, Alerts Substance Reaction Event Type [place] Info Not Available Drug Allergy Problems Problem Type Condition Code Onset Dates Condition Status Assessment Left hand pain M79.642 Active Assessment Trigger ring finger of left hand M65.342 Active Medications Medication Code Code Instructions Start End Status Dosage System Date Date Cinnamon 1000mg [facility] [address]35-[address]19 Active not defined Anastrozole [facility] [address]-30 Active not defined potassium NDC 0 Oral Active 1 tab Calcium 500 + D [facility] 70084213417 500-125 MG-UNIT Active 1 tablet Orally Twice a day Losartan [facility] [address]-38 Active not Potassium-HCTZ defined [place] 3 [facility] [address]94 120-180 MG Active 1 capsule Orally Once a day Combivent [facility] [address]-28 Active not Respimat defined Garlic [facility] 94640842315 1000 MG Orally Active as directed Multivitamin [facility] 64247-[address]873 Active not defined Vitamin C [facility] 12180397544 500 MG Orally Active as directed Vitamin D-3 [facility] 13713308356 5000 UNIT Active 1 tablet Orally Once a day Aspirin 81 [facility] 30452036178 81 MG Orally Active 1 tablet Once a day Breo Ellipta [facility] [address]-92 Active not defined Hyzaar [facility] 99018597807 50-12.5 MG Active 1 tablet Orally Once a day Amlodipine ND 0 Active not Besylate defined Simvastatin [facility] [address]-91 Active not defined Results No Known Results Summary Purpose eClinicalWorks Submission
[2018-08-08] MEDS ORDERED: Ringers Lactate 1,000 ML IV ONE (09:01)
[2018-08-08] MEDS ORDERED: CEFAZOLIN/SWI 1gm 0 GM/0 ML SYR ONE (09:01)
[2018-08-08] MEDS ORDERED: PROPOFOL 200 MG/20 ML VIAL IV ONE ×2 (09:34→10:36)
[2018-08-08] MEDS ORDERED: LIDOCAINE 2% MPF 5 ML VIAL ONE (09:35)
[2018-08-08] MEDS ORDERED: FENTANYL CITR 100 MCG/2 ML ONE ×2 (09:35→10:36)
[2018-08-08] MEDS ORDERED: CEFAZOLIN/SWI 1gm 1 GM/10 ML SYR ONE (09:53)
[2018-08-08] MEDS ORDERED: ONDANSETRON 4 MG/2 ML VIAL ONE ×2 (10:03→11:16)
[2018-08-08] MEDS ORDERED: BUPIVACAINE 0.25% PF 10 ML VIAL ONE (10:28)
[2018-08-08] MEDS ORDERED: LIDOCAINE 1% MPF 5 ML VIAL ONE (10:36)
[2018-08-08] MEDS ORDERED: KETOROLAC 30 MG/ML INJ ONE (11:16)
--- NOTE | 2018-08-08 11:33 | P.BOP ---
Preoperative diagnosis: left hand ring finger trigger digit Postoperative diagnosis: same Primary procedure: left hand ring finger A1 vicki release Embossograph Operator: NONE,NONE Estimated blood loss: 2 cc Specimen: none Findings: see dictation Anesthesia: General Complications: None Implants: none Fluids & blood products: per anesthesia record; TT: 16 mins @ 250 mmHg Transferred to: Recovery Room Condition: Good
--- NOTE | 2018-08-08 23:02 | OP ---
Date of Procedure: 08/08/2018 Surgeon: Freddy Polanco MD Preoperative Diagnosis: Left hand ring finger trigger digit. Postoperative Diagnosis: Left hand ring finger trigger digit. Procedure Performed: Left hand ring finger A1 vicki release. Anesthesia: General LMA. Fluids: Per Anesthesia records. Estimated Blood Loss: 2 cc. Tourniquet Time: 60 minutes at 250 mmHg. Indication To Procedure: Catrachito is a 72-year-old female who presented to my clinic with signs and sym ptoms consistent with the left hand ring finger trigger digit. The patient failed conservative treat ment measures including corticosteroid injection. Her pain interfered with her activities of daily l iving. I discussed with the patient risks and benefits at length associated with operative and nonop erative treatment. She expressed understanding and elected to proceed with operative treatment as sh maximilian had failed conservative treatment measures. Description Of Procedure: After informed consent was obtained, the patient was identified in the pre operative holding area. The left hand ring finger was marked. The patient WAS then brought back to the operating room, transferred to the operating table in a supine fashion, and placed under general LMA anesthesia. The left upper extremity was then prepped and draped in usual sterile fashion. A ti me-out was initiated. The correct patient and procedure were confirmed and identified. The patient did receive her preoperative prophylactic antibiotics. The left upper extremity was then exsanguinat ed using an Esmarch and the tourniquet was inflated to 250 mmHg. Approximately, a 1 cm longitudinal incision was made centered over the ring finger A1 vicki. Dissection was then taken down to the A1 vicki using Ragnell. Using a 15 blade, the flexor tendon sheath was then incised and released. The re was synovial fluid that was expressed after the flexor tendon sheath was completely released proxi lefty as well as distally over the course of the A1 vicki. Ragnell was then used to pull the flexor tendon out the incision and there was full excursion of the tendon without any triggering. The woun d and the tendon sheath were then irrigated thoroughly with normal saline. The skin was approximated using a 5-0 Prolene. Sterile dressings were applied. Tourniquet was let down. The patient was corina kened and transferred to PACU in stable condition. Postoperative Plan: She will work on [id number] exercises. She will be nonweightbearing. She will follow up in my clinic in one week for a wound check and suture removal. FRANCI/MODL Voice ID: [id number] Report ID: [id number]
== END 2018-08-08 13:10 | disposition home or self-care (01) ==
LOC: OR 08:17
PROVIDERS: ATTEND Orthopaedic Surgery Sports Medicine
PROC: 0LN80ZZ Release Left Hand Tendon, Open Approach (ICD-10-PCS; principal; 2018-08-08 09:30)
DX: M65.342 Trigger finger, left ring finger (principal); I10 Essential (primary) hypertension; J45.909 Unspecified asthma, uncomplicated; Z79.82 Long term (current) use of aspirin; Z79.899 Other long term (current) drug therapy
CPT/HCPCS: 26055; 93005; 85025; 80048; 36415; 85610; 85730; J2704; J3010; J0690; J2405

== ENCOUNTER 2021-11-28 21:38 | Emergency (ER) | payer OTHER, MEDICARE ==
[2021-11-28 22:25] LABS: Urine Blood Trace-intact (Negative); Urine Glucose Negative (Negative); Urine Protein Negative (Negative)
[2021-11-28 22:57] LABS: Absolute Lymphocytes (CBC) 2.6 K/uL (0.7-4.9); Hematocrit 41.7 % (36.0-45.0); MCV 88.8 fL (80-100); MPV 7.5 fL (7.6-11.3); RBC Red Blood Cell Count 4.69 M/uL (3.86-4.86)
[2021-11-28] MEDS ORDERED: HYDRALAZINE HCL 20 MG/ML VIAL ONE (23:05)
[2021-11-28] MEDS ORDERED: HYDRALAZINE HCL 10 MG TABLET ONE (23:05)
[2021-11-28 23:28] LABS: Potassium 3.9 mmol/L (3.5-5.1); Troponin High Sensitivity 6.3 pg/mL (<58.9)
[2021-11-28 23:53] LABS: Urine Bacteria NONE SEEN /HPF (<20); Urine RBC <5 /HPF (NONE SEEN)
[2021-11-29] MEDS ORDERED: HYDRALAZINE HCL 20 MG/ML VIAL ONE (00:14)
--- NOTE | 2021-11-29 00:56 | ER ---
Nurse's Notes [facility] Name: Catrachito Connelly Age: 76 yrs Sex: Female : 1945 Arrival Date: 11/28/2021 Time: 21:45 Bed 8 Private MD: Diagnosis: Essential (primary) hypertension Presentation: 11/28 21:59 Chief complaint: Patient states: My blood pressure at home was over 216/95. It was high jb4 this morning, went back to normal, and now it is back up. Coronavirus screen: At this time, the client does not indicate any symptoms associated with coronavirus-19. Ebola Screen: No symptoms or risks identified at this time. Initial Sepsis Screen: Does the patient meet any 2 criteria? No. Patient's initial sepsis screen is negative. Does the patient have a suspected source of infection? No. Patient's initial sepsis screen is negative. Risk Assessment: Do you want to hurt yourself or someone else? Patient reports no desire to harm self or others. Onset of symptoms was November 28, 2021. Transition of care: patient was not received from another setting of care. 21:59 Method Of Arrival: Ambulatory jb4 21:59 Acuity: PENNY 2 jb4 Historical: - Allergies: 22:03 No Known Allergies; jb4 - PMHx: 22:03 HTN; high cholesterol; Asthma; jb4 - PSHx: 22:03 hysterectomy; Cholecystectomy; Appendectomy; jb4 - Immunization history:: Adult Immunizations up to date. - Social history:: Smoking status: Patient/guardian denies using tobacco, but has a distant history of tobacco abuse. Screenin/11 01:11 Abuse screen: Denies threats or abuse. Nutritional screening: No deficits noted. kl Tuberculosis screening: No symptoms or risk factors identified. Fall Risk None identified. Assessment: 11/28 22:34 General: Appears in no apparent distress. comfortable, Behavior is calm, cooperative, kl appropriate for age. Pain: Denies pain. Neuro: No deficits noted. Reports dizziness. Cardiovascular: Denies chest pain, nausea, Capillary refill < 3 seconds Rhythm is regular. Respiratory: No deficits noted. Airway is patent Trachea midline Respiratory effort is even, unlabored. GI: No deficits noted. No signs and/or symptoms were reported involving the gastrointestinal system. : No deficits noted. No signs and/or symptoms were reported regarding the genitourinary system. EENT: No deficits noted. No signs and/or symptoms were reported regarding the EENT system. Derm: No deficits noted. No signs and/or symptoms reported regarding the dermatologic system. Vital Signs: 21:59 BP 237 / 90; Pulse 60; Resp 16; Temp 97.3(TE); Pulse Ox 98% on R/A; Weight 74.84 kg jb4 (R); Height 5 ft. 6 in. (167.64 cm) (R); Pain 0/10; 22:35 BP 210 / 76; Pulse 51; Resp 16; Pulse Ox 99% on R/A; Pain 0/10; kl 23:27 BP 191 / 83; Pulse 50; kl 23:41 BP 187 / 76; Pulse 49; Resp 16; Pulse Ox 99% on R/A; kl 11/29 00:37 BP 175 / 69; Pulse 51; kl 11/28 21:59 Body Mass Index 26.63 (74.84 kg, 167.64 cm) jb4 ED Course: 11/28 21:45 Patient arrived in ED. bp1 22:03 Triage completed. jb4 22:03 Arm band placed on right wrist. jb4 22:16 Inserted saline lock: 20 gauge in right antecubital area, using aseptic technique. kl 22:25 Urine Microscopic Only Sent. 2 22:25 Urine Culture Sent. 2 22:34 Crystal Dash FNP-C is [facility]. kb 22:34 Andre Finley MD is Attending Physician. kb 22:40 Urine Microscopic Only Sent. 5 22:40 Urine Culture Sent. 5 22:41 Patient has correct armband on for positive identification. Placed in gown. Call light 5 in reach. Side rails up X 1. Adult w/ patient. Warm blanket given. security monitor on. Pulse ox on. NIBP on. 23:06 XRAY Chest (1 view) In Process Unspecified. EDMS 23:29 Notified Nurse Practitioner and/or Physician Training Manager of a critical lab result(s), bb Calcium of 11.9 Crystal MULLINS notified. 23:41 No apparent distress. Resting quietly. 11/29 01:12 No provider procedures requiring assistance completed. IV discontinued, intact, kl bleeding controlled, No redness/swelling at site. Pressure dressing applied. Administered Medications: 11/28 23:01 Drug: hydrALAZINE 5 mg Route: IVP; Site: right antecubital; kl 23:01 Drug: hydrALAZINE 10 mg Route: PO; kl 23:27 Follow up: Response: No adverse reaction kl : Follow up: BP 191 / 83; Pulse 50 bpm; Response: No adverse reaction; Blood pressure is kl unchanged 11/29 00:09 Drug: hydrALAZINE 5 mg Route: IVP; Site: right antecubital; Medication: 01:13 VIS not applicable for this client. kl Outcome: 00:55 Discharge ordered by . kb 01:12 Discharged to home ambulatory. kl 01:12 Condition: improved 01:12 Discharge instructions given to patient, Instructed on discharge instructions, follow up and referral plans. Demonstrated understanding of instructions, follow-up care. 01:14 Patient left the ED. Signatures: Dispatcher [employer] EDMS Crystal Dash, SLY ANTHONY-Donna Solomon RN RN kl Ballard, Brenda, RN RN bb Bryson, James, RN RN jb4 Martinez, Maria 5 Daniela, Kathy 2 Ara, Ritu [facility] Corrections: (The following items were deleted from the chart) 11/28 23:30 23:29 Notified Nurse Practitioner and/or Physician Training Manager of a critical lab bb result(s), Calcium of 11.8 Crystal MULLINS notified bb
--- NOTE | 2021-11-29 00:56 | EDPHYS ---
Physician Documentation [facility] Name: Catrachito Connelly Age: 76 yrs Sex: Female : 1945 Arrival Date: 11/28/2021 Time: 21:45 Bed 8 Private MD: MARSHALL Physician Andre Finley HPI: 11/29 00:53 This 76 yrs old Female presents to ER via Ambulatory with complaints of High Blood kb Pressure. 00:53 The patient has elevated blood pressure and discovered this at home, with a home kb device. Onset: The symptoms/episode began/occurred yesterday. Associated signs and symptoms: Pertinent positives: dizziness, Pertinent negatives: chest pain, dyspnea, headache, lightheadedness, nausea, visual changes, vomiting, weakness. Severity of symptoms: At its worst the blood pressure was moderate. The patient has experienced similar episodes in the past. The patient has not recently seen a physician. Pt reports her blood pressure started running high yesterday and hasn't come down so she came to get checked out because she didn't want to have a stroke. states she has slight dizziness, but denies headache, chest pain, palpitations, shortness of breath. States she has been on the same blood pressure medications since last year and has been taking them as prescribed, has not missed any doses. . Historical: - Allergies: 11/28 22:03 No Known Allergies; jb4 - PMHx: 22:03 HTN; high cholesterol; Asthma; jb4 - PSHx: 22:03 hysterectomy; Cholecystectomy; Appendectomy; jb4 - Immunization history:: Adult Immunizations up to date. - Social history:: Smoking status: Patient/guardian denies using tobacco, but has a distant history of tobacco abuse. ROS: 11/29 00:53 Constitutional: Negative for fever, chills, and weight loss. kb Neuro: Positive for dizziness. All other systems are negative. Exam: 00:53 Constitutional: This is a well developed, well nourished patient who is awake, alert, kb and in no acute distress. Head/Face: Normocephalic, atraumatic. Eyes: Pupils equal round and reactive to light, extra-ocular motions intact. Lids and lashes normal. Conjunctiva and sclera are non-icteric and not injected. Cornea within normal limits. Periorbital areas with no swelling, redness, or edema. ENT: Moist Mucous membranes Cardiovascular: Regular rate and rhythm with a normal S1 and S2. No gallops, murmurs, or rubs. No pulse deficits. Respiratory: Respirations even and unlabored. No increased work of breathing. Talking in full sentences Skin: Warm, dry with normal turgor. Normal color. MS/ Extremity: Pulses equal, no cyanosis. Neurovascular intact. Full, normal range of motion. Neuro: Awake and alert, GCS 15, oriented to person, place, time, and situation. Moves all extremities. Normal gait. Psych: Awake, alert, with orientation to person, place and time. Behavior, mood, and affect are within normal limits. Vital Signs: 11/28 21:59 BP 237 / 90; Pulse 60; Resp 16; Temp 97.3(TE); Pulse Ox 98% on R/A; Weight 74.84 kg jb4 (R); Height 5 ft. 6 in. (167.64 cm) (R); Pain 0/10; 22:35 BP 210 / 76; Pulse 51; Resp 16; Pulse Ox 99% on R/A; Pain 0/10; kl 23:27 BP 191 / 83; Pulse 50; kl 23:41 BP 187 / 76; Pulse 49; Resp 16; Pulse Ox 99% on R/A; kl 11/29 00:37 BP 175 / 69; Pulse 51; kl 11/28 21:59 Body Mass Index 26.63 (74.84 kg, 167.64 cm) jb4 MDM: 11/28 22:34 Patient medically screened. kb 11/29 00:52 Data reviewed: vital signs, nurses notes. Data interpreted: Pulse oximetry: on room air kb is 99 %. Interpretation: normal. Counseling: I had a detailed discussion with the patient and/or guardian regarding: the historical points, exam findings, and any diagnostic results supporting the discharge/admit diagnosis, lab results, radiology results, the need for outpatient follow up, a family practitioner, to return to the emergency department if symptoms worsen or persist or if there are any questions or concerns that arise at home. ED course: Pt states she is feeling good and ready to go home. Will call Dr Caraballo in the morning for follow up and return for any concerns. . 11/28 22:23 Order name: Urine Microscopic Only; Complete Time: 00:04 la1 11/28 22:23 Order name: Urine Culture la1 11/28 22:26 Order name: Urine Dipstick-Ancillary; Complete Time: 22:34 EDMS 11/28 22:34 Order name: Basic Metabolic Panel; Complete Time: 23:42 kb 11/28 22:34 Order name: CBC with Diff; Complete Time: 23:06 kb 11/28 22:34 Order name: Troponin HS; Complete Time: 23:42 kb 11/28 22:23 Order name: Urine Dipstick-Ancillary (obtain specimen); Complete Time: 22:25 la1 11/28 22:34 Order name: XRAY Chest (1 view) kb 11/28 22:34 Order name: EKG; Complete Time: 22:35 kb 11/28 22:34 Order name: Cardiac monitoring; Complete Time: 22:40 kb 11/28 22:34 Order name: EKG - Nurse/Tech; Complete Time: 22:40 kb 11/28 22:34 Order name: IV Saline Lock; Complete Time: 22:41 kb 11/28 22:34 Order name: Labs collected and sent; Complete Time: 22:41 kb 11/28 22:34 Order name: O2 Per Protocol; Complete Time: 22:41 kb 11/28 22:34 Order name: O2 Sat Monitoring; Complete Time: 22:41 kb Administered Medications: 11/28 23:01 Drug: hydrALAZINE 5 mg Route: IVP; Site: right antecubital; kl 23:01 Drug: hydrALAZINE 10 mg Route: PO; kl 23:27 Follow up: Response: No adverse reaction kl 23:27 Follow up: BP 191 / 83; Pulse 50 bpm; Response: No adverse reaction; Blood pressure is kl unchanged 11/29 00:09 Drug: hydrALAZINE 5 mg Route: IVP; Site: right antecubital; kl Disposition Summary: 11/29/21 00:55 Discharge Ordered Location: Home kb Condition: Stable kb Diagnosis - Essential (primary) hypertension kb Followup: kb - With: Emergency Department - When: As needed - Reason: Worsening of condition Followup: kb - With: Private Physician - When: 2 - 3 days - Reason: Recheck today's complaints, Continuance of care, Re-evaluation by your physician Discharge Instructions: - Discharge Summary Sheet kb - Hypertension, Adult, [id number] kb Forms: - Medication Reconciliation Form kb - Thank You Letter kb - Antibiotic Education kb - Prescription Opioid Use kb Signatures: Dispatcher [employer] EDCrystal Camacho, DIGITAL CONTROLS TECHNICAL OFFICER-C DIGITAL CONTROLS TECHNICAL OFFICER-Ckb Donna Woods, RN RN apple GuerrerofrankJaxson, DIGITAL CONTROLS TECHNICAL OFFICER-C DIGITAL CONTROLS TECHNICAL OFFICER-Cla1 Simone Siu RN RN jb4 Corrections: (The following items were deleted from the chart) 00:56 00:53 Pt reports her blood pressure started running high yesterday and hasn't come down kb so she came to get checked out because she didn't want to have a stroke. states she has slight dizziness, but denies headache, chest pain, palpitations, shortness of breath. kb
[2021-11-29 02:31] VITALS: O2SAT 99
[2021-11-29 02:36] VITALS: BP 175/69
[2021-11-29 02:50] VITALS: TEMP 97.3
--- NOTE | 2021-11-29 13:46 | EKG ---
Test Date: 2021-11-28 Test Time: 23:08:43 Senior Analyst: VENITA MEASUREMENT RESULTS: Intervals: Rate: 55 SD: 186 QRSD: 90 QT: 446 QTc: 426 [place]: P: 61 SD: 186 QRS: -3 T: 61 INTERPRETIVE STATEMENTS: Sinus bradycardia Septal infarct, age undetermined Abnormal ECG Compared to ECG 08/02/2018 12:01:06 Myocardial infarct finding now present Sinus rhythm no longer present Ventricular premature complex(es) no longer present Electronically Signed On 11-29-21 13:45:03 CDT by Nura Betancourt
--- NOTE | 2021-11-29 16:16 | RAD REPORT ---
EXAM DESCRIPTION: Chest Single View 11/28/2021 11:41 PM CDT CLINICAL HISTORY: 76 years, Female, CHEST PAIN COMPARISON: None. FINDINGS: Single view of the chest was obtained portable. No prior films are available for compariso n. The cardiomediastinal silhouette demonstrate to be unremarkable. The heart is not enlarged. The thoracic aorta is unremarkable. Costophrenic angles are sharp. No areas of consolidation or masses are seen. The rest of the soft tissue and bony structures demonstrate to be unremarkable. IMPRESSION: NO ACUTE CARDIOPULMONARY DISEASE SEEN. Electronically signed by: Kei Patricio MD 11/28/2021 11:42 PM CDT Due to temporary technical issues with the PACS/Fluency reporting system, reports are being signed by the in house radiologists without review as a courtesy to insure prompt reporting. The interpreting radiologist is fully responsible for the content of the report.
== END 2021-11-29 01:14 | disposition home or self-care (01) ==
LOC: ER 21:38
DX: I10 Essential (primary) hypertension (principal)
CPT/HCPCS: 93005; 87088; 85025; 87086; 80048; 36415; 84484; 71045; 96374; 99284; J0360 ×2; 81003; 81015

== ENCOUNTER 2022-05-23 09:29 | Emergency (ER) | payer OTHER, MEDICARE ==
--- OUTSIDE RECORDS SUMMARY | 2022-05-23 09:36 | XMS REPORT | Continuity of Care Document ---
:1945 Author Organization [facility] t Address [address] [place] [address] Care Team Providers Name Role Phone JOSE, RALPH Primary Care Physician Unavailable Sourav Gomez Attending Clinician Unavailable ANDREIA PALAFOX Attending Clinician Unavailable Andreia Palafox MD Attending Clinician Doctor Unassigned, [place] Attending Clinician Unavailable Yelena Willard MD Attending Clinician MAYKEL CASON M.D. 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 00 l No known No known Disease Unive rs active active ity of problems problems [facility] [id number] SI joint Problem Active Comm on arthritis Spirit - [facility] Age Age Problem Active Common related related Spirit osteoporos osteoporos - [facility] is is [facility] Essential Essential Problem Active Com mon hypertensi hypertensi Sp uyen on on - [facility] [id number] Piriformis Problem Active Co mmon syndrome Spirit of right - [facility] side [facility] [id number] Primary Problem Active Comm on osteoarthr Spirit itis of [facility] right knee [facility] Chronic Chronic Problem Active Common obstructiv obstructiv Sp uyen e e - [facility] pulmonary [facility] Malignant Malignant Problem Active Com mon neoplasm neoplasm Spirit of [place] of [facility] part of portion of female right [facility] breast breast [facility] History of History of Problem Resolve [facility] malignant malignant HL7.CCDAR2 d Physici neoplasm neoplasm ans of breast of breast Knee pain, Knee pain, Problem Active U T left left HL7.CCDAR2 Physic i anterior anterior ans Hypertensi Hypertensi Problem Active U T on on HL7.CCDAR2 Physic i ans Osteoarthr Osteoarthr Problem Active U T osis, osis, HL7.CCDAR2 Physic i localized, localized, an s primary, primary, knee, left knee, left Chronic Chronic Problem Active [facility] pain of pain of HL7.CCDAR2 Phys ici left knee left knee ans 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 seroma arpit seroma HL7.CCDAR2 Physici of of ans musculoske musculoske letal letal structure structure after after musculoske musculoske letal letal procedure procedure Abscess of Abscess of Problem Active U T left knee left knee HL7.CCDAR2 Physici ans Infection Infection Problem Active [facility] of of HL7.CCDAR2 Physic i 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, joint, sequela sequela Aftercare Aftercare Problem Active [facility] following following HL7.CCDAR2 Physici left knee left knee ans joint joint replacemen replacemen t surgery t surgery S/P S/P Problem Active [facility] revision revision HL7.CCDAR2 Ph ysici of total of total ans knee, left knee, left Allergies, Adverse Reactions, Alerts Allergy Allergy Status Severity Reaction(s) Onset Inactive Treating Comm ents Source Name Type Date Date Clinician Hydrocod Propensi Active Hives Method i one-Acet ty to 06-11 st aminophe adverse 00:00: Hospita n reaction 00 l s to drug 67 Drug Active Unknown Common allergy Spirit - [facility] lisinopr lisinopr Active Unknown Commo n il il [facility] amiodaro amiodaro Active Unknown Commo n ne ne [facility] NO KNOWN Drug Active Univers ALLERGIE Class ity of S [facility] Family History Family Member Diagnosis Comments Start Date Stop Date Source Mother Family history of [facility] malignant neoplasm Father Family history of [facility] cardiac disorder Father Family history of [facility] malignant neoplasm Natural mother Cancer [facility] Social History Social Habit Start Date Stop Date Quantity Comments Source History of Tobacco Common Spirit - Use [facility] Exposure to 2022-03-19 2022-03-29 Not sure University of SARS-CoV-2 (event) 00:00:00 13:09:00 [facility] Alcohol intake 2021-10-20 2021-10-20 Current [facility] 00:00:00 00:00:00 non-drinker of Hospital alcohol (finding) Cigarette 2018-04-30 2018-04-30 [facility] pack-years 00:00:00 00:00:00 Hospital Tobacco use and 2018-04-30 2018-04-30 Smokeless [facility] exposure 00:00:00 00:00:00 tobacco non-user Hospital Cigarettes smoked 2018-04-30 2018-04-[address] current (pack per 00:00:00 00:00:00 Hospita l ) - Reported Sex Ass[birth year] At [birth year] [facility] 00:00:00 00:00:00 Hospital Smoking Status Start Date Stop Date Source Never smoker [facility] Former Smoker 2021-12-28 00:00:00 2021-12-28 00:00:00 Common S pirit [facility] Medications Ordered Filled Start Stop Current Ordering Indication Dosage Frequency Signature Comments Components Source Medication Medication Date Date Medication? Clinician (SIG) Name Name Hyalgan 20 Hyalgan 20 0 No 20mg C ommon mg mg 12-27 Spirit 00:00: - [facility] Hyalgan 20 Hyalgan 20 0 No 20mg C ommon mg mg 12-20 Spirit 00:00: - [facility] Hyalgan 20 Hyalgan 20 2021-0 No 20mg C ommon mg mg 12-20 Spirit 00:00: - [facility] Kenalog Kenalog No 40mg Common (Triamcinol (Triamcinol 7-25 S pirit one) one) 00:00: - [facility] 00 [facility] Hyalgan 20 Hyalgan 20 0 No 20mg C ommon mg mg 7-25 Spirit 00:00: - [facility] Bupivicaine Bupivicaine 0 No 2.5mg Common [place] 7-25 Spirit 00:00: - [facility] Bupivicaine Bupivicaine 0 No 2.5mg Common [place] 7-25 Spirit 00:00: - [facility] Kenalog Kenalog No 40mg Common (Triamcinol (Triamcinol 7-25 S pirit one) one) 00:00: - [facility] 00 [facility] Hyalgan 20 Hyalgan 20 0 No 20mg C ommon mg mg 7-25 Spirit 00:00: - [facility] Bupivicaine Bupivicaine 0 No 2.5mg Common [place] 7-25 Spirit 00:00: - [facility] Kenalog Kenalog 0 No 40mg Common (Triamcinol (Triamcinol 7-25 S pirit one) one) 00:00: - [facility] Hyalgan 20 Hyalgan 20 0 No 20mg C ommon mg mg 7-25 Spirit 00:00: - [facility] losartan 0 Yes 100mg QD Take 100 Meth meenu (COZAAR) 6-[address] 100 MG 10:12: mouth Hospita tablet 16 daily. l hydroCHLORO 0 Yes 25mg QD Take 25 mg Methodi thiazide 6-[address] (HYDRODIURI 10:12: daily. Hosp tolu L) 25 MG 16 l tablet aspirin 0 Yes 81mg QD Take 81 mg Meth meenu (ECOTRIN) 6-[address] 81 MG 10:12: daily. Hospita enteric 16 l coated tablet calcium Yes Take by Methodi carbonate/v [address] itamin D3 10:12: Hospita (CALCIUM 16 l 600 + D,3, ORAL) ascorbic 0 Yes 500mg QD Take 500 Meth meenu acid, 6-[address] vitamin C, 10:12: mouth Hospit a (VITAMIN C) 16 daily. l 500 MG tablet potassium Yes Take by Metho di 99 mg 6-[address] tablet 10:12: Hospita 16 l omega-3/dha Yes Take by Met hodi /epa/dpa/fi 6-[address] sh oil 10:12: Hospita (OMEGA-3 16 l 2100 ORAL) therapeutic 0 Yes 1{tbl} QD Take 1 Me thodi multivitami 6-[address] n 10:12: mouth Hospita (THERAGRAN) 16 daily. l tablet garlic Yes Take by Methodi 1,000 mg 6-[address] capsule 10:12: Hospita 16 l cinnamon 0 Yes 500mg QD Take 500 Meth meenu bark 500 mg 6-[address] capsule 10:12: mouth Hospita 16 daily. l Bupivicaine Bupivicaine 0 No 2.5mg Common [place] 4-18 Spirit 00:00: - [facility] Kenalog Kenalog 0 No 40mg Common (Triamcinol (Triamcinol 4-18 S pirit one) one) 00:00: - [facility]I 00 [facility] Bupivicaine Bupivicaine 2021-0 No 2.5mg Common [place] 4-18 Spirit 00:00: - [facility] Kenalog Kenalog 2021-0 No 40mg Common (Triamcinol (Triamcinol 4-18 S pirit one) one) 00:00: - CHI 00 [facility] Bupivicaine Bupivicaine 2021-0 No 2.5mg Common [place] 4-18 Spirit 00:00: - [facility] Kenalog Kenalog 2021-0 No 40mg Common (Triamcinol (Triamcinol 4-18 S pirit one) one) 00:00: - [facility] Bupivicaine Bupivicaine 2021-0 No 2.5mg Common [place] 4-18 Spirit 00:00: - CHI 00 [facility] Debi Ugaldealog No 40mg Common (Triamcinol (Triamcinol 4-18 S pirit one) one) 00:00: - CHI 00 [facility] Bupivicaine Bupivicaine No 2.5mg Common [place] 1-27 Spirit 00:00: - [facility] Debi Kenalog No 40mg Common (Triamcinol (Triamcinol 1-27 S pirit one) one) 00:00: - CHI 00 [facility] Bupivicaine Bupivicaine 0 No 2.5mg Common [place] 1-27 Spirit 00:00: - [facility] Debi Carrera No 40mg Common (Triamcinol (Triamcinol 1-27 S pirit one) one) 00:00: - [facility]I 00 [facility] Bupivicaine Bupivicaine 0 No 2.5mg Common [place] 1-27 Spirit 00:00: - [facility]I 00 [facility] Debi Ugaldealog No 40mg Common (Triamcinol (Triamcinol 1-27 S pirit one) one) 00:00: - CHI 00 [facility] Bupivicaine Bupivicaine 0 No 2.5mg Common [place] 1-27 Spirit 00:00: - [facility] Debi Ugaldealog No 40mg Common (Triamcinol (Triamcinol 1-27 S pirit one) one) 00:00: - [facility]I 00 [facility] fluticasone 2020-05- No QD Inhale 1 M ethodi furoate-eve 201 03-02 inhalation s t anteroL 00:00: 05:59 s once Hospita (Breo 00 :00 daily for l Ellipta) 90 days. 100-25 mcg/dose blister with device powder for inhalation BREO Yes USE 1 Methodi ELLIPTA 8-[address] 200-25 00:00: ONCE DAILY Hospi ta mcg/dose 00 l blister with device powder for inhalation hydrocortis Yes [id number] Apply to Univers one 2.5 % 3-11 affected ity of cream 00:00: area(s) 2 [place] 00 (two) Medical times Branch daily. ketoconazol 2019-0 Yes [id number] Apply to Univers e 2 % cream 3-11 area(s) 2 ity of 00:00: (two) [place] 00 times Medical daily. Branch hydrocortis 2019-0 Yes [id number] Apply to Univers one 2.5 % 3-11 affected ity of cream 00:00: area(s) 2 [place] 00 (two) Medical times Branch daily. ketoconazol 2019-0 Yes [id number] Apply to Univers e 2 % cream 3-11 area(s) 2 ity of 00:00: (two) [place] 00 times Medical daily. Branch hydrocortis 2019-0 Yes [id number] Apply to Univers one 2.5 % 3-11 affected ity of cream 00:00: area(s) 2 [place] 00 (two) Medical times Branch daily. ketoconazol 2019-0 Yes [id number] Apply to Univers e 2 % cream 3-11 area(s) 2 ity of 00:00: (two) [place] 00 times Medical daily. Branch hydrocortis 2018-0 Yes [id number] Apply to Univers one 2.5 % 3-11 affected ity of cream 00:00: area(s) 2 [place] 00 (two) Medical times Branch daily. ketoconazol 2019-0 Yes [id number] Apply to Univers e 2 % cream 3-11 area(s) 2 ity of 00:00: (two) [place] 00 times Medical daily. Branch hydrocortis 2019-0 Yes [id number] Apply to Univers one 2.5 % 3-11 affected ity of cream 00:00: area(s) 2 [place] 00 (two) Medical times Branch daily. ketoconazol 2019-0 Yes [id number] Apply to Univers e 2 % cream 3-11 area(s) 2 ity of 00:00: (two) [place] 00 times Medical daily. Branch LIDOCAINE LIDOCAINE 2019-0 No .5mL Com mon HCL 10MG/ML HCL 10MG/ML 08 S pirit 00:00: - CHI 00 [facility] Betamethaso Betamethaso 2019-0 No .5mL Common ne Sodium ne Sodium 08 Spiri t Phosphate Phosphate 00:00: - C HI 00 [facility] LIDOCAINE LIDOCAINE 2019-0 No .5mL Com mon HCL 10MG/ML HCL 10MG/ML 1-08 S pirit 00:00: - CHI 00 [facility] Betamethaso Betamethaso 2019-0 No .5mL Common ne Sodium ne Sodium 1-08 Spiri t Phosphate Phosphate 00:00: - C HI [facility] LIDOCAINE LIDOCAINE 2019-0 No .5mL Com mon HCL 10MG/ML HCL 10MG/ML 1-08 S pirit 00:00: - [facility] Betamethaso Betamethaso 2019-0 No .5mL Common ne Sodium ne Sodium 1-08 Spiri t Phosphate Phosphate 00:00: - C HI [facility] LIDOCAINE LIDOCAINE 2019-0 No .5mL Com mon HCL 10MG/ML HCL 10MG/ML 1-08 S pirit 00:00: - [facility] Betamethaso Betamethaso 2019-0 No .5mL Common ne Sodium ne Sodium 1-08 Spiri t Phosphate Phosphate 00:00: - C HI [facility] Potassium Yes Take by Unive rs (POTASSIUM- 5-02 mouth. ity of 99) 99 mg 10:17: [place] Tab 15 Medical Branch Potassium Yes Take by Unive rs (POTASSIUM- 5-02 mouth. ity of 99) 99 mg 10:17: [place] Tab 15 Medical Branch Potassium Yes Take by Unive rs (POTASSIUM- 5-02 mouth. ity of 99) 99 mg 10:17: [place] Tab 15 Medical Branch Potassium Yes Take by Unive rs (POTASSIUM- 5-02 mouth. ity of 99) 99 mg 10:17: [place] Tab 15 Medical Branch Potassium Yes Take by Unive rs (POTASSIUM- 5-02 mouth. ity of 99) 99 mg 10:17: [place] Tab 15 Medical Branch CINNAMON Yes Take by Univer s BARK 5-02 mouth. ity of (CINNAMON 10:16: [place] ORAL) 55 Medical Branch MULTIVITAMI Yes Take by Uni vers N ORAL 5-02 mouth. ity of 10:16: [place] [address] Medical Branch ascorbic 0 Yes 500mg Take 500 Univ ers acid 5-02 mg by ity of (VITAMIN C) 10:16: mouth 2 Mata as 500 mg 55 (two) Medical tablet times Branch daily. Aspirin 2018-0 Yes Take by Univers (ASPERDRINK 5-02 mouth. ity of ) 81 mg 10:16: [address] FLAXSEED 2018-0 Yes Take by Univer s OIL (OMEGA 5-02 mouth. ity of 3 ORAL) 10:16: [address] CINNAMON 0 Yes Take by Univer s BARK 5-02 mouth. ity of (CINNAMON 10:16: [place] ORAL) Medical Branch MULTIVITAMI Yes Take by Uni vers N ORAL 5-02 mouth. ity of 10:16: [address] ascorbic Yes 500mg Take 500 Univ ers acid 5-02 mg by ity of (VITAMIN C) 10:16: mouth 2 Mata as 500 mg 55 (two) Medical tablet times Branch daily. Aspirin 2018-0 Yes Take by Univers (ASPERDRINK 5-02 mouth. ity of ) 81 mg 10:16: [address] FLAXSEED Yes Take by Univer s OIL (OMEGA 5-02 mouth. ity of 3 ORAL) 10:16: [address] CINNAMON Yes Take by Univer s BARK 5-02 mouth. ity of (CINNAMON 10:16: [place] ORAL) [address] [place] [address] MULTIVITAMI Yes Take by Uni vers N ORAL 5-02 mouth. ity of 10:16: [address] ascorbic Yes 500mg Take 500 Univ ers acid 5-02 mg by ity of (VITAMIN C) 10:16: mouth 2 Mata as 500 mg 55 (two) Medical tablet times Branch daily. Aspirin 2018-0 Yes Take by Univers (ASPERDRINK 5-02 mouth. ity of ) 81 mg 10:16: [address] FLAXSEED Yes Take by Univer s OIL (OMEGA 5-02 mouth. ity of 3 ORAL) 10:16: [address] CINNAMON 0 Yes Take by Univer s BARK 5-02 mouth. ity of (CINNAMON 10:16: [place] ORAL) Medical Branch MULTIVITAMI Yes Take by Uni vers N ORAL 5-02 mouth. ity of 10:16: [address] ascorbic [address] Yes 500mg Take 500 Univ ers acid 5-02 mg by ity of (VITAMIN C) 10:16: mouth 2 Mata as 500 mg 55 (two) Medical tablet times Branch daily. Aspirin 2018-0 Yes Take by Univers (ASPERDRINK 5-02 mouth. ity of ) 81 mg 10:16: [address] FLAXSEED 0 Yes Take by Univer s OIL (OMEGA 5-02 mouth. ity of 3 ORAL) 10:16: [address] CINNAMON 0 Yes Take by Univer s BARK 5-02 mouth. ity of (CINNAMON 10:16: [facility]) [address] [place] [address] MULTIVITAMI Yes Take by Uni vers N ORAL 5-02 mouth. ity of 10:16: [address] ascorbic Yes 500mg Take 500 Univ ers acid 5-02 mg by ity of (VITAMIN C) 10:16: mouth 2 Mata as 500 mg 55 (two) Medical tablet times [place] daily. Aspirin 2018-0 Yes Take by Univers (ASPERDRINK 5-02 mouth. ity of ) 81 mg 10:16: [address] FLAXSEED Yes Take by Univer s OIL (OMEGA 5-02 mouth. ity of 3 ORAL) 10:16: [address] anastrozole Yes 1mg Take 1 mg U nivers (ARIMIDEX) 5-02 by mouth ity o f 1 mg tablet 10:14: daily. [address] anastrozole 2018 Yes 1mg Take 1 mg U nivers (ARIMIDEX) 5-02 by mouth ity o f 1 mg tablet 10:14: daily. [address] anastrozole 2018 Yes 1mg Take 1 mg U nivers (ARIMIDEX) 5-02 by mouth ity o f 1 mg tablet 10:14: daily. [address] anastrozole 2018-0 Yes 1mg Take 1 mg U nivers (ARIMIDEX) 5-02 by mouth ity o f 1 mg tablet 10:14: daily. [address] anastrozole 0 Yes 1mg Take 1 mg U nivers (ARIMIDEX) 5-02 by mouth ity o f 1 mg tablet 10:14: daily. [address] SYMBICORT Yes INL 2 PFS Uni vers 160-4.5 2-14 PO BID ity of mcg/actuati 00:00: [place] on inhaler 00 [facility] Branch SYMBICORT Yes INL 2 PFS Uni vers 160-4.5 2-14 PO BID ity of mcg/actuati 00:00: [place] on inhaler [facility] SYMBICORT Yes INL 2 PFS Uni vers 160-4.5 2-14 PO BID ity of mcg/actuati 00:00: [place] on inhaler [facility] Branch SYMBICORT Yes INL 2 PFS Uni vers 160-4.5 2-14 PO BID ity of mcg/actuati 00:00: [place] on inhaler [facility] Branch SYMBICORT Yes INL 2 PFS Uni vers 160-4.5 2-14 PO BID ity of mcg/actuati 00:00: [place] on inhaler 00 [facility] Branch Amoxicillin Amoxicillin 2016-05 Yes MAYKEL TAKE 4 [place] 500 MG Oral 500 MG Oral 1-17 P[facility] TABLETS Physici Tablet Tablet 00:00: M.D. DIRECTED ans 00 NAPROXEN 2016-05 Yes Take by Univer s SODIUM 0-23 mouth. ity of (ALEVE 09:01: [place] ORAL) 48 [facility] Branch NAPROXEN 2016-05 Yes Take by Univer s SODIUM 0-23 mouth. ity of (ALEVE 09:01: [place] ORAL) 48 [facility] Branch NAPROXEN 2016-05 Yes Take by Univer s SODIUM 0-23 mouth. ity of (ALEVE 09:01: [place] ORAL) 48 [facility] NAPROXEN 2016-05 Yes Take by Univer s SODIUM 0-23 mouth. ity of (ALEVE 09:01: [place] ORAL) 48 [facility] Branch NAPROXEN 2016-05 Yes Take by Univer s SODIUM 0-23 mouth. ity of (ALEVE 09:01: [place] ORAL) 48 [facility] Branch amLODIPine Yes Methodi (NORVASC) 2-27 st 10 mg 00:00: Hospita tablet 00 l simvastatin Yes Method i (ZOCOR) 40 2-12 st MG tablet 00:00: Hospita 00 l losartan-hy Yes Method i drochloroth 2-01 st iazide 00:00: Hospita (HYZAAR) 00 l 100-25 mg per tablet Amoxicillin Amoxicillin Yes MAYKEL TAKE 4 [place] 500 MG Oral 500 MG Oral 1-17 [facility] TABLETS Physici Tablet Tablet 00:00: M.D. DIRECTED ans 00 COMBIVENT Yes Methodi RESPIMAT 1-11 st 20-100 00:00: Hospita mcg/actuati 00 l on mist inhaler anastrozole 2015-05 Yes 1mg Take 1 mg M ethodi (ARIMIDEX) 2-[address] 1 mg chemo 00:00: Hospita tablet 00 l losartan-hy Yes Univer s drochloroth 8-22 ity of iazide 00:00: [place] (HYZAAR) 00 Medical 100-25 mg Branch per tablet simvastatin Yes Univer s (ZOCOR) 40 8-22 ity of mg tablet 00:00: [place] 00 Medical Branch losartan-hy Yes Univer s drochloroth 8-22 ity of iazide 00:00: [place] (HYZAAR) Medical 100-25 mg Branch per tablet simvastatin Yes Univer s (ZOCOR) 40 8-22 ity of mg tablet 00:00: [place] 00 Medical Branch losartan-hy Yes Univer s drochloroth 8-22 ity of iazide 00:00: [place] (HYZAAR) 00 Medical 100-25 mg Branch per tablet simvastatin Yes Univer s (ZOCOR) 40 8-22 ity of mg tablet 00:00: [place] 00 Medical Branch losartan-hy Yes Univer s drochloroth 8-22 ity of iazide 00:00: [place] (HYZAAR) 00 Medical 100-25 mg Branch per tablet simvastatin Yes Univer s (ZOCOR) 40 8-22 ity of mg tablet 00:00: [place] 00 Medical Branch losartan-hy Yes Univer s drochloroth 8-22 ity of iazide 00:00: [place] (HYZAAR) 00 Medical 100-25 mg Branch per tablet simvastatin Yes Univer s (ZOCOR) 40 8-22 ity of mg tablet 00:00: [place] 00 Medical Branch COMBIVENT Yes Univers RESPIMAT 6-03 ity of 20-100 00:00: [place] mcg/actuati 00 Medical on inhaler Branch COMBIVENT Yes Univers RESPIMAT 6 ity of 20-100 00:00: [place] mcg/actuati Medical on inhaler Branch COMBIVENT Yes Univers RESPIMAT 10-22 ity of 20-100 00:00: [place] mcg/actuati Medical on inhaler Branch COMBIVENT Yes Univers RESPIMAT 10-22 ity of 20- 00:00: [place] mcg/actuati Medical on inhaler Branch COMBIVENT Yes Univers RESPIMAT 10-22 ity of 20-100 00:00: [place] mcg/actuati Medical on inhaler Branch Calcium 500 Calcium 500 Yes Freddy 1 tablet Common + [facility] + [facility] Multivitami Yes Freddy not Common n n Polanco defined [facility] [place] 3 [place] 3 Yes Freddy 1 capsule C [facility] potassium potassium Yes Freddy 1 tab C [facility] Breo Breo Yes Freddy not Common Ellipta Ellipta Polanco defined [facility] Losartan Losartan Yes Freddy not Comm on Potassium-H Potassium-H Polanco defined [facility] Garlic Garlic Yes Freddy as Common Polanco directed [facility] Cinnamon Cinnamon Yes Freddy not Comm on 1000mg 1000mg Polanco [facility] Vitamin C Vitamin C Yes Freddy as Co mmon Polanco directed [facility] Vitamin D-3 Vitamin D-3 Yes Freddy 1 tablet Common Polanco [facility] Aspirin 81 Aspirin 81 Yes Freddy 1 tablet Common Polanco [facility] Combivent Combivent Yes Freddy not Co mmon Respimat Respimat Polanco defined Spir [facility] Simvastatin Simvastatin Yes Freddy not Common Polanco defined [facility] Amlodipine Amlodipine Yes Freddy not Common Besylate Besylate Polanco defined Spir [facility] Anastrozole Anastrozole Yes Freddy not Common Polanco defined [facility] Hyzacalvin Olmoszaar Yes Freddy 1 tablet Comm on Polanco [facility] Tylenol # 3 Tylenol # 3 Yes Freddy one tab Common Polanco [facility] Anastrozole Anastrozole No Anastrozol e Amoxicillin Amoxicillin No Amoxicilli -Pot -Pot n-Pot Clavulanate Clavulanate Clavulanat e potassium potassium No potassium Simvastatin Simvastatin No Simvastati n Spironolact Spironolact No Spironolac one one tone Irbesartan- Irbesartan- No Irbesartan hydroCHLORO hydroCHLORO -hydroCHLO thiazide thiazide ROthiazide Vitamin C Vitamin C No Vitamin C 500 MG 500 MG 500 MG Cinnamon Cinnamon No Cinnamon 1000mg 1000mg 1000mg Aspirin 81 Aspirin 81 No 1{table QD Aspirin 81 81 MG 81 MG t} 81 MG Garlic 1000 Garlic 1000 No Garlic MG MG 1000 MG Alendronate Alendronate No Alendronat Sodium Sodium e Sodium Multivitami Multivitami No Multivitam n n in Hyzaar Hyzaar No 1{table QD Hyzaar 50-12.5 MG 50-12.5 MG t} 50-12.5 MG [place] 3 [place] 3 No 1{capsu QD [place] 3 120-180 MG 120-180 MG le} 120-180 MG potassium potassium No potassium Simvastatin Simvastatin No Simvastati n Vitamin C Vitamin C No Vitamin C 500 MG 500 MG 500 MG Combivent Combivent No Combivent Respimat Respimat Respimat amLODIPine amLODIPine No amLODIPine Besylate Besylate Besylate Alendronate Alendronate No Alendronat Sodium Sodium e Sodium Spironolact Spironolact No Spironolac one one tone Bisoprolol Bisoprolol No Bisoprolol Fumarate Fumarate Fumarate Aspirin 81 Aspirin 81 No 1{table QD Aspirin 81 81 MG 81 MG t} 81 MG methylPREDN methylPREDN No methylPRED ISolone ISolone NISolone Anastrozole Anastrozole No Anastrozol e [place] 3 [place] 3 No 1{capsu QD [place] 3 120-180 MG 120-180 MG le} 120-180 MG Irbesartan- Irbesartan- No Irbesartan hydroCHLORO hydroCHLORO -hydroCHLO thiazide thiazide ROthiazide Multivitami Multivitami No Multivitam n n in Vitamin D-3 Vitamin D-3 No 1{table QD Vitamin 5000 UNIT 5000 UNIT t} D-3 5000 UNIT Tylenol # 3 Tylenol # 3 No Tylenol # 300/30mg 300/30mg 3 300/30mg Breo Breo No Breo Ellipta Ellipta Ellipta Cinnamon Cinnamon No Cinnamon 1000mg 1000mg 1000mg Hyzaar Hyzaar No 1{table QD Hyzaar 50-12.5 MG 50-12.5 MG t} 50-12.5 MG Garlic 1000 Garlic 1000 No Garlic MG MG 1000 MG Econazole Econazole No Econazole Nitrate Nitrate Nitrate Amoxicillin Amoxicillin No Amoxicilli n Amoxicillin Amoxicillin No Amoxicilli -Pot -Pot n-Pot Clavulanate Clavulanate Clavulanat e Losartan Losartan No Losartan Potassium-H Potassium-H Potassium- CTZ CTZ HCTZ Calcium 500 Calcium 500 No 1{table BID Calcium + D 500-125 + D 500-125 t} 500 + D MG-UNIT MG-UNIT 500-125 MG-UNIT potassium potassium No potassium Amoxicillin Amoxicillin No Amoxicilli n Vitamin C Vitamin C No Vitamin C 500 MG 500 MG 500 MG methylPREDN methylPREDN No methylPRED ISolone ISolone NISolone Losartan Losartan No Losartan Potassium-H Potassium-H Potassium- CTZ CTZ HCTZ Tylenol # 3 Tylenol # 3 No Tylenol # 300/30mg 300/30mg 3 300/30mg Amoxicillin Amoxicillin No Amoxicilli -Pot -Pot n-Pot Clavulanate Clavulanate Clavulanat e Cinnamon Cinnamon No Cinnamon 1000mg 1000mg 1000mg Garlic 1000 Garlic 1000 No Garlic MG MG 1000 MG Hyzaar Hyzaar No 1{table QD Hyzaar 50-12.5 MG 50-12.5 MG t} 50-12.5 MG Combivent Combivent No Combivent Respimat Respimat Respimat Aspirin 81 Aspirin 81 No 1{table QD Aspirin 81 81 MG 81 MG t} 81 MG Bisoprolol Bisoprolol No Bisoprolol Fumarate Fumarate Fumarate amLODIPine amLODIPine No amLODIPine Besylate Besylate Besylate Calcium 500 Calcium 500 No 1{table BID Calcium + D 500-125 + D 500-125 t} 500 + D MG-UNIT MG-UNIT 500-125 MG-UNIT Multivitami Multivitami No Multivitam n n in Econazole Econazole No Econazole Nitrate Nitrate Nitrate Alendronate Alendronate No Alendronat Sodium Sodium e Sodium Vitamin D-3 Vitamin D-3 No 1{table QD Vitamin 5000 UNIT 5000 UNIT t} D-3 5000 UNIT [place] 3 [place] 3 No 1{capsu QD [place] 3 120-180 MG 120-180 MG le} 120-180 MG Breo Breo No Breo Ellipta Ellipta Ellipta Simvastatin Simvastatin No Simvastati n Anastrozole Anastrozole No Anastrozol e Irbesartan- Irbesartan- No Irbesartan hydroCHLORO hydroCHLORO -hydroCHLO thiazide thiazide ROthiazide Spironolact Spironolact No Spironolac one one tone Amoxicillin Amoxicillin No Amoxicilli -Pot -Pot n-Pot Clavulanate Clavulanate Clavulanat e [place] 3 [place] 3 No 1{capsu QD [place] 3 120-180 MG 120-180 MG le} 120-180 MG Vitamin C Vitamin C No Vitamin C 500 MG 500 MG 500 MG Combivent Combivent No Combivent Respimat Respimat Respimat Vitamin D-3 Vitamin D-3 No 1{table QD Vitamin 5000 UNIT 5000 UNIT t} D-3 5000 UNIT Amoxicillin Amoxicillin No Amoxicilli n Breo Breo No Breo Ellipta Ellipta Ellipta Tylenol # 3 Tylenol # 3 No Tylenol # 300/30mg 300/30mg 3 300/30mg Bisoprolol Bisoprolol No Bisoprolol Fumarate Fumarate Fumarate Hyzaar Hyzaar No 1{table QD Hyzaar 50-12.5 MG 50-12.5 MG t} 50-12.5 MG Multivitami Multivitami No Multivitam n n in Alendronate Alendronate No Alendronat Sodium Sodium e Sodium Losartan Losartan No Losartan Potassium-H Potassium-H Potassium- CTZ CTZ HCTZ Garlic 1000 Garlic 1000 No Garlic MG MG 1000 MG Cinnamon Cinnamon No Cinnamon 1000mg 1000mg 1000mg potassium potassium No potassium methylPREDN methylPREDN No methylPRED ISolone ISolone NISolone Calcium 500 Calcium 500 No 1{table BID Calcium + D 500-125 + D 500-125 t} 500 + D MG-UNIT MG-UNIT 500-125 MG-UNIT Irbesartan- Irbesartan- No Irbesartan hydroCHLORO hydroCHLORO -hydroCHLO thiazide thiazide ROthiazide Aspirin 81 Aspirin 81 No 1{table QD Aspirin 81 81 MG 81 MG t} 81 MG Simvastatin Simvastatin No Simvastati n Anastrozole Anastrozole No Anastrozol e amLODIPine amLODIPine No amLODIPine Besylate Besylate Besylate Econazole Econazole No Econazole Nitrate Nitrate Nitrate Garlic 1000 Garlic 1000 No Garlic MG MG 1000 MG Bisoprolol Bisoprolol No Bisoprolol Fumarate Fumarate Fumarate Tylenol # 3 Tylenol # 3 No Tylenol # 300/30mg 300/30mg 3 300/30mg potassium potassium No potassium Calcium 500 Calcium 500 No 1{table BID Calcium + D 500-125 + D 500-125 t} 500 + D MG-UNIT MG-UNIT 500-125 MG-UNIT Hyzaar Hyzaar No 1{table QD Hyzaar 50-12.5 MG 50-12.5 MG t} 50-12.5 MG Losartan Losartan No Losartan Potassium-H Potassium-H Potassium- CTZ CTZ HCTZ Vitamin D-3 Vitamin D-3 No 1{table QD Vitamin 5000 UNIT 5000 UNIT t} D-3 5000 UNIT Amoxicillin Amoxicillin No Amoxicilli n methylPREDN methylPREDN No methylPRED ISolone ISolone NISolone Breo Breo No Breo Ellipta Ellipta Ellipta Aspirin 81 Aspirin 81 No 1{table QD Aspirin 81 81 MG 81 MG t} 81 MG Alendronate Alendronate No Alendronat Sodium Sodium e Sodium Anastrozole Anastrozole No Anastrozol e Combivent Combivent No Combivent Respimat Respimat Respimat amLODIPine amLODIPine No amLODIPine Besylate Besylate Besylate Amoxicillin Amoxicillin No Amoxicilli -Pot -Pot n-Pot Clavulanate Clavulanate Clavulanat e Simvastatin Simvastatin No Simvastati n Cinnamon Cinnamon No Cinnamon 1000mg 1000mg 1000mg Vitamin C Vitamin C No Vitamin C 500 MG 500 MG 500 MG Irbesartan- Irbesartan- No Irbesartan hydroCHLORO hydroCHLORO -hydroCHLO thiazide thiazide ROthiazide Econazole Econazole No Econazole Nitrate Nitrate Nitrate [place] 3 [place] 3 No 1{capsu QD [place] 3 120-180 MG 120-180 MG le} 120-180 MG Multivitami Multivitami No Multivitam n n in Bisoprolol Bisoprolol No Bisoprolol Fumarate Fumarate Fumarate Breo Breo No Breo Ellipta Ellipta Ellipta amLODIPine amLODIPine No amLODIPine Besylate Besylate Besylate Econazole Econazole No Econazole Nitrate Nitrate Nitrate Losartan Losartan No Losartan Potassium-H Potassium-H Potassium- CTZ CTZ HCTZ Tylenol # 3 Tylenol # 3 No Tylenol # 300/30mg 300/30mg 3 300/30mg methylPREDN methylPREDN No methylPRED ISolone ISolone NISolone Amoxicillin Amoxicillin No Amoxicilli n Combivent Combivent No Combivent Respimat Respimat Respimat Vitamin D-3 Vitamin D-3 No 1{table QD Vitamin 5000 UNIT 5000 UNIT t} D-3 5000 UNIT Calcium 500 Calcium 500 No 1{table BID Calcium + D 500-125 + D 500-125 t} 500 + D MG-UNIT MG-UNIT 500-125 MG-UNIT Simvastatin Simvastatin Yes U T 10 MG Oral 10 MG Oral Phy sici Tablet Tablet ans Losartan Losartan Yes UT Potassium Potassium Physi ci 50 MG Oral 50 MG Oral ans Tablet Tablet Cinnamon Cinnamon Yes UT 500 MG Oral 500 MG Oral P hysici Capsule Capsule ans Garlic 1000 Garlic 1000 Yes U T MG Oral MG Oral Physici Capsule Capsule ans Combivent Combivent Yes UT AERO AERO Physici ans Immunizations Ordered Immunization Filled Immunization Date Status Commen ts Source Name Name PFIZER COVID-19 MRNA 2020-07-02 Completed Meth odist VACCINATION 00:00:00 [facility] PFIZER COVID-19 MRNA 2020-06-11 Completed Meth odist VACCINATION 00:00:00 Hospital Vital Signs Vital Name Observation Time Observation Value Comments Source Body height 2022-03-29 167.6 cm [facility] 19:55:00 [facility] height 2021-12-27 66 [in_i] [facility] 09:45:00 [facility] weight 2021-12-27 165 [lb_av] [facility] - 09:45:00 [facility] bmi 2021-12-27 26.63 kg/m2 [facility] - 09:45:00 [facility] blood pressure 2021-12-27 122 mm[Hg] [facility] - systolic 09:45:00 [facility] blood pressure 2021-12-27 74 mm[Hg] [facility] - diastolic 09:45:00 [facility] height 2021-12-20 66 [in_i] [facility] - 11:00:00 [facility] weight 2021-12-20 165 [lb_av] [facility] - 11:00:00 [facility] temperature 2021-12-20 97.2 [degF] [facility] - 11:00:00 [facility] bmi 2021-12-20 26.63 kg/m2 [facility] - 11:00:00 [facility] blood pressure 2021-12-20 120 mm[Hg] [facility] - systolic 11:00:00 [facility] blood pressure 2021-12-20 72 mm[Hg] [facility] - diastolic 11:00:00 [facility] height 2021-12-13 66 [in_i] [facility] - 09:45:00 [facility] weight 2021-12-13 165 [lb_av] [facility] - 09:45:00 [facility] temperature 2021-12-13 97.7 [degF] [facility] - 09:45:00 [facility] bmi 2021-12-13 26.63 kg/m2 [facility] - 09:45:00 [facility] blood pressure 2021-12-13 126 mm[Hg] [facility] - systolic 09:45:00 [facility] blood pressure 2021-12-13 72 mm[Hg] [facility] - diastolic 09:45:00 [facility] height 2021-06-17 66 [in_i] [facility] - 13:00:00 [facility] weight 2021-06-17 165 [lb_av] [facility] - 13:00:00 [facility] bmi 2021-06-17 26.63 kg/m2 [facility] - 13:00:00 [facility] blood pressure 2021-06-17 148 mm[Hg] [facility] - systolic 13:00:00 [facility] blood pressure 2021-06-17 90 mm[Hg] [facility] - diastolic 13:00:00 [facility] Heart rate 2021-10-20 57 /min [facility] 15:13:00 Hospital Respiratory rate 2021-10-20 14 /min [facility] 15:13:00 Hospital Oxygen saturation 2021-10-20 99 /min [facility] in Arterial blood 15:13:00 Hospital by Pulse oximetry BP Systolic 2017-08-23 132 mm[Hg] Location: [facility] 10:55:00 BP Diastolic 2017-08-23 77 mm[Hg] Location: [facility] 10:55:00 Height 2017-08-23 66 [in_us] [facility] 10:55:00 Weight 2017-08-23 165 [lb_av] [facility] 10:55:00 Body Mass Index 2017-08-23 26.63 kg/m2 [facility] Calculated 10:55:00 Heart Rate 2017-08-23 71 /min [facility] 10:55:00 Procedures Procedure Date / Time Performing Clinician Source Performed ASSIGNMENT OF BENEFITS 2022-03-29 19:10:32 Doctor Unassigned, No [facility] [U] XRAY KNEE 3 VWS 2017-08-23 00:00:00 [facility] LEFT [id number] History of [facility]end[facility] History of Tubal [facility] Ligation History of Colon [facility] Surgery History of Arthroscopy [facility] Knee Right History of Bladder [facility] History of Arthroscopy [facility] Shoulder Right History of Right Breast [facility] Lumpectomy History of Foot Surgery [facility] History of Total Knee [facility] Replacement Left Plan of Care Planned Activity Planned Date Details Comments Source Future Scheduled 2022-05-06 65+ [facility]AL [facility] 00:57:25 VACCINE (1 - PCV) [code = 65+ PNEUMOCOCCAL VACCINE (1 - PCV)] Future Scheduled 2022-05-06 Hepatitis C screening [facility] Test 00:57:25 (procedure) [code = 404043521] Future Scheduled 2022-05-06 SHINGLES VACCINES (1 [facility] Test 00:57:25 of 2) [code = SHINGLES VACCINES (1 of 2)] Future Scheduled 2022-05-06 COVID-19 VACCINE (4 - [facility] Test 00:57:25 Booster for Pfizer series) [code = COVID-19 VACCINE (4 - Booster for Pfizer series)] Future Scheduled 2022-05-06 INFLUENZA VACCINE [facility] Test 00:57:25 [code = INFLUENZA VACCINE] Encounters Start End Encounter Admission Attending Care Care Encounter Source Date/Time Date/Time Type Type Clinicians Facility Department ID 2021-06-23 Outpatient TIMMY Gomez [facility] [id number] Common 08:18:01 [facility] 2021-06-16 Outpatient TIMMY Gomez [facility] [id number] Common 12:07:45 Sourav [id number] [facility] 2018-12-21 Outpatient MHFB PUL [id number] MH FB 09:09:49 2022-03-29 2022-03-29 Office SHANKAR [facility] [id number] Univers 14:15:00 14:30:46 Visit Andreia Melida [facility] [id number] ity of [facility] [id number] [id number] [address] 2022-03-29 2022-03-29 Outpatient [facility] [id number] [facility] 14:15:00 14:30:46 ANDREIA itmartha [facility] 2022-03-29 2022-03-29 Orders Doctor DEBBIE [id number] Univers 00:00:00 00:00:00 Only Unassigned, MEME [id number] ity of [place] [facility] [id number] [place] [id number] [facility] [address] 2021-12-27 2021-12-27 (IN/ASP) [facility] [id number] C ommon 00:00:00 00:00:00 INJ ASP [facility] 2021-12-20 2021-12-20 (IN/ASP) [facility] [id number] C ommon 00:00:00 00:00:00 INJ ASP [facility] 2021-12-13 2021-12-13 OFFICE [facility] [id number] Co mmon 00:00:00 00:00:00 VISIT Spirit ESTAB PT - [facility] LEVEL 4 [facility] 2021-10-20 2021-10-20 Office Montse [id number] [facility] 10:15:00 16:52:26 Visit Yelena [id number] 3.430.2.7 Hospit a .3.498661 l .8 2021-10-20 2021-10-20 Outpatient OOLUT, [facility] [id number] [place] 00:00:00 00:00:00 YELENA [address] 2021-10-20 2021-10-20 Travel 1.2.840.1 [id number] [facility] 00:00:00 00:00:[id number] 3.430.2.7 0.2.7.3.698 spita .3.422675 084.8 l .8 2021-09-06 2021-09-06 OFFICE STLMLC STL[facility]C [id number] Co mmon 00:00:00 00:00:00 [facility] ESTAB PT - [facility]I LEVEL 4 [facility] 2021-06-17 2021-06-17 OFFICE STLMLC STLMLC [id number] Co mmon 00:00:00 00:00:00 [facility] ESTAB PT - [facility] LEVEL 4 [facility] 2021-04-21 2021-04-21 Outpatient [facility] [id number] [place] 00:00:00 00:00:00 694 Method i 2021-04-21 2021-04-21 [facility] [id number] [address] [place] [address] 00:00:00 00:00:00 YELENA [address] 2021-03-23 2021-03-23 [facility]patient [facility] [id number] Univers 14:30:00 14:45:51 [facility] 2021-03-23 2021-03-23 Office SHANKAR [facility] [id number] Univers 13:57:50 14:45:51 Visit Andreia HATCH [id number] ity of [facility] [id number] Yannick conner [phone] [address] 2021-03-23 2021-03-23 Outpatient Marshal [facility] [id number] Univers 14:30:00 14:30:00 ANDREIA de león [facility] 2020-11-24 2020-11-24 Outpatient OOLUT, [facility] [id number] [place] 00:00:00 00:00:00 YELENA [address] 2020-10-20 2020-10-20 Outpatient OOLUT, [facility] [id number] [place] 00:00:00 00:00:00 YELENA [address] 2020-07-02 2020-07-02 Outpatient [facility] [id number] [place] 00:00:00 00:00:[address] 2020-06-16 2020-06-16 Outpatient STLMLC [facility] [id number] Common 00:00:00 00:00:00 [facility] 2020-06-11 2020-06-11 Outpatient [facility] [id number] [place] 00:00:00 00:00:[address] 2020-04-21 2020-04-21 Outpatient OOLUT, [facility] [id number] [place] 00:00:00 00:00:00 YELENA 659 Method i 2020-04-21 2020-04-21 Outpatient [facility] [id number] [place] 00:00:00 00:00:00 658 [facility] i 2020-04-13 2020-04-13 Outpatient STLMLC STLMLC [id number] Common 00:00:00 00:00:00 [facility] 2020-03-12 2020-03-12 [facility] [id number] 09:40:13 10:09:37 Visit Andreia MAHAJAN [id number] IAY [id number] [place] [id number] AND CHAN [facility] 2020-03-12 2020-03-12 [facility] [id number] [facility] 10:00:00 10:00:00 ANDREIA de león [facility] 2019-11-13 2019-11-13 Outpatient OOLUT, [facility] [id number] [place] 00:00:00 00:00:00 YELENA [address] 2019-05-24 2019-05-24 Outpatient OOLUT, [facility] [id number] [place] 00:00:00 00:00:00 YELENA [address] 2018-09-11 2018-09-11 Out[facility] [id number] Common 08:00:00 08:00:00 [facility] 2018-08-16 2018-08-16 [facility] [id number] Common 09:00:00 09:00:00 [facility] 2018-07-23 2018-07-23 [facility] [id number] Common 14:30:00 14:30:00 t [facility] 2018-06-25 2018-06-25 [facility] [id number] Common 08:30:00 08:30:00 t [facility] 2018-05-29 2018-05-29 Out[facility] [id number] Common 14:30:00 14:30:00 t [facility] 2017-08-23 2017-08-23 Appointnilson CASON, [facility] [id number] [place] 10:45:00 10:45:00 t; Tracy [facility]AR [facility] Kay CASON S Gatito Correia M.D. [place] 2017-04-07 2017-04-07 Appointmen KAMLA, [facility] UTP [id number] [place] 11:30:00 11:30:00 t; Tracy BRAR Ph brice Louise M.D. 2016-10-12 2016-10-12 Appointmen KAMLA, [facility] UTP [id number] [place] 10:00:00 10:00:00 t; Tracy BRAR Ph brice Louise M.D. 2016-09-21 2016-09-21 Appointnilson CASON, JAMES UTP [id number] [place] 10:00:00 10:00:00 t; Tracy BRAR Ph briec Louise M.D. 2016-09-08 2016-09-08 Appointmen PARSLEY, UTP UTP [id number] [place] 09:00:00 09:00:00 t; Tracy BRAR Ph brice Louise M.D. 2016-08-26 2016-08-26 Appointmen PARSLEY, UTP UTP [id number] [place] 14:00:00 14:00:00 t; Tracy BRAR Ph brice Louise M.D. 2016-08-08 2016-08-08 Appointmen PARSLEY, [facility]TP UTP [id number] [place] 12:00:00 12:00:00 t; Tracy BRAR Ph brice Louise M.D. 2016-07-27 2016-07-27 Appointmen PARSLEY, UTP UTP [id number] [place] 08:45:00 08:45:00 t; Tracy BRAR Ph brice Louise M.D. 2016-07-13 2016-07-13 Appointmen PARSLEY, UTP UTP [id number] [place] 08:45:00 08:45:00 t; Tracy BRAR Ph brice Louise M.D. 2016-06-28 2016-06-28 Appointmen PARSLEY, UTP UTP [id number] [place] 09:30:00 09:30:00 t; Tracy BRAR Ph brice Louise M.D. 2016-06-07 2016-06-07 Appointmen KENNETH, UTP UTP [id number] [place] 13:15:00 13:15:00 t; SHARI COOPER, TRACK HOE OPERATOR Nicholei SHARI, ans TRACK HOE OPERATOR 2016-05-24 2016-05-24 Appointmen PARSLEY, UTP UTP [id number] [place] 10:00:00 10:00:00 t; Tracy BRAR Ph brice Louise M.D. 2016-05-02 2016-05-02 Appointmen PARSLEY, UTP UTP [id number] [place] 15:00:00 15:00:00 t; Tracy BRAR Ph brice Louise M.D. 2016-04-06 2016-04-06 Appointmen PARSLEY, UTP UTP [id number] [place] 10:30:00 10:30:00 t; Tracy BRAR Ph brice Louise M.D. 2016-01-27 2016-01-27 [facility] [id number] [place] 11:00:00 11:00:00 t; Tracy BRAR Ph brice Louise M.D. Results Test Description Test Time Test Comments Results Result Sourc e Comments [U] XRAY KNEE 3 2017-08-23 Images [facility] V[facility] LEFT [id number] 10:57:00 acquired, not reported on this accession number.
[2022-05-23] MEDS ORDERED: TETRACAINE HCL 0.5% 4ML OPTH ONE (11:29)
[2022-05-23] MEDS ORDERED: NA CHLORIDE 0.9% 1,000 ML ONE (11:53)
[2022-05-23] MEDS ORDERED: FLUORESCEIN SODIUM 1 MG/WRAP ONE (11:53)
--- NOTE | 2022-05-23 12:49 | ER ---
Nurse's Notes [facility] Name: Catrachito Connelly Age: 76 yrs Sex: Female : 1945 Arrival Date: 05/23/2022 Time: 09:34 Bed 9 Private MD: Sourav Gomez V Diagnosis: Other acute conjunctivitis;Chemical Conjunctivitis Presentation: 05/23 10:21 Chief complaint: Patient states: pain and redness to R eye after getting dish detergent ss in R eye yesterday at 4 pm. Coronavirus screen: Client denies travel out of the [place] in the last 14 days. Ebola Screen: Patient denies exposure to infectious person. Patient denies travel to an Ebola-affected area in the 21 days before illness onset. Initial Sepsis Screen: Does the patient meet any 2 criteria? No. Patient's initial sepsis screen is negative. Does the patient have a suspected source of infection? No. Patient's initial sepsis screen is negative. Risk Assessment: Do you want to hurt yourself or someone else? Patient reports no desire to harm self or others. Note Pt reports she rinsed her eye out vigorously after incident. Onset of symptoms was May 22, 2021. 10:21 Method Of Arrival: Ambulatory ss 10:21 Acuity: PENNY 2 ss Triage Assessment: 12:15 General: Appears distressed, Behavior is calm, cooperative, appropriate for age. ap3 12:15 Pain: Complains of pain in right eye. ap3 Historical: - Allergies: 10:24 No Known Allergies; ss - PMHx: 10:24 Asthma; High Cholesterol; HTN; ss - PSHx: 10:24 Appendectomy; Cholecystectomy; hysterectomy; ss - Immunization history:: Client reports receiving the 2nd dose of the Covid vaccine. - Social history:: Smoking status: Patient denies any tobacco usage or history of. Screenin:15 [facility] ED Fall Risk Assessment (Adult) History of falling in the last 3 months, ap3 including since admission. 13:36 Abuse screen: Denies threats or abuse. Nutritional screening: No deficits noted. ap3 Tuberculosis screening: No symptoms or risk factors identified. Vital Signs: 10:21 BP 131 / 70; Pulse 71; Resp 16; Temp 97.5(TE); Pulse Ox 100% on R/A; Weight 71.21 kg ss (M); Height 5 ft. 4 in. (162.56 cm); Pain 6/10; 10:21 Body Mass Index 26.95 (71.21 kg, 162.56 cm) ED Course: 09:34 Patient arrived in ED. mr 09:35 Sourav Gomez MD is Private Physician. mr 09:37 Karen Machado FNP is [facility] 09:37 Dennise Hernández MD is Attending Physician. [facility] 10:23 Triage completed. ss 10:24 Arm band placed on right wrist. 11:38 Nadiya Glynn, RN is Primary Nurse. ap3 13:37 Patient has correct armband on for positive identification. Bed in low position. Call ap3 light in reach. Side rails up X 1. Adult w/ patient. Pulse ox on. NIBP on. 13:37 No provider procedures requiring assistance completed. Patient did not have IV access ap3 during this emergency room visit. Administered Medications: 11:59 Drug: Tetracaine Drops 0.5 % 1 drops Route: Ophthalmic; Site: right eye; ap3 Medication: 13:37 VIS not applicable for this client. ap3 Outcome: 12:48 Discharge ordered by . [facility] 13:37 Discharged to home ambulatory, with family. ap3 13:37 Condition: good 13:37 Discharge instructions given to patient, Instructed on discharge instructions, follow up and referral plans. Demonstrated understanding of instructions, follow-up care, medications, Prescriptions given X 1. 13:45 Patient left the ED. ap3 Signatures: Shaista BañuelosDebra RN RN Nadiya Glynn RN RN 3 Karen Machado FNP [place] [id number]
--- NOTE | 2022-05-23 12:49 | EDPHYS ---
Physician Documentation [facility] Name: Catrachito Connelly Age: 76 yrs Sex: Female : 1945 Arrival Date: 05/23/2022 Time: 09:34 Bed 9 Private MD: Sourav Gomez V ED Physician Dennise Hernández HPI: 05/23 09:40 This 76 yrs old Female presents to ER via Unassigned with complaints of Redness of Eye, jh7 Eye Swelling. 09:40 The patient is experiencing burning, pain, redness, tearing, The patient sustained a jh7 splash, to the right eye, caused by cleaning solution. Onset: The symptoms/episode began/occurred yesterday. Duration: the symptoms are continuous. Associated signs and symptoms: Pertinent negatives: dizziness, fever. Patient reports eye redness, tearing, and swelling after some dishwashing detergent got in her right eye yesterday at 4 PM. States that she flushed it at home, but is still experiencing a burning sensation. Denies visual loss.. Historical: - Allergies: 10:24 No Known Allergies; ss - PMHx: 10:24 Asthma; High Cholesterol; HTN; ss - PSHx: 10:24 Appendectomy; Cholecystectomy; hysterectomy; ss - Immunization history:: Client reports receiving the 2nd dose of the Covid vaccine. - Social history:: Smoking status: Patient denies any tobacco usage or history of. ROS: 09:40 Constitutional: Negative for fever, chills, and weight loss, ENT: Negative for injury, jh7 pain, and discharge, Neck: Negative for injury, pain, and swelling, Cardiovascular: Negative for chest pain, palpitations, and edema, Respiratory: Negative for shortness of breath, cough, wheezing, and pleuritic chest pain, Abdomen/GI: Negative for abdominal pain, nausea, vomiting, diarrhea, and constipation, Back: Negative for injury and pain, MS/Extremity: Negative for injury and deformity, Skin: Negative for injury, rash, and discoloration, Neuro: Negative for headache, weakness, numbness, tingling, and seizure. 09:40 Eyes: Positive for blurry vision, pain, redness, tearing, Negative for vision loss. 09:40 All other systems are negative. Exam: 09:40 Constitutional: This is a well developed, well nourished patient who is awake, alert, jh7 and in no acute distress. Head/Face: Normocephalic, atraumatic. ENT: Nares patent. No nasal discharge, no septal abnormalities noted. Tympanic membranes are normal and external auditory canals are clear. Oropharynx with no redness, swelling, or masses, exudates, or evidence of obstruction, uvula midline. Mucous membranes moist. Neck: Trachea midline, no thyromegaly or masses palpated, and no cervical lymphadenopathy. Supple, full range of motion without nuchal rigidity, or vertebral point tenderness. No Meningismus. Cardiovascular: Regular rate and rhythm with a normal S1 and S2. No gallops, murmurs, or rubs. Normal PMI, no JVD. No pulse deficits. Respiratory: Lungs have equal breath sounds bilaterally, clear to auscultation and percussion. No rales, rhonchi or wheezes noted. No increased work of breathing, no retractions or nasal flaring. Skin: Warm, dry with normal turgor. Normal color with no rashes, no lesions, and no evidence of cellulitis. Neuro: Awake and alert, GCS 15, oriented to person, place, time, and situation. Motor strength 5/5 in all extremities. Sensory grossly intact. Normal gait. 09:40 Eyes: Periorbital structures: appear normal, Pupils: equal, round, and reactive to light and accomodation, Extraocular movements: intact throughout, Conjunctiva: injected, in the right eye, tearing noted, in right eye, Sclera: no appreciated abnormality, Anterior chamber: normal, Lids and lashes: appear normal. Vital Signs: 10:21 BP 131 / 70; Pulse 71; Resp 16; Temp 97.5(TE); Pulse Ox 100% on R/A; Weight 71.21 kg ss (M); Height 5 ft. 4 in. (162.56 cm); Pain 6/10; 10:21 Body Mass Index 26.95 (71.21 kg, 162.56 cm) Procedures: 11:45 Eye Exam: Right eye negative for corneal abrasion. Eye irrigation of right eye w/ 7 Edgar lens IV tubing with 500 ml normal saline, Patient tolerated well. MDM: 09:37 Patient medically screened. [facility] 12:00 Differential diagnosis: Corneal abrasion of right eye. Foreign body in right eye. jh7 Chemical conjunctivitis in right eye. Infectious conjunctivitis in right eye. Data reviewed: vital signs, nurses notes. Data interpreted: Pulse oximetry: is 100 %. Counseling: I had a detailed discussion with the patient and/or guardian regarding: the historical points, exam findings, and any diagnostic results supporting the discharge/admit diagnosis, to return to the emergency department if symptoms worsen or persist or if there are any questions or concerns that arise at home. Response to treatment: the patient's symptoms have markedly improved after treatment. 05/23 09:50 Order name: Eye Tray; Complete Time: 11:59 [facility] 05/23 09:50 Order name: Fluoresene Opth strip; Complete Time: 11:59 [facility] 05/23 09:50 Order name: Visual Acuity; Complete Time: 13:36 [facility] 05/23 09:50 Order name: Misc. Order: edgar lens, 1000 mL 0.9% NS to flush eye; Complete Time: :59h7 Administered Medications: 11:59 Drug: Tetracaine Drops 0.5 % 1 drops Route: Ophthalmic; Site: right eye; ap3 Disposition: 18:42 STAFF ATTESTATION STATEMENT: I was immediately available onsite in the emergency sd2 department for consultation in the care of this patient. I did not see or examine this patient. Dennise Hernández MD. Disposition Summary: 05/23/22 12:48 Discharge Ordered Location: [place] [address] Problem: new [facility] Symptoms: have improved [facility] Condition: Stable [facility] Diagnosis - Other acute conjunctivitis [facility] - Chemical Conjunctivitis [facility] Followup: [facility] - With: Private Physician - When: 2 - 3 days - Reason: Recheck today's complaints Discharge Instructions: - Discharge Summary Sheet jh7 - Chemical Conjunctivitis, Adult jh7 - Chemical Burn of the Eyes, Adult [facility] Forms: - Medication Reconciliation Form [facility] - Thank You Letter [facility] - Antibiotic Education [facility] Prescriptions: - Erythromycin 5 mg/gram (0.5 %) Ophthalmic Ointment - apply 1 centimeter by OPHTHALMIC route 2-3 times daily for 7 days; 1 tube; [facility] Refills: 0, Product Selection Permitted Signatures: Debra Awad RN RN ss Nadiya Glynn RN RN ap3 Karen Machado FNP GEOSPATIAL INFORMATION SCIENTIST 7 Dennise Hernández MD MD sd2 Corrections: (The following items were deleted from the chart) 14:50 10:00 Eye Exam: Right eye negative for corneal abrasion 7 7 14:50 10:00 Eye irrigation of right eye w/ Edgar lens IV tubing with 500 ml normal saline, jh7 Patient tolerated well. 7
[2022-05-23 13:49] VITALS: BP 131/70; TEMP 97.5; O2SAT 100
== END 2022-05-23 13:45 | disposition home or self-care (01) ==
LOC: ER 09:29
DX: H10.211 Acute toxic conjunctivitis, right eye (principal)
CPT/HCPCS: 99283; J7030

== ENCOUNTER 2025-02-27 22:41 | Emergency (ER) | payer OTHER, MEDICARE ==
[2025-02-27] MEDS ORDERED: ACETAMINOPHEN 500 MG TAB ONE (23:45)
[2025-02-28 00:09] LABS: Absolute Lymphocytes (CBC) 1.9 K/uL (0.7-4.9); Hematocrit 41.0 % (36.0-45.0); Hemoglobin 13.6 g/dL (12.0-15.0); MCH 29.7 pg (27.0-35.0); MCHC 33.2 g/dL (32.0-36.0); MCV 89.5 fL (80-100); MPV 7.3 fL (7.6-11.3); Nucleated RBC Absolute Count 0.0 (0-0); Nucleated Red Blood Cells % 0.1 % (0-0); RBC Red Blood Cell Count 4.58 M/uL (3.86-4.86); White Blood Count 11.20 thou/uL (4.3-10.9)
[2025-02-28 00:19] LABS: Anion Gap 8.2 mEq/L (5.0-15.0); BUN Blood Urea Nitrogen 30.0 mg/dL (7-18); Glucose Level 126.0 mg/dL (74-106); Potassium 4.2 mEq/L (3.5-5.1)
--- NOTE | 2025-02-28 01:19 | RAD REPORT ---
EXAM DESCRIPTION: Head C Spine Mpr Wo Con 02/28/2025 1:11 AM CDT CLINICAL HISTORY: 79 years, Female, fall COMPARISON: None FINDINGS: Multiple transaxial tomograms of the brain were obtained from the base of the skull to the vertex wit hout contrast. An individualized dose optimization technique, Automated Exposure Control, was utilized for the perfo rmed procedure. Brain: The brain demonstrate prominence of the sulci and gyri corresponding to mild brain atrophy. Th ere is very minimal periventricular white matter changes of microvascular ischemia. No acute intracranial hemorrhage. No midline shift and/or mass effect. Ventricles: Lateral ventricles and cisterns displace normal appearance. Vasculature: No visualized abnormalities in the arteries or dural venous sinuses. Scalp/skull: The calvarium demonstrate to be intact with no evidence for acute bony injuries. Sinuses: The visualized paranasal sinuses and mastoid air cells demonstrate to be clear. Orbits: No significant abnormalities in the visualized orbital structures. IMPRESSION: No acute intracranial hemorrhage. Mild brain atrophy with very minimal periventricular white matter changes of microvascular ischemia. Electronically signed by: Kei Patricio MD 02/28/2025 01:11 AM CDT RP Due to temporary technical issues with the PACS/[employer] reporting system, reports are being ashley d by the in-house radiologist without review as a courtesy to ensure prompt reporting the interpreting radiologist is fully responsible for the content of the report. Transcribed Date/Time: 02/28/2025 1:19 AM
--- NOTE | 2025-02-28 01:35 | RAD REPORT ---
EXAM: CT Chest, Abdomen and Pelvis Without Intravenous Contrast FACILITY: [facility] CLINICAL HISTORY: 79 years, Female; FALL TECHNIQUE: Axial computed tomography images of the chest, abdomen and pelvis without intravenous contrast. S agittal and coronal reformatted images were created and reviewed. This CT exam was performed using one or more of the following dose reduction techniques: automated exposure control, adjustmen t of the mA and/or kV according to patient size, and/or use of iterative reconstruction technique. COMPARISON: No relevant prior studies available. FINDINGS: CHEST: Lungs and pleural spaces: Granuloma in the left upper lobe. Basilar atelectasis. No mass. No significant effusion. No pneumothorax. Heart: Coronary calcifications. No cardiomegaly. No significant pericardial effusion. ABDOMEN: Liver: Unremarkable. Gallbladder and bile ducts: Cholecystectomy clips. No ductal dilation. Pancreas: Unremarkable. No ductal dilation. Spleen: Splenic calcifications. Adrenals: 2 cm right adrenal nodule. Radiodensity of -28. Kidneys and ureters: Age-related perinephric stranding. No obstructing stones. No hydronephrosis. Stomach and bowel: Scattered colonic diverticula. No obstruction. No mucosal thickening. PELVIS: Appendix: No findings to suggest acute appendicitis. Bladder: Unremarkable. No stones. Reproductive: Hysterectomy. CHEST, ABDOMEN and PELVIS: Intraperitoneal space: Unremarkable. No significant fluid collection. No free air. Bones/joints: Compression deformity of the T12 vertebral body. No retropulsed segments. Soft tissues: Unremarkable. Vasculature: Atherosclerotic aortic arch. Atherosclerotic abdominal aorta and branches. No aortic aneurysm. Lymph nodes: Unremarkable. No enlarged lymph nodes. IMPRESSION: 1. Compression deformity of the T12 vertebral body. No retropulsed segments. 2. 2 cm right adrenal nodule. Radiodensity of -28. Findings consistent with adrenal adenoma. 3. Scattered colonic diverticula. Electronically signed by: Joycelyn Horowitz MD 02/28/2025 01:22 AM CDT RP H Due to temporary technical issues with the PACS/[employer] reporting system, reports are being ashley d by the in-house radiologist without review as a courtesy to ensure prompt reporting the interpreting radiologist is fully responsible for the content of the report. Transcribed Date/Time: 02/28/2025 1:34 AM
--- NOTE | 2025-02-28 02:32 | ER ---
Nurse's Notes [facility] Name: Catrachito Connelly Age: 79 yrs Sex: Female : 1945 Arrival Date: 02/27/2025 Time: 22:41 Bed 15 Private MD: Diagnosis: Fall on same level from slipping, tripping and stumbling with subsequent striking against object;Fracture of thoracic vertebra-compression type of T12 Presentation: 02/27 22:53 Chief complaint: Patient states: PT MISSED A STEP CAUSING HER TO FALL TO BUTTOCKS, BACK br2 AND HITTING HEAD ON CONCRETE. PT DENIES LOC. PT C/O MID RIGHT LATERAL BACK. Coronavirus screen: Client denies travel out of the [place] in the last 14 days. Ebola Screen: Patient denies travel to an Ebola-affected area in the 21 days before illness onset. Initial Sepsis Screen: Does the patient meet any 2 criteria? No. Patient's initial sepsis screen is negative. Does the patient have a suspected source of infection? No. Patient's initial sepsis screen is negative. Risk Assessment: Do you want to hurt yourself or someone else? Patient reports desire/thoughts of hurting themselves or someone else. Provider notified. Onset of symptoms is unknown. 22:53 Method Of Arrival: EMS: [facility] br2 22:53 Acuity: PENNY 3 br2 Triage Assessment: 22:55 General: Appears in no apparent distress. comfortable, Behavior is calm, cooperative. br2 Pain: Complains of pain in lumbar area, right mid back and right low back. Historical: - Allergies: 23:24 Hydrocodone-Acetaminophen; br2 23:24 Lisinopril; br2 - PMHx: 22:55 Asthma; High Cholesterol; HTN; br2 - PSHx: 22:55 hysterectomy; Appendectomy; Cholecystectomy; BLADDER (Cholecystectomy); RIGHT SHOULDER br2 (Cholecystectomy); RIGHT LUPECTOMY (Cholecystectomy); LEFT KNEE (Cholecystectomy); RIGHT KNEE (Cholecystectomy); BILATERAL CATARACTS (Cholecystectomy); - Immunization history:: Adult Immunizations up to date. - Infectious Disease History:: Denies. - Social history:: Smoking status: Patient/guardian denies using tobacco, Patient/guardian denies using alcohol, street drugs. Screenin:07 [facility] ED Fall Risk Assessment (Adult) History of falling in the last 3 months, kt5 including since admission Yes- single mechanical fall (1 pt) Confusion or Disorientation No (0 pts) Intoxicated or Sedated Yes (3 pts) Impaired Gait No (0 pts) Mobility Assist Device Used No (0 pt) Altered Elimination No (0 pt) Score/Fall Risk Level 0 - 2 = Low Risk Oriented to surroundings, Maintained a safe environment. Abuse screen: Denies threats or abuse. Nutritional screening: No deficits noted. Tuberculosis screening: No symptoms or risk factors identified. Assessment: 23:07 General: Appears in no apparent distress. comfortable, Behavior is calm, cooperative, kt5 appropriate for age. Pain: Complains of pain in lumbar area and left low back Pain Quality of pain is described as sharp, Pain began gradually, Is intermittent. Neuro: No deficits noted. Freedman Agitation-Sedation Scale (RASS): 0 - Alert and Calm Level of Consciousness is awake, alert, obeys commands, Oriented to person, place, time, situation, Appropriate for age. Cardiovascular: No deficits noted. Denies chest pain, Heart tones S1 S2 present Capillary refill < 3 seconds Clubbing of nail beds is absent JVD is absent Pulses are all present. Edema is absent. Respiratory: No deficits noted. Airway is patent Trachea midline Respiratory effort is even, unlabored, Respiratory pattern is regular, symmetrical, Breath sounds are clear bilaterally. GI: No deficits noted. Abdomen is round non-distended, Bowel sounds present X 4 quads. Abd is soft and non tender X 4 quads. : No deficits noted. EENT: No deficits noted. No signs and/or symptoms were reported regarding the EENT system. Derm: No deficits noted. No signs and/or symptoms reported regarding the dermatologic system. Skin is intact, is healthy with good turgor, Skin is dry, Skin is pink, warm \T\ dry. Musculoskeletal: No deficits noted. Tenderness present in low back area, right mid back and right low back. 02/28 00:24 General: pt to ct with tech. kt5 00:36 General: pt back from ct, tolerated well. kt5 00:49 Reassessment: Patient appears in no apparent distress at this time. Patient and/or kt5 family updated on plan of care and expected duration. Pain level reassessed. Patient is alert, oriented x 3, equal unlabored respirations, skin warm/dry/pink. Patient states feeling better. Patient states symptoms have improved. 01:46 Reassessment: Patient appears in no apparent distress at this time. No changes from kt5 previously documented assessment. Patient and/or family updated on plan of care and expected duration. Pain level reassessed. Patient is alert, oriented x 3, equal unlabored respirations, skin warm/dry/pink. Patient states feeling better. Patient states symptoms have improved. 02:31 Reassessment: Patient appears in no apparent distress at this time. No changes from kt5 previously documented assessment. Patient and/or family updated on plan of care and expected duration. Pain level reassessed. Patient is alert, oriented x 3, equal unlabored respirations, skin warm/dry/pink. Patient states feeling better. Patient states symptoms have improved. Vital Signs: 02/27 22:53 BP 176 / 93; Pulse 71; Resp 18; Temp 97.1; Pulse Ox 99% on R/A; Weight 67.13 kg; Pain br2 11/28; 23:56 BP 148 / 66; Pulse 77; Resp 18; Pulse Ox 99% ; kt5 02/28 00:49 BP 146 / 72; Pulse 64; Resp 18; Pulse Ox 99% ; Pain 4/10; kt5 01:46 BP 162 / 85; Pulse 65; Resp 16; Pulse Ox 96% ; kt5 02:31 BP 144 / 70; Pulse 73; Resp 18; Temp 98.3; Pulse Ox 97% ; Pain 4/10; kt5 02/27 22:53 Pain Scale: Adult br2 02/28 00:49 Pain Scale: Adult kt5 02:31 Pain Scale: Adult kt5 ED Course: 02/27 22:49 Patient arrived in ED. kt5 22:55 Triage completed. br2 22:55 Splint/sling/ice applied as appropriate. Arm band placed on right wrist. br2 23:07 Bea Vega, RN is Primary Nurse. kt5 23:07 Patient has correct armband on for positive identification. Bed in low position. Call kt5 light in reach. Side rails up X 1. Adult w/ patient. Client placed on continuous cardiac and pulse oximetry monitoring. NIBP monitoring applied. Door closed. Noise minimized. Warm blanket given. Pillow given. 23:07 No provider procedures requiring assistance completed. kt5 23:30 Andre Hyman PA-C is PHCP. cp 23:30 Taqueria Peralta DO is Attending Physician. cp 23:55 Basic Metabolic Panel Sent. kt5 23:55 CBC with Diff Sent. kt5 23:55 Type And Screen Sent. kt5 02/28 00:29 Chest Abd Pelvis Wo Con In Process Unspecified. EDMS 00:29 Head C Spine Mpr Wo Con In Process Unspecified. EDMS 02:30 Sourav Gomez MD is Referral Physician. cp 02:33 Provided Education on: follow up and meds. kt5 02:33 IV discontinued, intact, bleeding controlled, No redness/swelling at site. Pressure kt5 dressing applied. Administered Medications: 02/27 23:56 Drug: Acetaminophen PO 1000 mg PO once Route: PO; br2 02/28 01:07 Follow up: Response: No adverse reaction; Pain is decreased kt5 Medication: 02/27 23:07 VIS not applicable for this client. kt5 Outcome: 02/28 02:32 Discharge ordered by . cp 02:33 Discharged to home via wheelchair, with family, kt5 02:33 Condition: stable 02:33 Discharge instructions given to patient, family, Instructed on discharge instructions, follow up and referral plans. Demonstrated understanding of instructions, follow-up care, medications, 02:42 Patient left the ED. kt5 Signatures: Dispatcher [employer] EDLA Andre Hyman PA-C PA-C cp Riddle, Belinda RN RN br2 Bea Vega RN RN kt5
--- NOTE | 2025-02-28 02:33 | EDPHYS ---
Physician Documentation [facility] Name: Catrachito Connelly Age: 79 yrs Sex: Female : 1945 Arrival Date: 02/27/2025 Time: 22:41 Bed 15 Private MD: ED Physician Taqueria Peralta HPI: 02/27 23:35 This 79 yrs old Female presents to ER via EMS with complaints of Fall. cp 23:35 Details of fall: The patient fell from an upright position, while walking, and struck a cp concrete surface. 23:35 Patient is an 79-year-old female who presents to the emergency department after cp reported fall in her home while in her garage. Patient reports she tripped over the step from her garage into her home causing her to fall back onto her buttocks and then hit her head against a concrete floor. No loss of consciousness. Patient complains of pain in her mid lower back. Patient denies any numbness and no weakness of her legs since the fall. Historical: - Allergies: 23:24 Hydrocodone-Acetaminophen; br2 23:24 Lisinopril; br2 - PMHx: 22:55 Asthma; High Cholesterol; HTN; br2 - PSHx: 22:55 hysterectomy; Appendectomy; Cholecystectomy; BLADDER (Cholecystectomy); RIGHT SHOULDER br2 (Cholecystectomy); RIGHT LUPECTOMY (Cholecystectomy); LEFT KNEE (Cholecystectomy); RIGHT KNEE (Cholecystectomy); BILATERAL CATARACTS (Cholecystectomy); - Immunization history:: Adult Immunizations up to date. - Infectious Disease History:: Denies. - Social history:: Smoking status: Patient/guardian denies using tobacco, Patient/guardian denies using alcohol, street drugs. ROS: 23:40 Back: Positive for pain at rest, pain with movement, of the thoracic area and lumbar cp area, 23:40 Neuro: Negative for altered mental status, dizziness, loss of consciousness, weakness, 23:40 Eyes: Negative for injury, pain, redness, and discharge, cp 23:40 Constitutional: Negative for body aches, chills, fever, poor PO intake, 23:40 Neck: Negative for pain with movement, pain at rest, stiffness, 23:40 Cardiovascular: Negative for chest pain, edema, palpitations, 23:40 Respiratory: Negative for cough, shortness of breath, wheezing, 23:40 Abdomen/GI: Negative for abdominal pain, vomiting, diarrhea, constipation, 23:40 Skin: Negative for rash, 23:40 All other systems are negative, Exam: 23:45 Constitutional: The patient appears in no acute distress, alert, awake, comfortable, cp non-diaphoretic, non-toxic, well developed, well nourished, 23:45 Head/Face: Normocephalic, atraumatic. cp 23:45 Eyes: Periorbital structures: appear normal, Pupils: equal, round, and reactive to light and accomodation, Extraocular movements: intact throughout, Conjunctiva: normal, no exudate, no injection, Sclera: no appreciated abnormality, Lids and lashes: appear normal, bilaterally, 23:45 ENT: External ear(s): are unremarkable, Nose: is normal, Mouth: Lips: moist, Oral mucosa: moist, Posterior pharynx: Airway: no evidence of obstruction, patent, 23:45 Neck: C-spine: vertebral tenderness, is not appreciated, crepitus, is not appreciated, ROM/movement: pain, is not appreciated, limited range of motion, is not appreciated, 23:45 Chest/axilla: Inspection: normal, Palpation: crepitus, is not appreciated, tenderness, is not appreciated, 23:45 Cardiovascular: Rate: normal, Rhythm: regular, Edema: is not appreciated, JVD: is not appreciated, 23:45 Respiratory: the patient does not display signs of respiratory distress, Respirations: normal, no use of accessory muscles, no retractions, labored breathing, is not present, Breath sounds: are clear throughout, no decreased breath sounds, no stridor, no wheezing, 23:45 Abdomen/GI: Inspection: abdomen appears normal, Palpation: abdomen is soft and non-tender, in all quadrants, 23:45 Back: pain, that is mild, of the thoracic area and lumbar area, ROM is painful, with all movement, Straight leg raises: of both lower extremities does not illicit pain, 23:45 Musculoskeletal/extremity: ROM: intact in all extremities, 23:45 Neuro: Orientation: to person, place \T\ time. Mentation: is normal, Cerebellar function: is grossly normal, Motor: moves all fours, strength is normal, Sensation: is normal, Vital Signs: 22:53 BP 176 / 93; Pulse 71; Resp 18; Temp 97.1; Pulse Ox 99% on R/A; Weight 67.13 kg; Pain br2 11/28; 23:56 BP 148 / 66; Pulse 77; Resp 18; Pulse Ox 99% ; kt5 02/28 00:49 BP 146 / 72; Pulse 64; Resp 18; Pulse Ox 99% ; Pain 4/10; kt5 01:46 BP 162 / 85; Pulse 65; Resp 16; Pulse Ox 96% ; kt5 02:31 BP 144 / 70; Pulse 73; Resp 18; Temp 98.3; Pulse Ox 97% ; Pain /10; kt5 02/27 22:53 Pain Scale: Adult br2 02/28 00:49 Pain Scale: Adult kt5 02:31 Pain Scale: Adult kt5 MDM: 02/27 23:38 Medical Screening Exam initiated cp 02/28 02:31 Data reviewed: vital signs, nurses notes, lab test result(s), radiologic studies, CT cp scan, and as a result, I will discharge patient. 02:31 Differential diagnosis: closed head injury, contusion, fracture, spinal fracture. I cp considered the following discharge prescriptions or medication management in the emergency department Medications were administered in the Emergency Department. See MAR. Test considered but Not performed: MRI: thoracic and lumbar spine. Care significantly affected by the following chronic conditions: Hypertension. Counseling: I had a detailed discussion with the patient and/or guardian regarding the historical points, exam findings, and any diagnostic results supporting the discharge/admit diagnosis, lab results, radiology results, to return to the emergency department if symptoms worsen or persist or if there are any questions or concerns that arise at home. Response to treatment: the patient's symptoms have mildly improved after treatment, and as a result, I will discharge patient. 02/27 23:31 Order name: Basic Metabolic Panel; Complete Time: 02:17 cp 02/28 02:17 Interpretation: Normal except: CL 108; GLUC 126; BUN 30; CRE 1.03; GFR 55; CA 11.0. 02/27 23:31 Order name: CBC with Diff; Complete Time: 02:17 cp 02/28 02:18 Interpretation: Normal except: WBC 11.20; RDW 17.2; MPV 7.3; NEUT A 8.1. 02/27 23:31 Order name: Type And Screen; Complete Time: 02:17 cp 02/27 23:47 Order name: Chest Abd Pelvis Wo Con EDMS 02/27 23:48 Order name: Head C Spine Mpr Wo Con EDMS 02/28 02:19 Interpretation: Report reviewed. cp 02/27 23:31 Order name: Labs collected and sent; Complete Time: 23:55 cp Administered Medications: 02/27 23:56 Drug: Acetaminophen PO 1000 mg PO once Route: PO; br2 02/28 01:07 Follow up: Response: No adverse reaction; Pain is decreased kt5 Disposition: 04:02 Co-signature as Attending Physician, Taqueria Peralta DO I reviewed the patient's care tt7 provided by the Advanced Practice Provider and agree with the diagnosis and treatment plan. Disposition Summary: 02/28/25 02:32 Discharge Ordered Notes: Location: Home cp Problem: new cp Symptoms: have improved cp Condition: Stable cp Diagnosis - Fall on same level from slipping, tripping and stumbling with subsequent striking cp against object - Fracture of thoracic vertebra - compression type of T12 cp Followup: cp - With: Sourav Gomez MD - When: 5 - 6 days - Reason: Recheck today's complaints Discharge Instructions: - Discharge Summary Sheet cp - Spinal Compression Fracture cp - Fall Prevention in the Home, Adult cp Forms: - Medication Reconciliation Form cp - Antibiotic Education cp - Prescription Opioid Use cp - Patient Portal Instructions cp - Leadership Thank You Letter cp Signatures: Dispatcher [employer] EDMS Andre Hyman PA-C PA-C cp Arabella Ardon RN RN br2 Taqueria Peralta DO DO tt7 Bea Vega RN kt5 Corrections: (The following items were deleted from the chart) 02/27 23:46 23:44 Head C Spine Cap Wo [id number].[id number] ordered. EDMS EDMS 02/28 02:35 02/27 23:50 Back: Positive for pain at rest, pain with movement, of the thoracic area cp and lumbar area, cp 02/28 02:35 02/27 23:50 Neuro: Negative for altered mental status, dizziness, loss of cp consciousness, weakness, cp
[2025-02-28 03:06] VITALS: BP 144/70; TEMP 98.3; O2SAT 97
== END 2025-02-28 02:42 | disposition home or self-care (01) ==
LOC: ER 22:41
DX: S22.080A Wedge compression fracture of T11-T12 vertebra, initial encounter for closed fracture (principal); W01.198A Fall on same level from slipping, tripping and stumbling with subsequent striking against other object, initial encounter
CPT/HCPCS: 36415; 70450; 71250; 72125; 74176; 80048; 85025; 86850; 86900; 86901; 99285